=== PATIENT | female | born 2000 | race Caucasian/White ===

== ENCOUNTER 2020-06-01 17:41 | Emergency (ER) | payer OTHER, SELFPAY ==
[2020-06-01 17:56] VITALS: BP 141/78; PULSE 114; RESP 16; O2SAT 99; BMI 35.2
--- NOTE | 2020-06-01 17:58 | XR_ITS ---
PROCEDURE: XR CHEST PORTABLE Referring Doctor: ArnettPepito ruth Patient Age:20Y CLINICAL HISTORY: cough patient is nauseous COMPARISON: No exams were available for comparison FINDINGS: AP portable upright chest performed today with no previous for comparison The lungs are well expanded and clear with nothing definitely acute. Heart is normal size roxy and mediastinal structures unremarkable The cardiomediastinal silhouette and pulmonary vascularity are within normal limits. The lungs are clear without infiltrates, suspicious nodules, or pleural effusions. No acute bony abnormalities. IMPRESSION: No acute findings. Lungs clear Dictated by: Brijesh Laguna MD 06/01/2020 21:49 Brijesh Laguna MD in [place] 06/01/2020 21:49
[2020-06-01 18:07] LABS: Basophils # 0.1 K/mm3 (0-0.2); Basophils % 0.3 % (0.1-2.0); Eosinophils # 0.4 K/mm3 (0.0-0.4); Eosinophils % 2.3 % (0.1-12.0); Hematocrit 40.8 % (37.0-47.0); Hemoglobin 13.6 g/dL (12.2-16.2); Lymphocytes # 1.9 K/mm3 (0.7-4.5); Lymphocytes % 10.4 % (10-50); Mean Corpuscular HGB Conc 33.3 g/dL (31.8-35.4); Mean Corpuscular Hemoglobin 27.4 pg (27.0-31.2); Mean Corpuscular Volume 82.4 fl (81-99); Mean Platelet Volume 6.9 fl (7.4-10.4); Monocytes % 5.3 % (1.7-9.3); Neutrophils # 15.3 K/mm3 (1.8-7.8); Neutrophils % 81.8 % (37.0-80.0); Platelet Count 426 K/mm3 (142-424); Red Blood Count 4.95 M/mm3 (4.20-5.40); Red Cell Distribution Width 13.1 % (11.5-17.5); White Blood Count 18.7 K/mm3 (4.8-10.8)
[2020-06-01 18:08] LABS: Chloride 100 mmol/L (98-107); MANUAL DIFFERENTIAL MANUAL DIFFERENTIAL (MANUAL DIFF); Potassium 3.8 mmoL/L (3.5-5.1); Sodium 136 mmol/L (136-145)
[2020-06-01 18:09] VITALS: BP 141/78; PULSE 115; O2SAT 98
[2020-06-01 18:11] LABS: Anion Gap 13.8 mEq/L (5-15); Blood Urea Nitrogen 7 mg/dl (7-17); Calcium 9.1 mg/dl (8.4-10.2); Carbon Dioxide 26 mmol/L (22.0-30.0); Creatinine Clearance Estimated 191 mL/min (50-200); Estimated Glomerular Filt Rate 126 ml/min (>60); GFR (African American) 153 ML/MIN (>60); Glucose 101 mg/dl (74-100)
[2020-06-01 18:12] LABS: HCG Qualitative, Serum Negative (Negative)
--- NOTE | 2020-06-01 18:17 | ECG_ITS ---
APPROVED REPORT Exam: Resting ECG HR:117 bpm ECG Measurements Heart Rate 117 AXES WA 138 P 49 QRSd 80 QRS 79 QT 304 T 34 QTc 424 Conclusion Sinus tachycardia Otherwise normal ECG Electronically signed by : Bandar Meyer, 06/02/2020 06:52:10
[2020-06-01 18:23] LABS: Eosinophils % 1 % (0-3); Lymphocytes % 5 % (10-50); Neutrophils % 86 % (42-76); Platelet Estimate Normal; RBC Morphology Normal; Total Cells Counted 100; Toxic Granulation 1+
[2020-06-01 18:37] VITALS: BP 148/89; PULSE 118; O2SAT 98
[2020-06-01 18:37] LABS: Coronavirus 19 IgG Antibody Negative (Negative); Coronavirus 19 IgM Antibody Negative (Negative)
[2020-06-01 19:03] LABS: Microscopic, Urine URINE MICROSCOPIC (MICROSCOPIC)
[2020-06-01 19:09] LABS: Appearance,Urine CLEAR (Clear); Bilirubin,Urine Negative (Negative); Blood, Urine 1+ (Negative); Color,Urine YELLOW (Yellow); Glucose,Urine (UA) Negative (Negative); Ketones,Urine Negative (Negative); Leukocyte Esterase,Urine Negative (Negative); Nitrate,Urine Negative (Negative); PH,Urine 6.5 (5.0-8.5); Protein,Urine Negative (Negative); Urobilinogen,Urine 0.2 EU/dl (0.2)
[2020-06-01 19:13] LABS: Mucus,Urine 1+ /lpf
--- NOTE | 2020-06-01 19:18 | HMH.EDGENADL ---
ED Disposition Clinical Impression: Upper respiratory infection, Viral infection Disposition: Home, Self-Care Condition on Discharge: Fair Instructions: DI for Acute Bronchitis Prescriptions: ondansetron HCL [Zofran 4mg Tab*] 4 mg PO TIDP PRN #[id number] tab PRN Reason: Nausea Transmission Status: Pending to [facility] Referrals: Amanda Morgan MD [Primary Care Provider] - - Critical Care Critical Care Time: No Attestation: On 06/01/20, the high probability of a clinically significant, sudden or life threatening deterioration of the following system(s) required my full and direct attention, intervention and personal management. The time I documented below is in addition to time spent performing reported procedures but includes the following listed in this critical care notation. Medical Decision Making - Medical Records Medical records reviewed: Yes: I reviewed the patient's medical records. - Juan Inquiry Pt receiving controlled substance: No Vital Signs: 06/01/20 17:56 06/01/20 18:09 06/01/20 18:37 Pulse Rate [Right Brachial] 114 H 115 H 118 H Respiratory Rate 16 Blood Pressure [Right Arm] 141/78 H 141/78 H 148/89 H Blood Pressure Mean [Right Arm] 99 99 108 Blood Pressure Source [Right Arm] Automatic Cuff Automatic Cuff Automatic Cuff Blood Pressure Position [Right Arm] Sitting Sitting Sitting 02 Sat by Pulse Oximetry 99 98 98 Oxygen Delivery Method Room Air Room Air Room Air - Lab Data Lab Results 06/01/20 17:55: Sodium 136, Potassium 3.8, Chloride 100, Carbon Dioxide 26, Anion Gap 13.8, BUN 7, Creatinine 0.60, Estimated Creat Clear 191, Estimated GFR 126, Est GFR ( Amer) 153, Glucose 101 H, Calcium 9.1 06/01/20 17:55: Serum HCG, Qual Negative 06/01/20 17:55: WBC 18.7 H, RBC 4.95, Hgb 13.6, Hct 40.8, MCV 82.4, MCH 27.4, MCHC 33.3, RDW 13.1, Plt Count 426 H, MPV 6.9 L, Neut % (Auto) 81.8 H, Lymph % (Auto) 10.4, [place]ower % (Auto) 5.3, Eos % (Auto) 2.3, Baso % (Auto) 0.3, Neut # (Auto) 15.3 H, Lymph # (Auto) 1.9, Mower # (Auto) 1.0, Eos # (Auto) 0.4, Baso # (Auto) 0.1, Total Counted 100, Neutrophils % (Manual) 86 H, Band Neutrophils % 8.0, Lymphocytes % (Manual) 5 L, Eosinophils % (Manual) 1, Toxic Granulation 1+, Platelet Estimate Normal, RBC Morphology Normal 06/01/20 17:55: SARS-CoV-2 IgG Ab (Rapid) Negative, SARS-CoV-2 IgM Ab (Rapid) Negative 06/01/20 19:00: Urine Color Yellow, Urine Appearance Clear, Urine pH 6.5, Ur Specific [facility] 1.010, Urine Protein Negative, Urine Glucose (UA) Negative, Urine Ketones Negative, Urine Blood 1+, Urine Nitrate Negative, Urine Bilirubin Negative, Urine Urobilinogen 0.2, Ur Leukocyte Esterase Negative, Urine RBC 3-5, Urine Mucus 1+ Result diagrams: 06/01/20 17:55 06/01/20 17:55 Orders (Tests/Meds): ED MEDICATIONS Generic Name Dose Route Start Last Admin Trade Name Freq PRN Reason Stop Dose Admin Sodium Chloride 1,000 mls @ 999 mls/hr 06/01/20 18:15 06/01/20 18:12 Sod Chlor 0.9% 1000ml Bag IV 06/01/20 19:15 999 mls/hr .Q1H1M ABRIL Administration Lactated Ringer's 1,000 mls @ 999 mls/hr 06/01/20 18:15 Lactated Ringer's 1000 Ml Bag IV 06/01/20 19:15 .Q1H1M ABRIL Discontinued Medications Generic Name Dose Route Start Last Admin Trade Name Freq PRN Reason Stop Dose Admin Acetaminophen 1,000 mg 06/01/20 18:00 06/01/20 18:12 Acetaminophen 500mg Tab PO 06/01/20 18:01 1,000 mg ONCE ONE Administration Lactated Ringer's 2,000 mls @ 999 mls/hr 06/01/20 18:00 06/01/20 18:14 Lactated Ringer's 1000 Ml Bag IV 06/01/20 20:00 Not Given .Q2H1M ABRIL Ibuprofen 400 mg 06/01/20 18:00 06/01/20 18:10 Ibuprofen 400 Mg Tablet PO 06/01/20 18:01 400 mg ONCE ONE Administration Ondansetron HCl 4 mg 06/01/20 18:00 06/01/20 18:14 Ondansetron 4mg Odt SL 06/01/20 18:01 Not Given ONCE ONE Ondansetron HCl 4 mg 06/01/20 18:05 06/01/20 18:12 Ondansetron 4mg/2ml Vial IV 06/01/20 18:06 4 mg ONCE
[2020-06-01 19:57] VITALS: BP 103/52; PULSE 101; RESP 16; TEMP 36.7; O2SAT 100
== END 2020-06-01 20:42 | disposition home or self-care (01) ==
PROVIDERS: Emergency Provider Emergency Medicine; PCP Family Medicine
DX: J06.9 Acute upper respiratory infection, unspecified (principal); Z01.84 Encounter for antibody response examination
CPT/HCPCS: 71045; 80048; 81001; 84703; 85007; 85025; 86328; 93005; 96365; 96366; 96375; 99283; J2405

== ENCOUNTER 2021-10-08 14:08 | Outpatient (CLI) | payer OTHER, SELFPAY ==
[2021-10-08 14:13] VITALS: BP 160/84; PULSE 115; RESP 20; TEMP 36.9; O2SAT 98; BMI 37.8
[2021-10-08 14:55] LABS: Fetal Membrane Rupture (Rapid) Negative (Negative)
== END 2021-10-08 15:15 | disposition home or self-care (01) ==
LOC: OBOUT 14:10 → OB 14:11
PROVIDERS: Visit Provider Nurse Practitioner Obstetrics & Gynecology
DX: O26.892 Other specified pregnancy related conditions, second trimester (principal); Z3A.22 22 weeks gestation of pregnancy
CPT/HCPCS: 59025; 84112; G0463

== ENCOUNTER → 2021-10-29 12:51 | Outpatient (CLI) | payer OTHER, SELFPAY | PROVIDERS: PCP Family Medicine; Visit Provider Family Medicine | DX: I49.9 Cardiac arrhythmia, unspecified (principal) | CPT/HCPCS: 93225; 93226 ==

== ENCOUNTER 2023-09-29 15:37 | Outpatient (CLI) | payer OTHER, SELFPAY ==
[2023-09-29 18:12] LABS: HCG,Quantitative < 2 mIU/ml (0-5.42)
== END 2023-09-29 23:59 ==
PROVIDERS: PCP Family Medicine; Visit Provider Nurse Practitioner Obstetrics & Gynecology
DX: Z32.01 Encounter for pregnancy test, result positive (principal)
CPT/HCPCS: 36415; 84702

== ENCOUNTER 2023-10-01 15:34 | Emergency (ER) | payer OTHER, SELFPAY ==
[2023-10-01 15:45] VITALS: BP 145/84; PULSE 113; RESP 20; TEMP 37.3; O2SAT 100; BMI 37.3
--- NOTE | 2023-10-01 15:58 | EXP.UTC ---
Discharge Plan Disposition Patient Disposition: Home, Self-Care Condition: Good Prescriptions Prescriptions: New penicillin V potassium 250 mg/5 mL recon soln 500 mg PO BID 10 Days Qty: 200 0RF No Action levonorgestrel-ethinyl estrad [Aviane] 0.1-20 mg-mcg tablet See Rx Instructions .ROUTE .COMPLEX Qty: 28 12RF Dose Instruction: TAKE ONE TABLET BY MOUTH EVERY DAY Rx Instructions: TAKE ONE TABLET BY MOUTH EVERY DAY duloxetine 30 mg capsule,delayed release(DR/EC) 30 mg PO DAILY Referrals Follow up/Referrals: Amanda Morgan MD [Primary Care Provider] - See instructions Activity Restrictions/Add. Instructions Additional Instructions/Restrictions: *Monitor Temp, Over the counter Motrin or Tylenol as directed/as needed Tylenol every 4 hours and Motrin every 6 hours (as long as your family doctor has told you that you can take it) for fever or pain. and straight to ER if unable to lower temp less than 101.0 after medication given *Warm salt water gargles may help to soothe the throat *Throat Lozenges? *Warm fluids like tea with honey may help to soothe the throat? *Sleep elevated? *Humidifier/Vaporizer *If you did not take Penicillin shot or was unable to, start taking antibiotic immediately and make sure that you take it for the FULL length of time although you should start to feel better in 24-48 hours *change toothbrush and toothpaste 24-48 hours after starting to take antibiotics so you do not reinfect yourself Monitor Temp. Tylenol and/or Ibuprofen as needed. ER if fever is no less than 101 despite alternating Tylenol and Ibuprofen * Encourage fluids, water, Gatorade, powerade, pedialyte if /toddler/or child *Cold fluids, popsicles and ice cream may feel good on his throat Follow up IMMEDIATELY for new or worsening symptoms or no Noticeable improvement over the next 48-72 hours. 911 for difficulty breathing or swallowing Clinical Impressions Clinical Impression: Strep throat Stand Alone Forms Stand Alone Forms: Work/School Release Instructions Patient Instructions: DI for Strep Throat, Strep Throat Discharge ED Provider: Sheree Early [facility] [place] HPI General Stated complaint: sore throat Mode of Arrival: Ambulatory Source of Information: Patient Limitations: No Limitations Time Seen by Provider: 10/01/23 15:58 Description of Symptoms (Recalled from Triage Doc. by RN): PATIENT C/O SORE THROAT, HEADACHE, AND FEVER THAT STARTED LAST NIGHT HEENT Symptoms (Recalled from RN notes): Yes Resp Symptoms (Recalled from RN notes): No Skin Symptoms (Recalled from RN notes): No MS Symptoms (Recalled from RN notes): No Functional Status (Recalled from RN notes): WNL History of Present Illness Provider Complaint: Patient states that she started last night with sore throat and headache States today it hurts bad when she swallows and her throat feels swollen and irritated Related Data Home Medications Medication Instructions Recorded Confirmed duloxetine 30 mg capsule,delayed 30 mg PO DAILY 10/01/23 10/01/23 release Previous Rx's Medication Instructions Recorded levonorgestrel-ethinyl estradiol See Rx Instructions .Route 06/01/23 0.1 mg-20 mcg tablet (Aviane) .COMPLEX #28 tabs penicillin V potassium 250 mg/5 mL 500 mg (10 mL) PO BID 10 days #200 10/01/23 oral solution mL Allergies Allergy/AdvReac Type Severity Reaction Status Date / Time No Known Allergies Allergy Verified 03/30/22 08:45 Worker's Comp Is this a Worker's Comp case?: No [facility] Disclaimer: The information contained in this section may have been updated after the patient was seen, as this information can be updated by other users. Social History Smoking Status: Never smoker alcohol intake: never current occupational status: employed Travel in the last 8 weeks: None ROS Obtained: Yes All systems reviewed & no additional complaints except as documented and Yes Systems reviewed as appropriate & no additional complaints except as documented Constitutional Constitutional: Reports system reviewed and no additional complaints, except as documented, Reports as per HPI and Reports headache(s) ENT Ears, Nose, Mouth, and Throat: Reports system reviewed and no additional complaints, except as documented, Reports as per HPI, Reports headache(s) and Reports sore throat Cardiovascular Cardiovascular: Reports system reviewed and no additional complaints, except as documented and Reports as per HPI Respiratory Respiratory: Reports system reviewed and no additional complaints, except as documented and Reports as per HPI Gastrointestinal Gastrointestingal: Reports system reviewed and no additional complaints, except as documented and as per HPI Neurologic Neurologic: Reports headache(s) Physical Exam General General appearance: alert and in no apparent distress ENT ENT exam: Present mucous membranes moist Expanded ENT Exam Throat exam: Present tonsillar erythema and tonsillar exudate Respiratory Respiratory exam: Present normal lung sounds bilaterally; Absent respiratory distress or wheezes Cardiovascular Cardiovascular exam: Present regular rate, normal rhythm and tachycardia Neurological Exam Neurological exam: Present alert, oriented X3 and normal gait Medical Decision Making Juan Inquiry Pt receiving controlled substance: No Juan was queried for this patient: No Vital Signs: 10/01/23 15:45 Temperature 99.1 F Temperature Source Oral Pulse Rate [Left Brachial] 113 H Respiratory Rate 20 Blood Pressure [Left Arm] 145/84 H Blood Pressure Mean [Left Arm] 104 Blood Pressure Source [Left Arm] Automatic Cuff Blood Pressure Position [Left Arm] Sitting 02 Sat by Pulse Oximetry 100 Oxygen Delivery Method Room Air Lab Data Lab results reviewed: Yes I reviewed the patient's lab results.
[2023-10-01 15:59] VITALS: BP 145/84; PULSE 113; RESP 20; TEMP 37.3; O2SAT 100
[2023-10-01 15:59] LABS: UTC Strep Screen (Rapid) Positive (Negative)
[2023-10-01 16:07] LABS: UTC Influenza A Antigen Negative (Negative); UTC Influenza B Antigen Negative (Negative)
== END 2023-10-01 16:07 | disposition home or self-care (01) ==
PROVIDERS: Emergency Provider Nurse Practitioner; PCP Family Medicine
DX: J02.0 Streptococcal pharyngitis (principal); R51.9 Headache, unspecified; R50.9 Fever, unspecified
CPT/HCPCS: 87804; 87880; 99204; 99212; G0463

== ENCOUNTER 2023-12-27 12:55 | Outpatient (CLI) | payer OTHER, SELFPAY ==
[2023-12-27 14:25] LABS: HCG,Quantitative < 2 mIU/ml (0-5.42)
== END 2023-12-27 23:59 | disposition home or self-care (01) ==
LOC: LAB 12:56
PROVIDERS: PCP Family Medicine; Visit Provider Obstetrics & Gynecology
DX: Z32.01 Encounter for pregnancy test, result positive (principal)
CPT/HCPCS: 36415; 84702

== ENCOUNTER 2024-01-04 18:31 | Emergency (ER) | payer OTHER, SELFPAY ==
[2024-01-04 18:32] VITALS: BP 145/90; PULSE 83; RESP 18; TEMP 36.8; O2SAT 100; BMI 38.2
[2024-01-04 18:42] VITALS: BP 145/90; PULSE 89; O2SAT 100
--- NOTE | 2024-01-04 18:42 | ED_ITS ---
Discharge Plan Disposition Patient Disposition: Home, Self-Care Prescriptions Prescriptions: No Action levonorgestrel-ethinyl estrad [Aviane] 0.1-20 mg-mcg tablet See Rx Instructions .ROUTE .COMPLEX Qty: 28 12RF Dose Instruction: TAKE ONE TABLET BY MOUTH EVERY DAY Rx Instructions: TAKE ONE TABLET BY MOUTH EVERY DAY duloxetine 30 mg capsule,delayed release(DR/EC) 30 mg PO DAILY penicillin V potassium 250 mg/5 mL recon soln 500 mg PO BID 10 Days Qty: 200 0RF Referrals Follow up/Referrals: Amanda Morgan MD [Primary Care Provider] - See instructions Activity Restrictions/Add. Instructions Additional Instructions/Restrictions: Your quantitative beta-hCG was undetectably low no evidence that you had a , miscarriage, or other emergent medical condition such as an ectopic . Your symptoms are consistent with abnormal uterine bleeding which is most of the time from some hormonal imbalance. Please follow-up with her [employer] doctor if you would like you may return to the emergency department if you are bleeding through more than 1 pad an hour or other concerns. Clinical Impressions Clinical Impression: Abnormal uterine bleeding Discharge ED Provider: Alan Boyle General Adult HPI General Chief complaint: Vaginal Bleeding Stated complaint: vaginal bleeding, poss miscarriage Time Seen by Provider: 01/04/24 18:34 History of Present Illness HPI narrative: Patient is a 23-year-old female presenting today with possible and vaginal bleeding. She is a G1, P1 and states that she had positive test at home however recently followed up with her [employer] doctor and had an undetectable quantitative beta-hCG so she is not sure as to whether or not she was . She was 6 days late with her period and now is having some vaginal bleeding/spotting nothing significant and some lower back cramping. No significant pain. She is trying to get , this was intentional. She has close follow-up with Dr. Gomez. Related Data Home Medications Medication Instructions Recorded Confirmed duloxetine 30 mg capsule,delayed 30 mg PO DAILY 10/01/23 10/01/23 release Previous Rx's Medication Instructions Recorded levonorgestrel-ethinyl estradiol See Rx Instructions .Route 06/01/23 0.1 mg-20 mcg tablet (Aviane) .COMPLEX #28 tabs penicillin V potassium 250 mg/5 mL 500 mg (10 mL) PO BID 10 days #200 10/01/23 oral solution mL Allergies Allergy/AdvReac Type Severity Reaction Status Date / Time No Known Allergies Allergy Verified 03/30/22 08:45 [facility] Disclaimer: The information contained in this section may have been updated after the patient was seen, as this information can be updated by other users. Social History Smoking Status: Never smoker alcohol intake: never current occupational status: employed Travel in the last 8 weeks: None ROS Obtained: Yes All systems reviewed & no additional complaints except as documented Physical Exam General General appearance: alert and in no apparent distress Respiratory Respiratory exam: Present normal lung sounds bilaterally Cardiovascular Cardiovascular exam: Present regular rate Abdominal Exam Abdominal exam: Present soft; Absent distention or tenderness Neurological Exam Neurological exam: Present alert and oriented X3 Medical Decision Making Juan Inquiry Pt receiving controlled substance: No Vital Signs: 01/04/24 18:32 01/04/24 18:42 01/04/24 19:00 Temperature 98.2 F Temperature Source Oral Pulse Rate 89 84 Pulse Rate [Radial] 83 Respiratory Rate 18 Blood Pressure 145/90 H 124/72 Blood Pressure [Right Arm] 145/90 H Blood Pressure Mean [Right Arm] 108 Blood Pressure Source [Right Arm] Automatic Cuff Blood Pressure Position [Right Arm] Sitting 02 Sat by Pulse Oximetry 100 100 100 Oxygen Delivery Method Room Air Room Air Lab Data Lab results reviewed: Yes I reviewed the patient's lab results. Lab Results 01/04/24 18:48: WBC 7.3, RBC 4.50, Hgb 12.1 L, Hct 36.1 L, MCV 80.3 L, MCH 26.9 L, MCHC 33.5, RDW 14.4, Plt Count 404, MPV 6.7 L, Neut % (Auto) 55.1, Lymph % (Auto) 35.8, [place] % (Auto) 5.8, Eos % (Auto) 2.6, Baso % (Auto) 0.7, Neut # (Auto) 4.0, Lymph # (Auto) 2.6, [place] # (Auto) 0.4, Eos # (Auto) 0.2, Baso # (Auto) 0.1, PT 10.7, INR 0.99, APTT 26.7, Sodium 139, Potassium 4.0, Chloride 106, Carbon Dioxide 26, Anion Gap 11.0, BUN 10, Creatinine 0.70, Estimated Creat Clear 174, Estimated GFR 103, Est GFR ( Amer) 124, Glucose 91, Calcium 8.8, Total Bilirubin 0.3, AST 25, ALT 20, Alkaline Phosphatase 74, Total Protein 7.5, Albumin 4.3, Globulin 3.2, Albumin/Globulin Ratio 1.3, HCG, Quant < 2 01/04/24 18:48 01/04/24 18:48 Orders (Tests/Meds): ORDERS Category Date Time Status POCUS Point of Care (ER Only) Stat Exams 01/04/24 18:34 Ordered Beta HCG, Quant [HCG,Quantitative] Stat Lab 01/04/24 18:48 Completed CBC w/Auto Diff [Complete Blood Count Auto Diff] Stat Lab 01/04/24 18:48 Completed CMP [Comprehensive Metabolic Panel] Stat Lab 01/04/24 18:48 Completed PT/PTT Stat Lab 01/04/24 18:48 Completed Medical Decision Narrative: 23-year-old G1, P1 presenting today with vaginal spotting and possible with positive home test but recent undetectably low quantitative hCG. Limited bedside ultrasound did not demonstrate an IUP cannot rule out intrauterine nor ectopic at this point. Will get a another quantitative beta-hCG is unlikely that she is with this recent history. Likely just abnormal uterine bleeding. She is very stable in appearance abdominal exam is benign will reassess after these blood test return. Assessment 7:38 PM patient's quantitative hCG is once again undetectably low this is not consistent with a more consistent with abnormal uterine bleeding most likely secondary to hormone imbalance. She may follow-up with her [employer] doctor return with any significant worsening of her symptoms. Labs otherwise unremarkable she remains hemodynamically stable and serial abdominal exams are benign. Procedures Miscellaneous Procedure Procedure Performed: Limited OB ultrasound Indication: Positive home test Identified structures: [-Uterus -Left adnexa -Right adnexa -Pouch of Suhail] Findings: Uterus: No definitive IUP Uterus appears decompressed and a normal vaginal stripe Right adnexa: No free fluid Left adnexa: No free fluid Cul de sac: No free Impression: No evidence of intrauterine cannot rule out ectopic no free fluid noted Images were saved to permanent archive The study was technically adequate CPT Transabdominal: 59598-31 This study was performed by me, and I personally interpreted all images/videos. Based on my clinical judgement, these images were adequate and did not necessitate further imaging. Critical Care Critical Care Time Critical Care Time: No
[2024-01-04 18:59] LABS: Basophils # 0.1 K/mm3 (0-0.2); Basophils % 0.7 % (0.1-2.0); Eosinophils # 0.2 K/mm3 (0.0-0.4); Eosinophils % 2.6 % (0.1-12.0); Hematocrit 36.1 % (37.0-47.0); Hemoglobin 12.1 g/dL (12.2-16.2); Lymphocytes # 2.6 K/mm3 (0.7-4.5); Lymphocytes % 35.8 % (10-50); Mean Corpuscular HGB Conc 33.5 g/dL (31.8-35.4); Mean Corpuscular Hemoglobin 26.9 pg (27.0-31.2); Mean Corpuscular Volume 80.3 fl (81-99); Mean Platelet Volume 6.7 fl (7.4-10.4); Monocytes # 0.4 K/mm3 (0.1-1.0); Monocytes % 5.8 % (1.7-9.3); Neutrophils % 55.1 % (37.0-80.0); Platelet Count 404 K/mm3 (142-424); Red Cell Distribution Width 14.4 % (11.5-17.5); White Blood Count 7.3 K/mm3 (4.8-10.8)
[2024-01-04 19:00] VITALS: BP 124/72; PULSE 84; O2SAT 100
[2024-01-04 19:10] LABS: Chloride 106 mmol/L (98-107); Sodium 139 mmol/L (136-145)
[2024-01-04 19:12] LABS: Alanine Aminotransferase 20 U/L (12-78); Alkaline Phosphatase 74 U/L (38-126); Aspartate Amino Transferase 25 U/L (14-36); Bilirubin,Total 0.3 mg/dl (0.2-1.3); Blood Urea Nitrogen 10 mg/dl (7-17); Creatinine Clearance Estimated 174 mL/min (50-200); Estimated Glomerular Filt Rate 103 ml/min (>60); GFR (African American) 124 ML/MIN (>60)
[2024-01-04 19:13] LABS: Albumin Level 4.3 g/dl (3.5-5.0); Albumin/Globulin Ratio 1.3 (1.1-1.8); Calcium 8.8 mg/dl (8.4-10.2); Carbon Dioxide 26 mmol/L (22.0-30.0); Globulin 3.2 g/dL (1.3-3.2); Glucose 91 mg/dl (74-100); Total Protein,Serum 7.5 g/dl (6.3-8.2)
[2024-01-04 19:17] LABS: Activated Partial Thrombo Time 26.7 seconds (22.8-30.6); INR 0.99 (0.9-1.1); Prothrombin Time 10.7 seconds (10.1-12.5)
[2024-01-04 19:30] LABS: HCG,Quantitative < 2 mIU/ml (0-5.42)
[2024-01-04 19:38] VITALS: BP 111/65; PULSE 87; RESP 15; TEMP 36.7; O2SAT 100
== END 2024-01-04 19:44 | disposition home or self-care (01) ==
PROVIDERS: Emergency Provider Student in an Organized Health Care Education/Training Program; PCP Family Medicine
DX: N93.9 Abnormal uterine and vaginal bleeding, unspecified (principal)
CPT/HCPCS: 80053; 84702; 85025; 85610; 85730; 99284

== ENCOUNTER 2024-06-19 15:24 | Outpatient (CLI) | payer OTHER, SELFPAY ==
[2024-06-19 17:20] LABS: HCG,Quantitative 6603 mIU/ml (0-5.42)
[2024-06-20 03:36] LABS: Progesterone 9.5 ng/mL (.)
== END 2024-06-19 23:59 | disposition home or self-care (01) ==
LOC: LAB 15:26
PROVIDERS: PCP Family Medicine; Visit Provider Nurse Practitioner Obstetrics & Gynecology
DX: Z34.90 Encounter for supervision of normal pregnancy, unspecified, unspecified trimester (principal)
CPT/HCPCS: 36415; 84144; 84702

== ENCOUNTER 2024-06-28 15:01 | Outpatient (CLI) | payer OTHER, SELFPAY ==
--- NOTE | 2024-06-28 15:03 | US_ITS ---
PROCEDURE: US OB <= 14 WEEKS FETUS CLINICAL INDICATION: Dates /Confirmation COMPARISON: US POINT OF CARE US (ER ONLY) from 01/04/2024 FINDINGS: Transvaginal sonographic images of the pelvis were obtained. Her last menstrual period is unknown. An intrauterine gestational sac is present with a pole with a crown-rump length of 0.53cm This correlates to a gestational age of 6weeks 3days. IVETT will be 02/18/2025 heart rate activity is present with an FHR of 126bpm. Yolk sac is noted. The yolk sac measures 4.7mm. The right ovary is seen and appears normal. There is a corpus luteum in the right ovary. The left ovary is seen and appears normal. There is no fluid in the cul-de-sac. IMPRESSION: 1. Embryo within the uterine cavity currently measuring 6 weeks 3 days. heart rate activity is seen. 2. IVETT will be 02/18/2025 based on this ultrasound. 3. Both ovaries are seen and appear normal. A corpus luteum is present in the right ovary. 4. No fluid in the cul-de-sac. Dictated by: Xavier Black MD 06/29/2024 03:07 Xavier Black MD in [place] 06/29/2024 03:08
== END 2024-06-28 23:59 | disposition home or self-care (01) ==
LOC: RAD 15:01
PROVIDERS: PCP Family Medicine; Visit Provider Nurse Practitioner Obstetrics & Gynecology
DX: O36.80X0 Pregnancy with inconclusive fetal viability, not applicable or unspecified (principal)
CPT/HCPCS: 76801

== ENCOUNTER 2024-08-02 10:21 | Outpatient (CLI) | payer OTHER, SELFPAY | END 2024-08-02 23:59 | disposition home or self-care (01) | LOC: LAB.DROPOF 08-03 10:22 | PROVIDERS: PCP Nurse Practitioner Obstetrics & Gynecology; Visit Provider Nurse Practitioner Obstetrics & Gynecology | DX: Z34.81 Encounter for supervision of other normal pregnancy, first trimester (principal) | CPT/HCPCS: 87086 ==

== ENCOUNTER 2024-08-22 15:49 | Outpatient (CLI) | payer OTHER, SELFPAY ==
[2024-08-22 16:10] LABS: Basophils % 0.3 % (0.1-2.0); Eosinophils # 0.1 K/mm3 (0.0-0.4); Eosinophils % 1.4 % (0.1-12.0); Hematocrit 31.1 % (37.0-47.0); Hemoglobin 10.6 g/dL (12.2-16.2); Lymphocytes # 2.2 K/mm3 (0.7-4.5); Lymphocytes % 25.1 % (10-50); Mean Corpuscular HGB Conc 34.1 g/dL (31.8-35.4); Mean Corpuscular Hemoglobin 27.6 pg (27.0-31.2); Mean Platelet Volume 8.5 fl (7.4-10.4); Monocytes # 0.6 K/mm3 (0.1-1.0); Monocytes % 6.6 % (1.7-9.3); Neutrophils # 5.8 K/mm3 (1.8-7.8); Neutrophils % 66.3 % (37.0-80.0); Platelet Count 322 K/mm3 (142-424); Red Blood Count 3.84 M/mm3 (4.20-5.40); Red Cell Distribution Width 13.2 % (11.5-17.5); White Blood Count 8.8 K/mm3 (4.8-10.8)
[2024-08-22 17:25] LABS: HIV Combo NEGATIVE (Negative)
[2024-08-22 17:33] LABS: Hepatitis C Ab Qual. W/ RFX NEGATIVE (Negative)
[2024-08-23 05:08] LABS: Hepatitis B Surface Antigen Negative (Negative)
[2024-08-23 06:39] LABS: Rubella Antibodies, IgG <0.90 index (Immune >0.99)
[2024-08-23 23:39] LABS: RPR W/RFX Titers Nonreactive (Nonreactive)
== END 2024-08-22 23:59 | disposition home or self-care (01) ==
LOC: LAB 15:50
PROVIDERS: PCP Family Medicine; Visit Provider Nurse Practitioner Obstetrics & Gynecology
DX: Z34.81 Encounter for supervision of other normal pregnancy, first trimester (principal)
CPT/HCPCS: 36415; 85025; 86592; 86762; 86803; 86850; 87340; 87389

== ENCOUNTER 2024-10-05 15:02 | Outpatient (CLI) | payer OTHER, SELFPAY ==
--- NOTE | 2024-10-05 15:02 | US_ITS ---
PROCEDURE: US OB /MATERNAL DETAIL CLINICAL INDICATION: 20 week anatomy scan-US OB Complete COMPARISON: US US OB <= 14 WEEKS FETUS from 06/28/2024 FINDINGS: Transabdominal sonographic images of the pelvis were obtained. From her established due date she is . Single viable intrauterine gestation. Cephalic position. Placenta: Posteriorplacenta grade 1. The anterior wall of the uterus is thickened and could represent a small contraction. There is an average amount of fluid. The cervix appears satisfactory. Closed and measuring 3.92 cm in length. Complete survey performed and was unremarkable on the submitted images as in PACS. No discrete anomalies identified on survey imaging by technologist. Active fetus. Three-vessel cord with satisfactory umbilical cord insertion. 4- chamber heart noted. Situs, aortic arch, LVOT, RVOT, three-vessel view appear normal. There is an echogenic area in the left atrium of the heart. Survey of brain & ventricles Unremarkable. Cerebellum, thalamus, choroid plexus, cisterna magna appear normal. Face and neck survey unremarkable. Profile, nasion, lips and nose appeared normal. Diaphragm and chest views unremarkable. Abdomen: Both kidneys noted and unremarkable. Stomach and bladder noted and satisfactory. Spine: Survey of the spine satisfactory with no anomalies identified nor imaged. Cervical, thoracic, lower spine appear normal. Both arms and legs noted. Amniotic Fluid: Adequate. MVP 6.79 cm Measurements: Average ultrasound age 21weeks 4days. Estimated due date by ultrasound age 0702/11/2025. Estimated weight 421g BPD = 21weeks 5days HC = 21weeks 3days AC = 21weeks 2days FL = 21weeks 5days Growth Percentile= 87 Heart Rate = 161bpm Cerebellum = 20weeks 5days Humerus = 21weeks 6days HC/AC is 1.18 FL/BPD is 0.71 FL/AC is 0.23 IMPRESSION: 1. Viable fetus in the cephalic presentation with a posterior placenta grade 1. 2. The fluid is within normal limits with an MVP 6.79 cm. 3. There appears to be a small echogenic area within the left atrium of the heart. 4. There is a thickening of the anterior uterine wall which most likely represents a small contraction. 5. The rest of the anatomical scan appears normal. 6. Suggest a maternal medicine consult to look at the heart. Dictated by: Xavier Black MD 10/05/2024 18:15 Xavier Black MD in [place] 10/05/2024 18:15
== END 2024-10-05 23:59 | disposition home or self-care (01) ==
LOC: RAD 15:02
PROVIDERS: PCP Family Medicine; Visit Provider Nurse Practitioner Obstetrics & Gynecology
DX: Z36.3 Encounter for antenatal screening for malformations (principal); Z3A.20 20 weeks gestation of pregnancy; Z98.891 History of uterine scar from previous surgery
CPT/HCPCS: 76811

== ENCOUNTER 2024-11-22 07:40 | Outpatient (CLI) | payer OTHER, SELFPAY ==
[2024-11-22 09:13] LABS: Basophils % 0.3 % (0.1-2.0); Eosinophils # 0.1 Kmm3 (0.0-0.4); Eosinophils % 1.4 % (0.1-12.0); Hematocrit 33.7 % (37.0-47.0); Hemoglobin 11.5 g/dL (12.2-16.2); Immature Granulocytes # 0.05 10^3uL; Immature Granulocytes % 0.6 %; Lymphocytes # 1.7 K/mm3 (0.7-4.5); Lymphocytes % 19.5 % (10-50); Mean Corpuscular HGB Conc 34.1 g/dL (31.8-35.4); Mean Corpuscular Hemoglobin 28.5 pg (27.0-31.2); Mean Corpuscular Volume 83.6 fl (81-99); Mean Platelet Volume 8.7 fl (7.4-10.4); Monocytes # 0.5 K/mm3 (0.1-1.0); Monocytes % 6.1 % (1.7-9.3); Neutrophils # 6.3 K/mm3 (1.8-7.8); Neutrophils % 72.1 % (37.0-80.0); Nucleated Red Blood Cells # 0 10^3/uL; Nucleated Red Blood Cells % 0 %; Platelet Count 310 K/mm3 (142-424); Red Blood Count 4.03 M/mm3 (4.20-5.40); Red Cell Distribution Width 13.8 % (11.5-17.5); Red Cell Distribution Width-SD 42.1 fL; White Blood Count 8.7 K/mm3 (4.8-10.8)
[2024-11-22 09:25] LABS: Glucose 1 Hour 167 mg/dL (74-100)
[2024-11-22 09:51] LABS: RPR W/RFX Titers Nonreactive (Nonreactive)
== END 2024-11-22 23:59 | disposition home or self-care (01) ==
PROVIDERS: PCP Family Medicine; Visit Provider Nurse Practitioner Obstetrics & Gynecology
DX: O09.93 Supervision of high risk pregnancy, unspecified, third trimester (principal); O24.419 Gestational diabetes mellitus in pregnancy, unspecified control; Z3A.27 27 weeks gestation of pregnancy
CPT/HCPCS: 36415; 82947; 85025; 86592

== ENCOUNTER 2024-11-24 08:43 | Outpatient (CLI) | payer OTHER, SELFPAY ==
[2024-11-24 09:40] LABS: Glucose,Fasting 87 mg/dl (74-100)
[2024-11-24 10:33] LABS: Glucose 1 Hour 208 mg/dL (74-100)
[2024-11-24 11:57] LABS: Glucose 2 Hour 175 mg/dL (74-100)
[2024-11-24 12:58] LABS: Glucose 3 Hour 154 mg/dL (74-100)
== END 2024-11-24 23:59 | disposition home or self-care (01) ==
LOC: LAB 08:43
PROVIDERS: PCP Family Medicine; Visit Provider Nurse Practitioner Obstetrics & Gynecology
DX: E74.39 Other disorders of intestinal carbohydrate absorption (principal)
CPT/HCPCS: 36415; 82951

== ENCOUNTER 2025-01-15 14:09 | Outpatient (CLI) | payer OTHER, SELFPAY ==
--- NOTE | 2025-01-15 14:12 | US_ITS ---
PROCEDURE: US OB BIOPHYSICAL PROFILE CLINICAL INDICATION: Needs for GDM COMPARISON: US US OB <= 14 WEEKS FETUS from 06/28/2024 US US OB /MATERNAL DETAIL from 10/05/2024 FINDINGS: Transabdominal sonographic images of the uterus were obtained. From her established due date she is 35weeks 1day. The following parameters are obtained: Viable Fetus in the cephalic presentation with an a posterior placenta grade 2. Measurements: heart Rate = 146bpm Amniotic fluid index: 19.64cm, MVP 6.59 cm Qualitative AFV:2 Breathing movements: 2 Gross Body Movements: 2 Tone: 2 Biophysical profile score: 8 No obvious anomalies evident.Kidneys, profile, stomach, bladder, four-chamber heart, three-vessel cord appear normal. IMPRESSION: 1. Viable fetus in the cephalic presentation with a posterior placenta grade 2. 2. The fluid is within normal limits with an amniotic fluid index 19.64 cm, MVP 6.59 cm. 3. Biophysical profile is 8/8 with good breathing movement and movement seen. 4. Limited anatomical scan appears normal. Dictated by: Xavier Black MD 01/15/2025 16:07 Xavier Black MD in OV 01/15/2025 16:07
--- OUTSIDE RECORDS SUMMARY | 2025-01-15 14:12 | XMS_ITS | Clinical Summary ---
Author Organization [facility] Address [address] [facility] [place] [address] Phone Care Team Providers Care Electronic Intelligence Officer Name Role Phone Unavailable Primary Care Provider Unavailabl e Allergies No known active allergies Medications vit no.[id number] ic 27 mg iron- 800 mcg Oral Tablet Take 1 Tablet by mouth daily. Active ferrous sulfate 325 mg (65 mg iron) Oral Tablet, Delayed Release (E.C.) Take 1 Tablet by mouth 2 times daily. 60 Tablet 6 2 Active Additional Information Patient not taking.Reported on 03/19/2022 ibuprofen (ADVIL;MOTRIN) 600 mg Oral Tablet Take 1 Tablet by mouth every 6 hours. 60 Tablet 1 02/10/2022 12:40 PM EDT 2 Active Additional Information Patient not taking.Reported on 03/19/2022 acetaminophen (TYLENOL) 500 mg Oral Tablet Take 2 Tablets by mouth every 6 hours. 60 Tablet 1 02/10/2022 12:40 PM EDT 2 Active Additional Information Patient not taking.Reason: Therapy Completed, Reported on 03/19/2022 Active Problems Problem Noted Date Diagnosed Date Delivery of by section 2021 Overview (02/07/2022): LTCS B Botello Uterine Atony EBL 800 Headache 08/18/2021 Overview (08/18/2021): Outside of as well Resolved Problems Problem Noted Date Diagnosed Date Resolved Date Normal labor and delivery 02/05/2022 Fall due to wet surface 12/08/202112/17 Gestational diabetes mellitu s (GDM) affecting 11/12/2021 03/19/2022 Overview (01/20/2022): Diabetic education 31wk EFW 1,829 68%, AC 68%, cephalic 36wk EFW 3,003 63% Recommend Delivery by IVETT Abnormal O'Haro glucose challenge test, antepartum 11/12/2021 03/19/2022 Supervision of normal first , antepartum 07/01/2021 03/19/2022 Overview (10/15/2021): pt GS:declined IVETT by LMP (c/w 7 wk US) PNL's nml COVID vaccine dose at 13wk. 2nd dose scheduled. Anatomy nml, anterior placenta, 3VC GCT Tdap Obesity affecting , antepartum 07/01/2021 03/19/2022 Overview (12/26/2021): HgbA1c 5.3 ASA 81mg qd (obesity, nulliparity) See GDM Immunizations Immunization Administration Dates Next Due PPD Test 10/30/2020 Surgical History Surgery Date Site/Laterality Comments TYMPANOSTOMY TUBE PLACEMENT WISDOM TOOTH EXTRACTION SECTION 02/06/2022 - 02/07/2022 Abdomen/N/A Primary section low transverse uterine incision at 2356 ; Surgeon: Chasidy Robert MD; Location: [facility]; Service: Obstetrics Medical History Medical History Date Comments Diabetes mellitus (HCC) Family History Medical History Relation Name Comments Heart Disease Brother Heart Disease Father Heart Disease Mother Relation Name Status Comments Brother Father Mother Social History Tobacco Use Types Packs/Day Years Used Date Smoking Tobacco: Never Smokeless Tobacco: Never Alcohol Use Standard Drinks/Week Comments Not Currently 0 (1 standard drink = 0.6 oz pur e alcohol) PHQ-2 Answer Date Recorded PHQ-2 Total Score 0 02/05/2022 Sexually Active Control Partners Comments Not Currently Male Comments No Sex and Gender Information Value Date Recorded Sex Assigned at Not on file Legal Sex Female 5:18 PM EDT Gender Identity Not on file Sexual Orientation Not on file Obstetrics History Para Term AB IAB SAB Ectopic Multiple Livin g Live Births 1 1 1 0 1 1 Date Outcome GA Total Labor Labor/2nd/3rd Weight Sex Type Anes PTL Candy A1 A5 Name Clin 022 Term 39w 3d 43h 44m 14h 44m/4h 57m/24h 03m 7 lb 8.6 oz (3.42 kg) M CSP Epidu ral,S jonah N Living 9 9 HAMIL TON,S DIEGO BABY Guyto n, Chasidy Raza MD Complications:Gestational di abetes Delivery Location:[facility] Last Filed Vital Signs Vital Sign Reading Time Taken Comments Blood Pressure 110/68 03/19/2022 9:09 AM EDT Pulse 70 02/10/2022 8:51 AM EDT Temperature 36.9 C (98.5 F) 02/10/2022 8:51 AM EDT Respiratory Rate 18 02/10/2022 8:51 AM EDT Oxygen Saturation 99% 02/10/2022 8:51 AM EDT Inhaled Oxygen Concentration - - Weight 78.7 kg (173 lb 9.6 oz) 03/19/2022 9:09 A M EDT Height 152.4 cm (5') 03/19/2022 9:09 AM EDT Body Mass Index 33.9 03/19/2022 9:09 AM EDT Plan of Treatment Health Maintenance Due Date Last Done Comments Annual Wellness Exam 2002 HPV (1 - 3-dose series) 2014 DTaP/TDaP/Td (1 - Tdap) 2018 Hepatitis B Vaccine (1 of 3 - 19+ 3-dose series) 2018 COVID-19 Vaccine ( - 2023-2 5 season) 2024 09/24/2021, 08/09/2021 Cervical Cancer Screening 07/23/2024 Pap Smear 07/23/2024 07/23/2021 Influenza Vaccine (Season Ended) 2025 Chlamydia Screening Discontinued 01/14/2022, 07/23/2021 Meningococcal B Vaccine Aged Out No l onger eligible based on patient's age to complete this topic Pneumococcal Vaccine 0-49 Aged Out No longer eligible based on patient's age to complete this topic Procedures Procedure Name Priority Date/Time Associated Diagnosis Comments CHLAMYDIA/GC BY TMA Routine 01/14/2022 1 0:30 AM EDT Supervision of normal first , antepartum DIRECTOR PUBLIC SERVICE CYTOLOGY REQUEST (PAP ONLY) Routine 07/23/2021 3:35 PM EST Encounter for supervision of normal first in first trimester from Last 3 Months or Most Recently Relevant to Health Maintenance Results * CHLAMYDIA/GC BY TMA (01/14/2022 10:30 AM EDT) Chlamydia trachomatis Not Detected Not Detected 01/15/2022 2:23 AM EDT PREFERRED Giving Assistant Neisseria gonorrhoeae Not Detected Not Detected 01/15/2022 2:23 AM EDT [employer] Swab SPECIMEN FROM UTERINE CERVIX / Unknown 01/14/2022 10:30 AM EDT 01/14/2022 10:30 AM EDT Narrative PREFERRED Giving Assistant - 01/15/2022 2:23 AM EDT Testing methodology is spragger mediated amplification (TMA) using the Aptima Combo 2 assay from [employer]. A negative result does not completely rule out a Chlamydia trachomatis or Neisseria gonorrhoeae infection due to potential inhibitors or levels present below the limit of detection by this assay. Results are dependent on proper collection and transport of specimen. This test is indicated for medical purposes only and should not be used for legal or forensic purposes. The performance characteristics of this assay were validated by the testing laboratory. This assay is FDA cleared to test the following specimens: clinician-collected endocervical, vaginal, male urethral swab specimens, rectal swabs, and throat/pharyngeal swabs; patient collected vaginal specimens within a clinic setting; Thin Prep Specimens in PreservCyt Solution; and first-stream, unpreserved male and female urine specimens. Detailed methodology is available upon request. Elizabeth William MD MICROBIOLOGY - GENER AL ORDERABLES Final Result [facility], [address] , [place] [address] * DIRECTOR PUBLIC SERVICE CYTOLOGY REQUEST (PAP ONLY) (07/23/2021 3:35 PM EST) CASE REPORT Gynecologic Cytology Report Case: [id number] Authorizing Provider: Abby Aguilar, Collected: 07/23/2021 1535 HOME DEMONSTRATOR Ordering Location: [facility] Received: 07/23/2021 1535 First Screen: [place] Dunbar CT Specimen: LIQUID-BASED PAP - CERVICAL/ENDOCERV ICAL, Cervix, Endocervical 07/25/2021 9:26 AM EST [facility] PAP FINAL DIAGNOSIS Negative for intraepithelial lesion or malignancy 07/25/2021 9:26 AM EST [facility] at 0926 EST MICROSCOPIC DESCRIPTION Microscopic examination is performed and the findings corroborate the diagnosis. 07/25/2021 9:26 AM EST [facility] PAP SMEAR ADEQUACY Satisfactory for evaluation 07/25/2021 9:26 AM EST [facility] PAP ORGANISMS NOTED Abundant bacteria present. 07/25/2021 9:26 AM EST [facility] ENDOCERVICAL T-ZONE Transformation zone present 07/25/2021 9:26 AM EST [facility] EMBEDDED IMAGES 9:26 AM EST [facility] PAP DISCLAIMER The Pap Smear is a screening test that aids in the detection of cervical cancer and cancer precursors. Both false positive and false negative results can occur. The test should be used at regular intervals, and positive results should be confirmed before definitive therapy. Processed using the ThinPrep Art Instructor Automated cytology screening device (Fuzmo). 07/25/2021 9:26 AM EST [facility] Thin Prep ENDOCERVICAL STRUCTURE / Unknown 07/23/2021 3:35 PM EST 07/23/2021 3:35 PM EST Abby Aguilar HOME DEMONSTRATOR CYTOLOGY ORDERABLES Fi [place]al [place] [address] from Last 3 Months or Most Recently Relevant to Health Maintenance Insurance 303[address] TAM [id number] [address] [address] [facility] [address] [address] [address] [address] Advance Directives For more information, please contact: [phone] * Full Code (Latest Code Status on File) Date Activated Date Inactivated Comments 02/05/2022 10:00 PM 02/10/2022 5:14 PM
== END 2025-01-15 23:59 | disposition home or self-care (01) ==
LOC: RAD 14:09
PROVIDERS: PCP Family Medicine; Visit Provider Obstetrics & Gynecology
DX: O24.419 Gestational diabetes mellitus in pregnancy, unspecified control (principal); Z3A.35 35 weeks gestation of pregnancy
CPT/HCPCS: 76819

== ENCOUNTER 2025-01-25 11:15 | Outpatient (CLI) | payer OTHER, SELFPAY ==
--- OUTSIDE RECORDS SUMMARY | 2025-01-26 13:30 | XMS_ITS | Clinical Summary ---
Author Organization [facility] Address [address] [facility] [place] [address] Phone Care Team Providers Care Livestock Judging Coach Name Role Phone Unavailable Primary Care Provider Unavailabl e Allergies No known active allergies Medications vit no.[id number] ic 27 mg iron- 800 mcg Oral [...] 2356 ; Surgeon: Chasidy Robert MD; Location: [facility]; Service: Obstetrics Medical History Medical [...] Chasidy Raza MD Complications:Gestational di abetes Delivery [facility] Last Filed Vital Signs [...] 07/23/2024 Pap Smear 07/23/2024 07/23/2021 Influenza Vaccine (#1) 2025 Chlamydia Screening Discontinued 01/14/2022, 07/23/2021 Meningococcal B Vaccine Aged Out No l onger eligible based on patient's age to complete this topic Pneumococcal Vaccine 0-49 Aged Out No longer eligible based on patient's age to complete this topic Procedures Procedure Name Priority Date/Time Associated Diagnosis Comments CHLAMYDIA/GC BY TMA Routine 01/14/2022 1 0:30 AM EDT Supervision of normal first , antepartum COMMISSION ASSOCIATE CYTOLOGY REQUEST (PAP ONLY) Routine 07/23/2021 3:35 PM EST Encounter for supervision of normal first in first trimester from Last 3 Months or Most Recently Relevant to Health Maintenance Results * CHLAMYDIA/GC BY TMA (01/14/2022 10:30 AM EDT) Chlamydia trachomatis Not Detected Not Detected 01/15/2022 2:23 AM EDT PREFERRED Des[facility] Neisseria gonorrhoeae Not Detected Not Detected 01/15/2022 2:23 AM EDT [employer] [employer] Swab SPECIMEN FROM UTERINE CERVIX / Unknown 01/14/2022 10:30 AM EDT 01/14/2022 10:30 AM EDT Narrative PREFERRED Desk - 01/15/2022 2:23 AM EDT Testing methodology is consumer lender mediated amplification (TMA) using the Aptima Combo 2 assay from [employer]. A negative result does not completely rule [...] AL ORDERABLES Final Result [facility], [address] , [place] [address] * COMMISSION ASSOCIATE CYTOLOGY REQUEST (PAP ONLY) (07/23/2021 3:35 PM EST) CASE REPORT Gynecologic Cytology Report Case: [id number] Authorizing Provider: Abby Aguilar, Collected: 07/23/2021 1535 PERSONAL CARE WORKER Ordering Location: [facility] Received: 07/23/2021 1535 First Screen: [place] Dunbar CT Specimen: LIQUID-BASED PAP - CERVICAL/ENDOCERV ICAL, Cervix, Endocervical 07/25/2021 9:26 AM EST [facility] PAP FINAL DIAGNOSIS Negative for intraepithelial lesion or malignancy 07/25/2021 9:26 AM EST [facility] at 0926 EST MICROSCOPIC DESCRIPTION Microscopic examination is performed and the findings corroborate the diagnosis. 07/25/2021 9:26 AM EST [facility] PAP SMEAR ADEQUACY Satisfactory for evaluation 07/25/2021 9:26 AM EST [facility] PAP ORGANISMS NOTED Abundant bacteria present. 07/25/2021 9:26 AM EST [facility] ENDOCERVICAL T-ZONE Transformation zone present 07/25/2021 9:26 AM EST [facility] EMBEDDED IMAGES 9:26 AM EST [facility] PAP DISCLAIMER The Pap Smear is a screening test that aids in the detection of cervical cancer and cancer precursors. Both false positive and false negative results can occur. The test should be used at regular intervals, and positive results should be confirmed before definitive therapy. Processed using the ThinPrep Storeroom Keeper Automated cytology screening device ([employer]). 07/25/2021 9:26 AM EST [facility] Thin Prep ENDOCERVICAL STRUCTURE / Unknown 07/23/2021 3:35 PM EST 07/23/2021 3:35 PM EST Abby Aguilar PERSONAL CARE WORKER CYTOLOGY ORDERABLES [place] [address] from Last 3 Months or Most Recently Relevant to Health Maintenance Insurance [address] T[place] [address] [address] [facility] [address] [address] ANTHONY [address] [address] Advance Directives For more information, please contact: [phone] * Full Code (Latest Code Status on File) Date Activated Date Inactivated Comments 02/05/2022 10:00 PM 02/10/2022 5:14 PM
== END 2025-01-25 23:59 | disposition home or self-care (01) ==
LOC: LAB.DROPOF 01-26 13:28
PROVIDERS: PCP Obstetrics & Gynecology; Visit Provider Obstetrics & Gynecology
DX: E66.9 Obesity, unspecified (principal); O24.410 Gestational diabetes mellitus in pregnancy, diet controlled; Z3A.34 34 weeks gestation of pregnancy
CPT/HCPCS: 86403

== ENCOUNTER 2025-02-04 16:34 | Outpatient (CLI) | payer OTHER, SELFPAY ==
--- OUTSIDE RECORDS SUMMARY | 2024-12-07 12:37 | XMS_ITS | Encounter Summary ---
Author Organization [facility] Address [address] [place] [address] Care Team Providers Care Supervisor Frame Sample And Pattern Name Role Phone Donaldo Morgan MD Primary Care Provider [phone] Reason for Referral * Diagnostic Imaging (Routine) - Closed Specialty Diagnoses / Procedures Referred By Contac t Referred To Contact Radiology Diagnoses Diet controlled gestational diabetes mellitus (GDM) in third trimester Procedures [facility] [place] Katie Loo MD [address] [place], [place] [id number] Phone: tel: fax: [facility] US PER DIAG CTR [address] [place] [address] Phone: tel: Referral ID Status Reason Start Date Expiration Date Visits Re quested Visits Authorized [id number] Closed 11/30/2024 03/01/2026 1 1 Reason for Visit * Diagnostic Imaging (Routine) - Closed Specialty Diagnoses / Procedures Referred By Contac t Referred To Contact Radiology Diagnoses Diet controlled gestational diabetes mellitus (GDM) in third trimester Procedures [facility] [place] Katie Loo MD [address] [place] [address] Phone: tel: fax: [facility] US PER DIAG CTR [address] [place] [address] Phone: tel: Referral ID Status Reason Start Date Expiration Date Visits Re quested Visits Authorized [id number] Closed 11/30/2024 03/01/2026 1 1 Encounter Details Date Type Department Care Team (Latest Contact Info) Description 12/07/2024 12:37 PM EDT - 12/07/2024 11:59 PM EDT Hospital Encounter [facility] PER DIAG CTR [address] [place] [address] Katie Loo MD [address] [facility] [address] [place] [address] Diet controlled gestational diabetes mellitus (GDM) in third trimester Discharge Disposition: Home or Self Care Social History Tobacco Use Types Packs/Day Years Used Date Smoking Tobacco: Never Smokeless Tobacco: Never Alcohol Use Standard Drinks/Week Comments Not Currently 0 (1 standard drink = 0.6 oz pur e alcohol) Estimated Date of Delivery Comme nts Yes 02/18/2025 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 10/30/2024 Blood Glucose Monitoring Suppl (OneTouch Verio Flex System) w/Device kit CHECK GLUCOSE FOUR TIMES DAILY FASTING AND 2 HOURS AFTER EACH MEAL 11/24/2024 FeroSul 325 (65 Fe) MG tablet Take 1 tablet by mouth Daily. 10/30/2024 Lancets (VivaSmartTouch Delica Plus [id number]) misc USE TO TEST BLOOD SUGAR FOUR TIMES DAILY FASTING AND 2 HOURS AFTER EACH MEAL 11/24/2024 OneTouch Verio test strip USE TO TEST BLOOD SUGAR FOUR TIMES DAILY FASTING AND 2 HOURS AFTER EACH MEAL 11/24/2024 vitamin (, CLASSIC, vitamin) tablet Take by mouth Daily. documented as of this encounter Plan of Treatment Not on file documented as of this encounter Procedures Procedure Name Priority Date/Time Associated Diagnosis Comments [facility] Routine 12/07/2024 1:24 PM EDT Diet controlled gestational diabetes mellitus (GDM) in third trimester documented in this encounter Results * [facility] (12/07/2024 1:24 PM EDT) Anatomical Region Laterality Modality Ultrasound 12/07/2024 1:01 PM EDT Narrative 12/07/2024 1:48 PM EDT PAT NAME: CARLOS BANG MED REC#: [id number] DA: [id number] PAT GEND: F PAT TYPE: O EXAM ANAYELI: [id number] REF PHYS KATIE LOO Comparison Studies The findings of this study are compared to the prior ultrasound study dated 11/09/24 Patient Status Outpatient Indication ======== Concern for EIF. Hx GDM. Previous c/s x 1. Obesity Maternal Assessment Height 153 cm Height (ft) 5 ft Height (in) 0 in Weight 91 kg Weight (lb) 201 lb BMI 38.87 kg/m Method ======= Transabdominal ultrasound examination. View: Adequate view ========= Ariza . Number of fetuses: 1 Dating ====== GA by prior assessment 29 w + 4 d IVETT by prior assessment: 02/18/2025 Ultrasound examination on: 12/07/2024 GA by U/S based upon: AC, BPD, Femur, HC GA by U/S 31 w + 1 d IVETT by U/S: 02/07/2025 Method of dating: Restore dating from previous exam Previous dating: based on stated IVETT, selected on 11/09/2024 Agreed IVETT of previous datin02/18/2025 Assigned: based on stated IVETT, selected on 11/09/2024 Assigned GA 29 w + 4 d Assigned IVETT: 02/18/2025 length 280 d Biometry Standard BPD 80.3 mm 32w 2d 97% Hadlock OFD 96.5 mm 31w 1d 87% Onur HC 282.3 mm 31w 0d 57% Hadlock Cerebellum tr 36.5 mm 30w 1d 65% Hill AC 270.5 mm 31w 1d 86% Hadlock Femur 58.0 mm 30w 2d 57% Hadlock HC / AC 1.04 EFW 1,672 g 30w 4d 83% Hadlock EFW (lb) 3 lb EFW (oz) 11 oz EFW by: Hadlock (AFM-XI-GB-FL) Extended Cav. septi pel. tr 7.7 mm Telegraph Service Rater 7.1 mm CM 6.9 mm 50% Nicolaides Head / Face / Neck Cephalic index 0.83 87% Nicolaides Extremities / Bony Struc FL / BPD 0.72 FL / HC 0.21 FL / AC 0.21 Other Structures FHR 159 bpm General Evaluation Cardiac activity present. FHR 159 bpm. movements present. Presentation cephalic. Placenta Placental site: posterior. Umbilical cord Cord vessels: 3 vessel cord. Amniotic fluid Amount of AF: normal. MVP 6.7 cm. DAVID 22.6 cm. Q1 4.6 cm, Q2 6.7 cm, Q3 6.1 cm, Q4 5.3 cm. Anatomy Cranium: Normal Cavum septi pellucidi: Normal Cerebellum: Normal Cisterna magna: Normal Head / Neck Rt lateral ventricle: Normal Lt lateral ventricle: Normal Lips: Normal Profile: Normal Nose: Normal 4-chamber view: Appears normal RVOT view: Normal LVOT view: Normal Heart / Thorax 3-vessel view: Normal 1-uufvcy-lsawseh view: normal Cord insertion: Normal Stomach: Appears normal Kidneys: Appears normal Bladder: Appears normal Gender: male Wants to know gender: yes Doppler Arterial Umbilical A PI 1.06 68% Ash Umbilical A RI 0.67 64% Ash Umbilical A PS -41.19 cm/s Umbilical A ED -13.43 cm/s Umbilical A TAmax -26.09 cm/s Umbilical A MD -12.88 cm/s Umbilical A S / D 3.07 60% Ash Umbilical A HR 134 bpm Consultation / Office Visit Office note to follow Impression ========= Size consistent with dates but trending towards macrosomia. No anomalies were identified. Amniotic fluid volume is normal. Umbilical artery S/D ratio is normal. Patient counseled re movement. Recommendation We recommend evaluation in 4 weeks. Follow up appointment scheduled here in 4 weeks. Recommend twice weekly testing starting at 32 weeks gestation. We will review patient's sugars weekly. Coding ====== Description: 82360-97 Follow Up Distribution Field Engineer: Beverly Arce RDMS Physician: Brijesh Champion MD, FACOG Electronically signed by: Brijesh Champion MD, FACOG at: 13:48 Procedure Note Suhail Champion MD - 12/07/2024 PAT NAME: CARLOS BANG MED REC#: [id number] DA: [id number] PAT GEND: F PAT TYPE: O EXAM ANAYELI: [id number] REF PHYS KATIE LOO Comparison Studies The findings of this study are compared to the prior ultrasound studydated 11/09/24 Patient Status Outpatient Indication ======== Concern for EIF. Hx GDM. Previous c/s x 1. Obesity Maternal Assessment [id number] cm Height (ft)5 ft Height (in)0 in Mmgltx51 kg Weight (lb)201 lb BMI38.87 kg/m Method ======= Transabdominal ultrasound examination. View: Adequate view ========= Ariza . Number of fetuses: 1 Dating ====== GA by prior [id number] w + 4 d IVETT by prior assessment:02/18/2025 Ultrasound examination on:12/07/2024 GA by U/S based upon:AC, BPD, Femur, HC GA by U/S31 w + 1 d IVETT by U/S:02/07/2025 Method of dating:Restore dating from previous exam Previous dating:based on stated IVETT, selected on 11/09/2024 Agreed IVETT of previous datin02/18/2025 Assigned:based on stated IVETT, selected on 11/09/2024 Assigned GA29 w + 4 d Assigned IVETT:02/18/2025 [id number] d Biometry Standard BPD80.3 mm 32w 2d 97% Hadlock OFD96.5 mm 31w 1d 87% Onur HC282.3 mm 31w 0d 57% Hadlock Cerebellum tr36.5 mm 30w 1d 65% Hill AC270.5 mm 31w 1d 86% Hadlock Femur58.0 mm 30w 2d 57% Hadlock HC / AC1.04 EFW1,672 g 30w 4d 83% Hadlock EFW (lb)3 lb EFW (oz)11 oz EFW by:Hadlock (TGD-QL-RQ-FL) Extended Cav. septi pel. tr7.7 mm Vp7.1 mm CM6.9 mm 50% Nicolaides Head / Face / Neck Cephalic index0.83 87% Nicolaides Extremities / Bony Struc FL / BPD0.72 FL / HC0.21 FL / AC0.21 Other Structures SKC673 bpm General Evaluation Cardiac activity present. FHR 159 bpm. movements present. Presentation cephalic. Placenta Placental site: posterior. Umbilical cord Cord vessels: 3 vessel cord. Amniotic fluid Amount of AF: normal. MVP 6.7 cm. DAVID 22.6 cm. Q1 4.6 cm,Q2 6.7 cm, Q3 6.1 cm, Q4 5.3 cm. Anatomy Cranium:Normal Cavum septi pellucidi:Normal Cerebellum:Normal Cisterna magna:Normal Head / Neck Rt lateral ventricle:Normal Lt lateral ventricle:Normal Lips:Normal Profile:Normal Nose:Normal 4-chamber view:Appears normal RVOT view:Normal LVOT view:Normal Heart / Thorax 3-vessel view:Normal 5-voqton-qyffcsu view:normal Cord insertion:Normal Stomach:Appears normal Kidneys:Appears normal Bladder:Appears normal Gender:male Wants to know gender:yes Doppler Arterial Umbilical A PI1.06 68% Sah Umbilical A RI0.67 64% Ash Umbilical A PS-41.19 cm/s Umbilical A ED-13.43 cm/s Umbilical A TAmax-26.09 cm/s Umbilical A MD-12.88 cm/s Umbilical A S / D3.07 60% Ash Umbilical A HR134 bpm Consultation / Office Visit Office note to follow Impression ========= Size consistent with dates but trending towards macrosomia. No anomalies were identified. Amniotic fluid volume is normal. Umbilical artery S/D ratio is normal. Patient counseled re movement. Recommendation We recommend evaluation in 4 weeks. Follow up appointment scheduled here in 4 weeks. Recommend twice weekly testing starting at 32 weeks gestation. We will review patient's sugars weekly. Coding ====== Description:50914-53 Follow Up Distribution Field Engineer: Beverly Arce RDFL Physician: Brijesh Champion MD, FACOG Electronically signed by: Brijesh Champion MD, FACOG at: 13:48 us Katie Loo MD IMG US ORDERABLES Final Resul t documented in this encounter Visit Diagnoses Diagnosis Diet controlled gestational diabetes mellitus (GDM) in third trimester documented in this encounter Care Teams Supervisor Frame Sample And Pattern Relationship Specialty Start Date End Date Donaldo Morgan MD [address] [facility] [address] [place] [address] PCP - General Family Medicine 11/09/24 documented as of this encounter
--- OUTSIDE RECORDS SUMMARY | 2024-12-07 13:15 | XMS_ITS | Encounter Summary ---
Author Organization [facility] Address [address] [place] [address] Care Team Providers Care Operations Executive Name Role Phone Donaldo Morgan MD Primary Care Provider +1 [phone] Reason for Referral * Diagnostic Imaging (Routine) - Closed Specialty Diagnoses / Procedures Referred By Contac t Referred To Contact Radiology Diagnoses Gestational diabetes mellitus (GDM) in third trimester controlled on oral hypoglycemic drug Family history of congenital heart defect Echogenic focus of heart of fetus affecting antepartum care of mother, single or unspecified fetus , unspecified gestational age Procedures [facility] Suhail Champion MD [address] [facility] [address] [place] [address] Phone: tel: fax: Referral ID Status Reason Start Date Expiration Date Visits Re quested Visits Authorized [id number] Closed 12/07/2024 03/08/2026 1 1 Reason for Visit * Reason Comments GDM; Prev c/s x1 Encounter Details Date Type Department Care Team (Late st Contact Info) Description 12/07/2024 1:15 PM EDT Office Visit [facility] MATERNAL MEDICINE [address] [facility] [address] [place] [address] Suhail Champion MD [facility] [facility] [address] [place] [address] Gestational diabetes mellitus (GDM) in third trimester [...] ifshe notices any decreased movement. Orders: - [facility]; Future 2. Family history of congenital heart defect - [facility]; Future 3. Echogenic focus of heart of fetus affecting antepartum care of mother, single or unspecified fetus - [facility]; Future 4. , unspecified gestational age - [facility]; Future Follow Up Return in [...] or CVS. Suhail Champion MD Maternal Medicine, [facility] [place] 12/07/2024 documented in this encounter Plan of Treatment Not on file documented as of this encounter Results * [facility] (01/04/2025 2:48 PM EDT) Anatomical Region Laterality Modality Ultrasound 01/04/2025 2:21 PM EDT Narrative 01/07/2025 9:37 PM EDT PAT NAME: CARLOS BANG MED REC#: [id number] DA: 2000 PAT GEND: F PAT TYPE: O EXAM ANAYELI: [id number] REF PHYS KATIE LOO Comparison Studies The [...] EFW (oz) 8 oz EFW by: Hadlock (DIF-ZO-QG-FL) Extended Cav. septi pel. tr 6.2 mm Rn Transplant 7.4 mm CM 9.0 mm 86% Nicolaides [...] view: Appears normal 3-vessel view: Appears normal 6-fvecjq-zmeyeud view: Appears normal Cord insertion: Normal Stomach: [...] Follow up 4 weeks Coding ====== Description: 63579-50 Follow Up Ultrasound Description: BPP without NST Manager Heart Failure: RT Rox Rankin , [facility] Physician: Subha Valenzuela MD, FACOG Electronically signed by: Subha Valenzuela MD, FACOG at: 21:37 Procedure Note Subha Valenzuela MD - 01/07/2025 PAT NAME: CARLOS BANG MED REC#: [id number] DA: [id number] PAT GEND: F PAT TYPE: O EXAM ANAYELI: [id number] REF PHYS KATIE LOO Comparison Studies The findings of this study are compared to the prior ultrasound studydated 12/07/24 Patient Status Outpatient Indication ======== GDM. Previous c/s x 1. Obesity BMI 38. Maternal Assessment Ssemzp456 cm Height (ft)5 ft Height (in)0 in Qqfwil10 kg Weight (lb)196 lb BMI37.98 kg/m Method ======= Transabdominal ultrasound examination. View: Good view ========= Ariza . Number of fetuses: 1 Dating ====== Method of dating:based on stated IVETT GA by prior [id number] w + 4 d IVETT by prior assessment:02/18/2025 Ultrasound examination on:01/04/2025 GA by U/S based upon:AC, BPD, Femur, HC GA by U/S35 w + 1 d IVETT by U/S:02/07/2025 Previous dating:based on stated IVETT, selected on 11/09/2024 Agreed IVETT of previous datin02/18/2025 Assigned:based on stated IVETT, selected on 01/04/2025 Assigned GA33 w + 4 d Assigned IVETT:02/18/2025 [id number] d Biometry Standard BPD87.6 mm 35w 3d 90% Hadlock OHQ845.8 mm 39w 6d >99% Onur HC321.6 mm 36w 2d 82% Hadlock Cerebellum tr47.0 mm 35w 3d 73% Hill AC302.9 mm 34w 2d 72% Hadlock Femur67.4 mm 34w 5d 69% Hadlock Rahxhqn23.5 mm 34w 4d 83% Onur HC / AC1.06 EFW2,491 g 34w 4d 75% Hadlock EFW (lb)5 lb EFW (oz)8 oz EFW by:Hadlock (QKD-NW-SH-FL) Extended Cav. septi pel. tr6.2 mm Vp7.4 mm CM9.0 mm 86% Nicolaides Head / Face / Neck Cephalic index0.76 13% Nicolaides Extremities / Bony Struc FL / BPD0.77 FL / HC0.21 FL / AC0.22 Other Structures RQZ088 bpm General Evaluation Cardiac activity present. FHR [...] Ductal arch view:Appears normal 3-vessel view:Appears normal 5-vtuzes-dzwmuxh view:Appears normal Cord insertion:Normal Stomach:Appears normal Kidneys:Appears [...] Recommendation Follow up 4 weeks Coding ====== Description:41274-17 Follow Up Ultrasound Description: BPP without NST Manager Heart Failure: RT Massiel R , [facility] Physician: Subha Valenzuela MD, FACOG Electronically [...] age documented in this encounter Care Teams Operations Executive Relationship Specialty Start Date End Date Donaldo Morgan MD [address] [place] [address] [address] [place] [address] PCP - General Family Medicine 11/09/24 documented as of this encounter
--- OUTSIDE RECORDS SUMMARY | 2025-01-04 13:39 | XMS_ITS | Encounter Summary ---
Author Organization [facility] Address [address] [place] [address] Care Team Providers Care Combine Driver Name Role Phone Donaldo Morgan MD Primary Care Provider [phone] [phone] Reason for Referral * Diagnostic Imaging (Routine) - Closed Specialty Diagnoses / Procedures Referred By Contac t Referred To Contact Radiology Diagnoses Gestational diabetes mellitus (GDM) in third trimester controlled on oral hypoglycemic drug Family history of congenital heart defect Echogenic focus of heart of fetus affecting antepartum care of mother, single or unspecified fetus , unspecified gestational age Procedures [facility] Diagnostic [place] Suhail Champion MD [address] [address] Phone: tel: fax: Referral ID Status Reason Start Date Expiration Date Visits Re quested Visits Authorized [id number] Closed 12/07/2024 03/08/2026 1 1 Reason for [...] unspecified fetus , unspecified gestational age Procedures [facility] Diagnostic [place] Suhail Champion MD [address] [facility] [place] [address] Phone: tel: fax: Referral ID Status Reason Start Date Expiration Date Visits Re quested Visits Authorized [id number] Closed 12/07/2024 03/08/2026 1 1 Encounter Details Date Type Department Care Team (Late st Contact Info) Description 01/04/2025 1:39 PM EDT - 01/04/2025 11:59 PM EDT Hospital Encounter [facility] [address] [place] [phone] Suhail Champion MD [address] [facility] [address] [place], [place] [id number] Gestational diabetes mellitus (GDM) in third trimester [...] mouth Daily. 10/30/2024 Blood Glucose Monitoring Suppl (Accelauch Verio Flex System) w/Device kit CHECK GLUCOSE FOUR TIMES DAILY FASTING AND 2 HOURS AFTER EACH MEAL 11/24/2024 FeroSul 325 (65 Fe) MG tablet Take 1 tablet by mouth Daily. 10/30/2024 Lancets (ShipsterTouch Delica Plus Hiuvcn04O) misc USE TO TEST BLOOD SUGAR FOUR [...] Procedure Name Priority Date/Time Associated Diagnosis Comments [facility] Routine 01/04/2025 2:48 PM EDT Gestational diabetes mellitus (GDM) in third trimester controlled on oral hypoglycemic drug Family history of congenital heart defect Echogenic focus of heart of fetus affecting antepartum care of mother, single or unspecified fetus , unspecified gestational age documented in this encounter Results * [facility] (01/04/2025 2:48 PM EDT) Anatomical Region Laterality Modality Ultrasound 01/04/2025 2:21 PM EDT Narrative 01/07/2025 9:37 PM EDT PAT NAME: CARLOS BANG [facility] REC#: [id number] DA: [id number] PAT GEND: F PAT TYPE: O EXAM ANAYELI: [id number] REF PHYS KATIE LOO Comparison Studies The [...] EFW (oz) 8 oz EFW by: Hadlock (AOZ-GM-ME-FL) Extended Cav. septi pel. tr 6.2 mm Supervisor Metal Placing 7.4 mm CM 9.0 mm 86% Nicolaides [...] view: Appears normal 3-vessel view: Appears normal 2-gbqnso-hzshubs view: Appears normal Cord insertion: Normal Stomach: [...] Follow up 4 weeks Coding ====== Description: 53256-10 Follow Up Ultrasound Description: BPP without NST Granite Countertop Installer: RT Rox Rankin , [facility] Physician: Subha Valenzuela MD, FACOG Electronically signed by: Subha Valenzuela MD, FACOG at: 21:37 Procedure Note Subha Valenzuela MD - 01/07/2025 PAT NAME: [facility] REC#: [id number] DA: [id number] PAT GEND: F PAT TYPE: O EXAM ANAYELI: [id number] REF PHYS KATIE LOO Comparison Studies The findings of this study are compared to the prior ultrasound studydated 12/07/24 Patient Status Outpatient Indication ======== GDM. Previous c/s x 1. Obesity BMI 38. Maternal Assessment Lwcjti262 cm Height (ft)5 ft Height (in)0 in Qfxyvo66 kg Weight (lb)196 lb BMI37.98 kg/m Method ======= Transabdominal ultrasound examination. View: Good view ========= Ariza . Number of fetuses: 1 Dating ====== Method of dating:based on stated IVETT GA by prior vtixdnzlgn14 w + 4 d IVETT by prior assessment:02/18/2025 Ultrasound examination on:01/04/2025 GA by U/S based upon:AC, BPD, Femur, HC GA by U/S35 w + 1 d IVETT by U/S:02/07/2025 Previous dating:based on stated IVETT, selected on 11/09/2024 Agreed IVETT of previous datin02/18/2025 Assigned:based on stated IVETT, selected on 01/04/2025 Assigned GA33 w + 4 d Assigned IVETT:02/18/2025 obmziz146 d Biometry Standard BPD87.6 mm 35w 3d 90% Hadlock WMX728.8 mm 39w 6d >99% Onur HC321.6 mm 36w 2d 82% Hadlock Cerebellum tr47.0 mm 35w 3d 73% Hill AC302.9 mm 34w 2d 72% Hadlock Femur67.4 mm 34w 5d 69% Hadlock Fshpzcw56.5 mm 34w 4d 83% Onur HC / AC1.06 EFW2,491 g 34w 4d 75% Hadlock EFW (lb)5 lb EFW (oz)8 oz EFW by:Hadlock (RZQ-PP-FT-FL) Extended Cav. septi pel. tr6.2 mm Vp7.4 mm CM9.0 mm 86% Nicolaides Head / Face / Neck Cephalic index0.76 13% Nicolaides Extremities / Bony Struc FL / BPD0.77 FL / HC0.21 FL / AC0.22 Other Structures WID947 bpm General Evaluation Cardiac activity present. FHR [...] Ductal arch view:Appears normal 3-vessel view:Appears normal 6-pnpklt-sbogbea view:Appears normal Cord insertion:Normal Stomach:Appears normal Kidneys:Appears [...] Recommendation Follow up 4 weeks Coding ====== Description:49295-33 Follow Up Ultrasound Description:99779-31 BPP without NST Granite Countertop Installer: RT Rox Rankin , [facility] Physician: Subha Valenzuela MD, FACOG Electronically [...] age documented in this encounter Care Teams Combine Driver Relationship Specialty Start Date End Date Donaldo Morgan MD [address] [facility] [address] [place] [address] PCP - General Family Medicine 11/09/24 documented as of this encounter
--- OUTSIDE RECORDS SUMMARY | 2025-01-04 14:15 | XMS_ITS | Encounter Summary ---
Author Organization [facility] Address [address] [place] [address] Care Team Providers Care Metal Ceiling Builder Name Role Phone Donaldo Morgan MD Primary Care Provider +1 [phone] Reason for Referral * Diagnostic Imaging (Routine) - Closed Specialty Diagnoses / Procedures Referred By Contac t Referred To Contact Radiology Diagnoses Gestational diabetes mellitus (GDM) in third trimester controlled on oral hypoglycemic drug Procedures [facility] Subha Valenzuela MD [address] [facility] [address] [place] [address] Phone: tel: fax: [facility] US PER DIAG CTR [address] [place] [address] Phone: tel: Referral ID Status Reason Start Date Expiration Date Visits Re quested Visits Authorized [id number] Closed 01/07/2025 04/08/2026 1 1 Reason for Visit * Reason Comments GDM; prev. c/s x1; obesity Encounter Details Date Type Department Care Team (Late st Contact Info) Description 01/04/2025 2:15 PM EDT Office Visit [facility] MATERNAL MEDICINE [address] [facility] [address] [place] [address] Subha Valenzuela MD [address] [facility] [address] [place] [address] Gestational diabetes mellitus (GDM) in third [...] under imaging tab of patient chart in [facility] (Viewpoint report). Subha Valenzuela MD documented in this encounter Plan of Treatment Not on file documented as of this encounter Results * [facility] (02/01/2025 2:27 PM EDT) Anatomical Region Laterality Modality Ultrasound 02/01/2025 2:04 PM EDT Narrative 02/01/2025 2:40 PM EDT PAT NAME: CARLOS BANG MED REC#: [id number] DA: 2000 PAT GEND: F PAT TYPE: O EXAM ANAYELI: [id number] REF PHYS KATIE LOO Comparison Studies The [...] EFW (oz) 9 oz EFW by: Hadlock (WGO-BN-QJ-FL) Extended Cav. septi pel. tr 6.6 mm Racing Secretary And Handicapper 8.9 mm Head / Face / Neck [...] Heart / Thorax 3-vessel view: Appears normal 1-cxuuda-rodqjxy view: Appears normal Cord insertion: Normal Stomach: [...] at 37 weeks gestation. Coding ====== Description: 65167-29 Follow Up Ultrasound Description: 67804-67 BPP without NST [place] Carpenter: Yuli Euceda RT R , [facility] Physician: Brijesh Champion MD, FACOG Electronically signed by: Brijesh Champion MD, FACOG at: 14:40 Procedure Note Suhail Champion MD - 02/01/2025 PAT NAME: CARLOS BANG MED REC#: [id number] DA: [id number] PAT GEND: F PAT TYPE: O EXAM ANAYELI: [id number] REF PHYS KATIE LOO Comparison Studies The findings of this study are compared to the prior ultrasound studydated 01/04/25 Patient Status Outpatient Indication ======== GDM. Previous c/s x 1. Obesity BMI 38. Maternal Assessment Dhetxl873 cm Height (ft)5 ft Height (in)0 in Cvpnid53 kg Weight (lb)195 lb BMI37.79 kg/m Method ======= Transabdominal ultrasound examination. View: Good view ========= Ariza . Number of fetuses: 1 Dating ====== Method of dating:based on stated IVETT GA by prior anvjyqjgmt44 w + 4 d IVETT by prior assessment:02/18/2025 Ultrasound examination on:02/01/2025 GA by U/S based upon:AC, BPD, Femur, HC GA by U/S37 w + 6 d IVETT by U/S:02/16/2025 Previous dating:based on stated IVETT, selected on 01/04/2025 Agreed IVETT of previous datin02/18/2025 Assigned:based on stated IVETT, selected on 02/01/2025 Assigned GA37 w + 4 d Assigned IVETT:02/18/2025 vnooul211 d Biometry Standard BPD91.2 mm 37w 0d 54% Hadlock DVE978.8 mm -/- 84% Onur HC331.9 mm 37w 6d 33% Hadlock AC348.0 mm 38w 5d 90% Hadlock Femur73.8 mm 37w 5d 56% Hadlock Jizcxfo69.6 mm 38w 0d 89% Onur HC / AC0.95 EFW3,419 g 38w 6d 74% Hadlock EFW (lb)7 lb EFW (oz)9 oz EFW by:Hadlock (CIL-YA-RP-FL) Extended Cav. septi pel. tr6.6 mm Vp8.9 mm Head / Face / Neck Cephalic index0.79 18% Nicolaides Extremities / Bony Struc FL / BPD0.81 FL / HC0.22 FL / AC0.21 Other Structures ACX193 bpm General Evaluation Cardiac activity present. FHR [...] normal Heart / Thorax 3-vessel view:Appears normal 5-hgzkyj-kzcnvsq view:Appears normal Cord insertion:Normal Stomach:Appears normal Kidneys:Appears [...] delivery at 37 weeks gestation. Coding ====== Description:46711-75 Follow Up Ultrasound Description:30438-78 BPP without NST [place] Carpenter: RT Rox Rankin , [facility] Physician: Brijesh Champion MD, FACOG Electronically signed by: Brijesh Champion MD, FACOG at: 14:40 us Subha aVlenzuela MD IMG US ORDERABLES Final Result documented in this encounter Visit Diagnoses Diagnosis Gestational diabetes mellitus (GDM) in third trimester controlled on oral hypoglycemic drug- Primary Gestational diabetes mellitus (GDM) in third trimester controlled on oral hypoglycemic drug documented in this encounter Care Teams Metal Ceiling Builder Relationship Specialty Start Date End Date Donaldo Morgan MD [facility] [address] [facility] [address] [place] [address] PCP - General Family Medicine 11/09/24 documented as of this encounter
--- OUTSIDE RECORDS SUMMARY | 2025-02-01 13:54 | XMS_ITS | Encounter Summary ---
Author Organization [facility] Address [address] [place] [address] Care Team Providers Care Media Liaison Officer Name Role Phone Donaldo Morgan MD Primary Care Provider [phone] [phone] Reason for Referral * Diagnostic Imaging (Routine) - Closed Specialty Diagnoses / Procedures Referred By Contac t Referred To Contact Radiology Diagnoses Gestational diabetes mellitus (GDM) in third trimester controlled on oral hypoglycemic drug Procedures [facility] Diagnostic [place] Subha Valenzuela MD [address] [place] [address] Phone: tel: fax: [facility] US PER DIAG CTR [address] [place] [address] Phone: tel: Referral ID Status Reason Start Date Expiration Date Visits Re quested Visits Authorized [id number] Closed 01/07/2025 04/08/2026 1 1 Reason for Visit * Diagnostic Imaging (Routine) - Closed Specialty Diagnoses / Procedures Referred By Contac t Referred To Contact Radiology Diagnoses Gestational diabetes mellitus (GDM) in third trimester controlled on oral hypoglycemic drug Procedures [facility] Subha Valenzuela MD [address] [place] [address] [address] Phone: tel: fax: [facility] US PER DIAG CTR [address] [place] [address] Phone: tel: Referral ID Status Reason Start Date Expiration Date Visits Re quested Visits Authorized [id number] Closed 01/07/2025 04/08/2026 1 1 Encounter Details Date Type Department Care Team (Latest Contact Info) Description 02/01/2025 1:54 PM EDT - 02/01/2025 11:59 PM EDT Hospital Encounter [facility] PER DIAG CTR [address] [place] [address] Gestational diabetes mellitus (GDM) in third trimester [...] 1 tablet by mouth Daily. 10/30/2024 Lancets ([employer]ure Islands TechnologiesTouch Delica Plus Xpspct58Q) misc USE TO TEST BLOOD SUGAR FOUR [...] Procedure Name Priority Date/Time Associated Diagnosis Comments [facility] Routine 02/01/2025 2:27 PM EDT Gestational diabetes mellitus (GDM) in third trimester controlled on oral hypoglycemic drug documented in this encounter Results * [facility] (02/01/2025 2:27 PM EDT) Anatomical Region Laterality Modality Ultrasound 02/01/2025 2:04 PM EDT Narrative 02/01/2025 2:40 PM EDT PAT NAME: CARLOS BANG MED REC#: [id number] DA: 2000 PAT GEND: F PAT TYPE: O EXAM ANAYELI: [id number] REF PHYS KATIE LOO Comparison Studies The [...] EFW (oz) 9 oz EFW by: Hadlock (UKU-NC-KM-FL) Extended Cav. septi pel. tr 6.6 mm Back Line Cook 8.9 mm Head / Face / Neck [...] Heart / Thorax 3-vessel view: Appears normal 3-hjtvfe-mqbbuyr view: Appears normal Cord insertion: Normal Stomach: [...] at 37 weeks gestation. Coding ====== Description: 19499-78 Follow Up Ultrasound Description: 59472-62 BPP without NST Traffic Investigator: Yuli Euceda RT R , [facility] Physician: Brijesh Champion MD, FACOG Electronically signed by: Brijesh Champion MD, FACOG at: 14:40 Procedure Note Suhail Champion MD - 02/01/2025 PAT NAME: CARLOS BANG MED REC#: [id number] DA: [id number] PAT GEND: F PAT TYPE: O EXAM ANAYELI: [id number] REF PHYS KATIE LOO Comparison Studies The findings of this study are compared to the prior ultrasound studydated 01/04/25 Patient Status Outpatient Indication ======== GDM. Previous c/s x 1. Obesity BMI 38. Maternal Assessment Zngmhi354 cm Height (ft)5 ft Height (in)0 in Xgwzco95 kg Weight (lb)195 lb BMI37.79 kg/m Method ======= Transabdominal ultrasound examination. View: Good view ========= Ariza . Number of fetuses: 1 Dating ====== Method of dating:based on stated IVETT GA by prior zvsjkrbjaz76 w + 4 d IVETT by prior assessment:02/18/2025 Ultrasound examination on:02/01/2025 GA by U/S based upon:AC, BPD, Femur, HC GA by U/S37 w + 6 d IVETT by U/S:02/16/2025 Previous dating:based on stated IVETT, selected on 01/04/2025 Agreed IVETT of previous datin02/18/2025 Assigned:based on stated IVETT, selected on 02/01/2025 Assigned GA37 w + 4 d Assigned IVETT:02/18/2025 zkkieb864 d Biometry Standard BPD91.2 mm 37w 0d 54% Hadlock TKI584.8 mm -/- 84% Onur HC331.9 mm 37w 6d 33% Hadlock AC348.0 mm 38w 5d 90% Hadlock Femur73.8 mm 37w 5d 56% Hadlock Mlqjipy19.6 mm 38w 0d 89% Onur HC / AC0.95 EFW3,419 g 38w 6d 74% Hadlock EFW (lb)7 lb EFW (oz)9 oz EFW by:Hadlock (CRW-EB-SO-FL) Extended Cav. septi pel. tr6.6 mm Vp8.9 mm Head / Face / Neck Cephalic index0.79 18% Nicolaides Extremities / Bony Struc FL / BPD0.81 FL / HC0.22 FL / AC0.21 Other Structures BFL596 bpm General Evaluation Cardiac activity present. FHR [...] normal Heart / Thorax 3-vessel view:Appears normal 4-lvprpo-ildvrka view:Appears normal Cord insertion:Normal Stomach:Appears normal Kidneys:Appears [...] delivery at 37 weeks gestation. Coding ====== Description:75682-79 Follow Up Ultrasound Description:91860-73 BPP without NST Traffic Investigator: RT Massiel R , [facility] Physician: Brijesh Champion MD, FACOG Electronically signed by: Brijesh Champion MD, FACOG at: 14:40 us Subha Valenzuela MD IMG US ORDERABLES Final Result documented in this encounter Visit Diagnoses Diagnosis Gestational diabetes mellitus (GDM) in third trimester controlled on oral hypoglycemic drug documented in this encounter Care Teams Media Liaison Officer Relationship Specialty Start Date End Date Donaldo Morgan MD [address] [facility] [address] [place] [address] PCP - General Family Medicine 11/09/24 documented as of this encounter
--- OUTSIDE RECORDS SUMMARY | 2025-02-01 14:15 | XMS_ITS | Encounter Summary ---
Author Organization [facility] Address [address] [place] [address] Care Team Providers Care Hydro Station Supervisor Name Role Phone Donaldo Morgan MD Primary Care Provider +1 [phone] Reason for Visit * Reason Comments GDM; prev. c/s Encounter Details Date Type Department Care Team (Late st Contact Info) Description 02/01/2025 2:15 PM EDT Office Visit [facility] MATERNAL MEDICINE [address] [facility] [address] [place], [place] [address] Suhail Champion MD [address] [facility] [address] [place] [address] , unspecified gestational age (Primary Dx); Diet controlled gestational diabetes mellitus (GDM) in third trimester Social History Tobacco Use Types Packs/Day Years [...] Sign Reading Time Taken Comments Blood Pressure 106/53 02/01/2025 1:59 PM EDT Pulse - - Temperature - - Respiratory Rate - - Oxygen Saturation - - Inhaled Oxygen Concentration - - Weight 88.8 kg (195 lb 12.8 oz) 02/01/2025 1:59 PM EDT Height - - Body Mass Index 37.61 11/09/2024 12:54 PM EDT documented in this encounter Progress Notes * Suhail Champion MD - 02/01/2025 2:24 PM EDTAssociated Problem(s): Diet controlled gestational diabetes mellitus (GDM) in third trimester Patient returns today for follow-up of her complicated by gestational diabetes mellitus. Patient has not been sending her glucose logs to us. We have attempted to contact her several times but have been in successful as she has not been responding to messages in her TripOvationt. By patient report her glucoses are going well with her fastings being in the 70s to 80s and postprandials under 120. Patient notes no complications since her last visit. She reports that testing has begun at her doctor's office. She notes good movement. Ultrasound today demonstrates a fetus with overall growth at 75th percentile and abdominal circumference at nearly the 90th percentile. Amniotic fluid volume and umbilical artery Dopplers are normal.BPP is 8 out of 8. Patient by her report is doing well with controlling her diabetes by diet alone. As we have no datato the contrary we would not make any changes. We would continue testing until delivery. If no other complications arise we would recommend delivery at 39 weeks gestation. We have not scheduled the patient back to see us but would be happy to do so if needed. Patient was counseled extensively regarding movement will contact her provider immediately ifshe notices any decreased movement. * Niesha Monteiro RN - 02/01/2025 2:15 PM EDT Patient denies any leaking of fluid or vaginal bleeding. She reports irregular contractions. NIPT declined. Patient reports she does not have a follow-up appointment with Dr. Cedeno's office. She is scheduledfor a c/s on 02/08. * Suhail Champion MD - 02/01/2025 2:15 PM EDT Images from the original note were not included. Documentation of the ultrasound findings, images, and interpretations will be available in the patient's Viewpoint report which is located in the imaging tab in chart review. Maternal/ Medicine Follow Up Note Name: Carlos Bang : 2000 Referring Provider: Xavier Black MD Chief Complaint GDM; prev. c/s Subjective History of Present Illness: Carlos Bang is a 24 y.o. 37w4d who presents today for GDM IVETT: Estimated Date of Delivery: 02/18/25 ROS: As noted in HPI. Objective Vital Signs BP 106/53 Wt 88.8 kg (195 lb 12.8 oz) Estimated body mass index is 37.61 kg/m?? as calculated from the following: Height as of 11/09/24: 153.7 cm (60.5 ). Weight as of this encounter: 88.8 kg (195 lb 12.8 oz). Physical Exam Ultrasound Impression: See Viewpoint Assessment and Plan Carlos Bang is a 24 y.o. 37w4d who presents today for GDM Diagnoses and all orders for this visit: 1. , unspecified gestational age (Primary) 2. Diet controlled gestational diabetes mellitus (GDM) in third trimester Assessment & Plan: Patient returns today for follow-up of her complicated by gestational diabetes mellitus. Patient has not been sending her glucose logs to us. We have attempted to contact her several times but have been in successful as she has not been responding to messages in her TripOvationt. By patient report her glucoses are going well with her fastings being in the 70s to 80s and postprandials under 120. Patient notes no complications since her last visit. She reports that testing has begun at her doctor's office. She notes good movement. Ultrasound today demonstrates a fetus with overall growth at 75th percentile and abdominal circumference at nearly the 90th percentile. Amniotic fluid volume and umbilical artery Dopplers are normal.BPP is 8 out of 8. Patient by her report is doing well with controlling her diabetes by diet alone. As we have no datato the contrary we would not make any changes. We would continue testing until delivery. If no other complications arise we would recommend delivery at 39 weeks gestation. We have not scheduled the patient back to see us but would be happy to do so if needed. Patient was counseled extensively regarding movement will contact her provider immediately ifshe notices any decreased movement. Follow Up No follow-ups on file. I spent 15 minutes caring for the [...] or [facility]. Suhail Champion MD Maternal Medicine, [facility] Diagnostic [place] 02/01/2025 documented in this encounter Plan of Treatment Not on file documented as of this encounter Visit Diagnoses Diagnosis , unspecified gestational age- Primary Diet controlled gestational diabetes mellitus (GDM) in third trimester documented in this encounter Care Teams Hydro Station Supervisor Relationship Specialty Start Date End Date Donaldo Morgan MD [facility] [address] [place] [address] PCP - General Family Medicine 11/09/24 documented as of this encounter
--- OUTSIDE RECORDS SUMMARY | 2025-02-04 16:37 | XMS_ITS | Encounter Summary ---
Author Organization [facility] Address [address] [place] [address] Care Team Providers Care Tear Down Matcher Name Role Phone Donaldo Morgan MD Primary Care Provider +1 [phone] Encounter Details Date Type Department Care Team (Latest Contact Info) Description 01/04/2025 Travel Social History Tobacco Use Types Packs/Day Years [...] on file documented as of this encounter Plan of Treatment Not on file documented as of this encounter Visit Diagnoses Not on filedocumented in this encounter Care Teams Tear Down Matcher Relationship Specialty Start Date End Date Donaldo Morgan MD [address] [facility] [address] [place] [address] PCP - General Family Medicine 11/09/24 documented as of this encounter
--- OUTSIDE RECORDS SUMMARY | 2025-02-04 16:37 | XMS_ITS | Encounter Summary ---
Author Organization [facility] Address [address] [place] [address] Care Team Providers Care Anaesthesiologist Name Role Phone Donaldo Morgan MD Primary Care Provider +1 [phone] Reason for Visit * Reason Onset Date Comments Med Management 01/17/2025 Encounter Details Date Type Department Care Team (Late st Contact Info) Description 01/17/2025 Telephone [facility] MATERNAL MEDICINE [address] [facility] [address] [place] [address] Mamta Gomez, RN Med Management Social History Tobacco Use Types Packs/Day Years [...] on file documented as of this encounter Miscellaneous Notes * Telephone Encounter - Mamta Gomez RN - 01/17/2025 11:11 AM EDT LM for pt to check Fooda message documented in this encounter Plan of Treatment Not on file documented as of this encounter Visit Diagnoses Not on filedocumented in this encounter Care Teams Anaesthesiologist Relationship Specialty Start Date End Date Donaldo Morgan MD [address] [facility] [address] [place] [address] PCP - General Family Medicine 11/09/24 documented as of this encounter
--- OUTSIDE RECORDS SUMMARY | 2025-02-04 16:37 | XMS_ITS | Encounter Summary ---
Author Organization [facility] Address [address] [place] [address] Care Team Providers Care Minister Assistant Name Role Phone Donaldo Morgan MD Primary Care Provider +1 -[phone] Encounter Details Date Type Department Care Team (Latest Contact Info) Description 12/07/2024 Travel Social History Tobacco Use Types Packs/Day [...] on filedocumented in this encounter Care Teams Minister Assistant Relationship Specialty Start Date End Date Donaldo Morgan MD [address] [facility] [address] [place] [address] PCP - General Family Medicine 11/09/24 documented as of this encounter
--- OUTSIDE RECORDS SUMMARY | 2025-02-04 16:37 | XMS_ITS | Clinical Summary ---
Author Organization [facility] Address [address] [place] [address] Care Team Providers Care Volunteer Recruiter Name Role Phone Donaldo Morgan MD Primary Care Provider [phone] [phone] Allergies No known active allergies Medications Aspirin Low Dose 81 MG EC tablet Take 1 tablet by mouth Daily. 10/30/2024 Active FeroSul 325 (65 Fe) MG tablet Take 1 tablet by mouth Daily. 10/30/2024 Active vitamin (, CLASSIC, vitamin) tablet Take by mouth Daily. Active Blood Glucose Monitoring Suppl (OneTouch Verio Flex System) w/Device kit CHECK GLUCOSE FOUR TIMES DAILY FASTING AND 2 HOURS AFTER EACH MEAL 11/24/2024 Active OneTouch Verio test strip USE TO TEST BLOOD SUGAR FOUR TIMES DAILY FASTING AND 2 HOURS AFTER EACH MEAL 11/24/2024 Active Lancets (OneTouch Delica Plus Zczliy95G) misc USE TO TEST BLOOD SUGAR FOUR TIMES DAILY FASTING AND 2 HOURS AFTER EACH MEAL 11/24/2024 Active Active Problems Problem Noted Date Diagnosed Date Diet controlled gestational diabetes mellitus (GDM) in third trimester 12/07/2024 Assessment & Plan (02/01/2025 2:24 PM EDT): Patient returns today for follow-up of her complicated by gestational diabetes mellitus. Patient has not been sending her glucose logs to us. We have attempted to contact her several times but have been in successful as she has not been responding to messages in her [employer]. By patient report her glucoses are going [...] volume and umbilical artery Dopplers are normal. BPP is 8 out of 8. Patient by her report is doing well with controlling her diabetes by diet alone. As we have no data to the contrary we would not make any changes. We would continue testing until delivery. If no other complications arise we would recommend delivery at 39 weeks gestation. We have not scheduled the patient back to see us but would be happy to do so if needed. Patient was counseled extensively regarding movement will contact her provider immediately if she notices any decreased movement. Assessment & Plan (12/07/2024 1:21 PM EDT): Patient referred back to the diagnostic center due to developing gestational diabetes in this . Patient is checking her fingersticks 4 times a day and reports that her fastings are running 80-120 with postprandials consistently less than 120 [...] regarding movement will contact her provider immediately if she notices any decreased movement. Family history of congenital heart defect 2024 Assessment & Plan (11/09/2024 1:29 PM EDT): Patient was referred to diagnostic center due to family history of congenital heart disease. Patient's brother was born with a 3 chambered heart and after surgery. Additionally an echogenic intracardiac foci was seen in the heart. Ultrasound today demonstrates a normally grown fetus with no abnormality seen. In particular echocardiogram appears to be a structurally normal heart. Amniotic fluid volume and umbilical artery Dopplers are normal. Cervical length appears normal. As the patient's brother is only a second-degree relative to the fetus this fetus is only had a mild increased risk for congenital anomalies. Complete cardiac visualization appeared entirely normal. No structural abnormalities were seen and no echogenic focus was seen today. Patient understands that we cannot rule out con congenital heart defects but that the majority of defects would be seen. I believe this patient be at low risk for congenital heart disease in this fetus. We did discuss the slight increased risk of trisomies particularly trisomy 21 with echogenic intracardiac foci. As the patient is only 24 years old and no other markers were seen the patient's risk for trisomy 21 is still low. We have not scheduled the patient back again but would be happy to see her if needed. Echogenic focus of heart of fetus affecting antepartum care of mother 11/09/2024 11/09/2024 Estimated Date of Delivery Comme nts Yes 02/18/2025 Date entered yogi or to episode creation Encounters Date Type Department Care Team Description 02/01/2025 2:15 PM EDT Office Visit [facility] [address] [address] Suhail Champion MD , unspecified gestational age (Primary Dx); Diet controlled gestational diabetes mellitus (GDM) in third trimester 02/01/2025 1:54 PM EDT - 02/01/2025 11:59 PM EDT Hospital Encounter [facility] [address] [place] [address] Gestational diabetes mellitus (GDM) in third trimester controlled on oral hypoglycemic drug Discharge Disposition: Home or Self Care 02/01/2025 Travel 01/17/2025 Telephone [facility] [address] [place] [address] Mamta Gomez, RN Med Management 01/17/2025 Telephone [facility] [address] [facility] [address] [place] [address] Mamta Gomez, MAYCOL Med Management 01/04/2025 2:15 PM EDT Office Visit [facility] [address] [facility] [address] [place] [address] Subha Valenzuela MD Gestational diabetes mellitus (GDM) in third trimester controlled on oral hypoglycemic drug (Primary Dx) 01/04/2025 1:39 PM EDT - 01/04/2025 11:59 PM EDT Hospital Encounter [facility] [address] [place] [id number] Suhail Champion MD Gestational diabetes mellitus (GDM) in third trimester controlled on oral hypoglycemic drug; Family history of congenital heart defect; Echogenic focus of heart of fetus affecting antepartum care of mother, single or unspecified fetus; , unspecified gestational age Discharge Disposition: Home or Self Care 01/04/2025 Travel 12/07/2024 1:15 PM EDT Office Visit [facility] [address] [address] Suhail Champion MD Gestational diabetes mellitus (GDM) in third trimester controlled on oral hypoglycemic drug (Primary Dx); Family history of congenital heart defect; Echogenic focus of heart of fetus affecting antepartum care of mother, single or unspecified fetus; , unspecified gestational age 0512/07/2024 12:37 PM EDT - 12/07/2024 11:59 PM EDT Hospital Encounter [facility] [address] [place] [address] Katie Loo MD Diet controlled gestational diabetes mellitus (GDM) in third trimester Discharge Disposition: Home or Self Care 12/07/2024 Documentation [facility] [address] [facility] [address] [place] [address] Puja Amador RN 12/07/2024 Travel 11/09/2024 12:30 PM EDT - 11/09/2024 11:59 PM EDT Hospital Encounter [facility] [address] [place] [address] Angelia Horvath DO Abnormal ultrasound; Echogenic intracardiac focus of fetus on ultrasound; , unspecified gestational age Discharge Disposition: Home or Self Care 11/09/2024 12:30 PM EDT Office Visit [facility] [address] [facility] [address] [place] [address] Suhail Champion MD Family history of congenital heart defect (Primary Dx); Echogenic focus of heart of fetus affecting antepartum care of mother, single or unspecified fetus; , unspecified gestational age 0411/09/2024 Travel from Last 3 Months Social History Tobacco Use Types Packs/Day Years Used Date Smoking Tobacco: Never Smokeless Tobacco: Never Tobacco Cessation:Counseling Given: Not Answered Alcohol Use Standard Drinks/Week Comments Not Currently 0 (1 standard drink = 0.6 oz pur e alcohol) Estimated Date of Delivery Comme nts Yes 02/18/2025 Date entered yogi or to episode creation Sex and Gender Information Value Date Recorded Sex Assigned at Not on file Legal Sex Female 3:04 PM EDT Gender Identity Not on file Sexual Orientation Not on file Last Filed Vital Signs Vital Sign Reading Time Taken Comments Blood Pressure 106/53 02/01/2025 1:59 PM EDT Pulse - - Temperature - - Respiratory Rate - - Oxygen Saturation - - Inhaled Oxygen Concentration - - Weight 88.8 kg (195 lb 12.8 oz) 02/01/2025 1:59 PM EDT Height 153.7 cm (5' 0.5 ) 11/09/2024 12 :54 PM EDT Body Mass Index 37.61 11/09/2024 12:54 PM EDT Plan of Treatment Health Maintenance Due Date Last Done Comments Annual Gynecologic Pelvic and Breast Exam 1999 COVID-19 Vaccine ( season) 2024 09/24/2021, 08/09/2021 PAP SMEAR 07/23/2024 07/23/2021 ANNUAL PHYSICAL 10/09/2024 INFLUENZA VACCINE 04/18/2025 05/06/2018, , 05/05/2016, Additional history exists TDAP/TD VACCINES (3 - Td or Tdap) 12/05/2034 12/05/2024, 02/04/2011 HPV VACCINES Completed 02/12/2015, 09/16, 08/14/2014 HEPATITIS C SCREENING Completed 02/07/2022 , 02/07/2022, 02/05/2022, Additional history exists Pneumococcal Vaccine 0-49 Aged Out No longer eligible based on patient's age to complete this topic RSV Vaccine - Adults (No Doses Required) Completed Procedures Procedure Name Priority Date/Time Associated Diagnosis Comments [facility] Routine 02/01/2025 2:27 PM EDT Gestational diabetes mellitus (GDM) in third trimester controlled on oral hypoglycemic drug [facility] Routine 01/04/2025 2:48 PM EDT Gestational diabetes mellitus (GDM) in third trimester controlled on oral hypoglycemic drug Family history of congenital heart defect Echogenic focus of heart of fetus affecting antepartum care of mother, single or unspecified fetus , unspecified gestational age [facility] Routine 12/07/2024 1:24 PM EDT Diet controlled gestational diabetes mellitus (GDM) in third trimester [facility] Routine 11/09/2024 1:30 PM EDT Abnormal ultrasound Echogenic intracardiac focus of fetus on ultrasound , unspecified gestational age from Last 3 Months Results * [facility] (02/01/2025 2:27 PM EDT) Only the most recent of4 resultswithin the time period is included. Anatomical Region Laterality Modality Ultrasound 02/01/2025 2:04 PM EDT Narrative 02/01/2025 2:40 PM EDT PAT NAME: CARLOS BANG [facility] REC#: [id number] DA: [id number] PAT GEND: F PAT TYPE: O EXAM ANAYELI: [id number] REF PHYS KATIE LOO Comparison Studies The [...] EFW (oz) 9 oz EFW by: Hadlock (USQ-RH-FX-FL) Extended Cav. septi pel. tr 6.6 mm Company Marker 8.9 mm Head / Face / Neck [...] Heart / Thorax 3-vessel view: Appears normal 5-zdntrs-rdouibs view: Appears normal Cord insertion: Normal Stomach: [...] movements 2: tone 2: Amniotic fluid volume 8/8 Biophysical profile score Consultation / Office Visit Office note to follow Impression ========= Size consistent with dates but with AC at nearly 90% for dates. No anomalies were identified. Amniotic fluid volume is normal. Umbilical artery S/D ratio is normal. BPP 8/8 today. Patient counseled re movement. Recommendation Follow-up as clinically indicated. Continue testing. Recommend delivery at 37 weeks gestation. Coding ====== Description: 26923-16 Follow Up Ultrasound Description: 83999-56 BPP without NST Floor Layer Tile: RT Rox Rankin , [facility] Physician: Brijesh Champion MD, FACOG Electronically signed by: Brijesh Champion MD, FACOG at: 14:40 Procedure Note Suhail Champion MD - 02/01/2025 PAT NAME: CARLOS BANG MED REC#: [id number] DA: [id number] PAT GEND: F PAT TYPE: O EXAM ANAYELI: [id number] REF PHYS KATIE LOO Comparison Studies The findings of this study are compared to the prior ultrasound studydated 01/04/25 Patient Status Outpatient Indication ======== GDM. Previous c/s x 1. Obesity BMI 38. Maternal Assessment Onjkzk279 cm Height (ft)5 ft Height (in)0 in Qzdhpb56 kg Weight (lb)195 lb BMI37.79 kg/m Method ======= Transabdominal ultrasound examination. View: Good view ========= Ariza . Number of fetuses: 1 Dating ====== Method of dating:based on stated IVETT GA by prior [id number] w + 4 d IVETT by prior assessment:02/18/2025 Ultrasound examination on:02/01/2025 GA by U/S based upon:AC, BPD, Femur, HC GA by U/S37 w + 6 d IVETT by U/S:02/16/2025 Previous dating:based on stated IVETT, selected on 01/04/2025 Agreed IVETT of previous datin02/18/2025 Assigned:based on stated IVETT, selected on 02/01/2025 Assigned GA37 w + 4 d Assigned IVETT:02/18/2025 kirort844 d Biometry Standard BPD91.2 mm 37w 0d 54% Hadlock HOU728.8 mm -/- 84% Onur HC331.9 mm 37w 6d 33% Hadlock AC348.0 mm 38w 5d 90% Hadlock Femur73.8 mm 37w 5d 56% Hadlock Nuqdrhc44.6 mm 38w 0d 89% Onur HC / AC0.95 EFW3,419 g 38w 6d 74% Hadlock EFW (lb)7 lb EFW (oz)9 oz EFW by:Hadlock (TDW-OB-EZ-FL) Extended Cav. septi pel. tr6.6 mm Vp8.9 mm Head / Face / Neck Cephalic index0.79 18% Nicolaides Extremities / Bony Struc FL / BPD0.81 FL / HC0.22 FL / AC0.21 Other Structures IZX343 bpm General Evaluation Cardiac activity present. FHR [...] normal Heart / Thorax 3-vessel view:Appears normal 7-wfyjxs-lqkzvzc view:Appears normal Cord insertion:Normal Stomach:Appears normal Kidneys:Appears [...] at 37 weeks gestation. Coding ====== Description: Follow Up Ultrasound Description: BPP without NST Floor Layer Tile: Yuli Euceda RT Rox , [facility] Physician: Brijesh Champion MD, FACOG Electronically signed by: Brijesh Champion MD, FACOG at: 14:40 us Subha Valenzuela MD [facility] US ORDERABLES Final Result from Last 3 Months Insurance [facility] Care Teams Volunteer Recruiter Relationship Specialty Start Date End Date Donaldo Morgan MD [address] [facility] [address] [place] [address] PCP - General Family Medicine 11/09/24
--- OUTSIDE RECORDS SUMMARY | 2025-02-04 16:37 | XMS_ITS | Encounter Summary ---
Author Organization [facility] Address [address] [place] [address] Care Team Providers Care Commercial Sales Director Name Role Phone Donaldo Morgan MD Primary Care Provider [phone] [phone] Encounter Details Date Type Department Care Team (Late st Contact Info) Description 12/07/[address] [facility] [address] [facility] [address] [place] [address] Puja Amador, RN Social History Tobacco Use Types Packs/Day Years [...] on file documented as of this encounter Progress Notes * Puja Amadro RN - 12/07/2024 1:32 PM EDT Spoke with patient in person. Diabetic folder given and reviewed. Discussed office hours and how tocontact, how to keep a blood sugar log and when to send in through [employer]. Reviewed diet, and the importance of proetin with meals and snacks. Patient voices understanding. Puja Amador RN documented in this encounter Plan of Treatment Not on file documented as of this encounter Visit Diagnoses Not on filedocumented in this encounter Care Teams Commercial Sales Director Relationship Specialty Start Date End Date Donaldo Morgan MD [address] [facility] [address] [place] [address] PCP - General Family Medicine 11/09/24 documented as of this encounter
--- OUTSIDE RECORDS SUMMARY | 2025-02-04 16:37 | XMS_ITS | Encounter Summary ---
Author Organization [facility] Address [address] [place] [address] Care Team Providers Care Art Director Name Role Phone Donaldo Morgan MD Primary Care Provider +1 [phone] Encounter Details Date Type Department Care Team (Latest Contact Info) Description 02/01/2025 Travel Social History Tobacco Use Types Packs/Day [...] on filedocumented in this encounter Care Teams Art Director Relationship Specialty Start Date End Date Donaldo Morgan MD [address] [facility] [address] [place] [address] PCP - General Family Medicine 11/09/24 documented as of this encounter
--- OUTSIDE RECORDS SUMMARY | 2025-02-04 16:37 | XMS_ITS | Clinical Summary ---
Author Organization [facility] Address [address] [facility] [place] [address] Phone Care Team Providers Care Cook Fruit Name Role Phone Unavailable Primary Care Provider Unavailabl e Allergies No known active allergies Medications vit no.320-etit-uso ic 27 mg iron- 800 mcg Oral [...] 2356 ; Surgeon: Chasidy Robert MD; Location: [facility]; Service: Obstetrics Medical History [...] Labor Labor/2nd/3rd Weight Sex Type Anes PTL Canyd A1 A5 Name Clin 022 Term 39w 3d 43h 44m 14h 44m/4h 57m/24h 03m 7 lb 8.6 oz (3.42 kg) M CSP Epidu ral,S jonah N Living 9 9 HAMIL TON,S DIEGO BABY Guyto n, Chasidy Raza MD Complications:Gestational di abetes Delivery Location:[facility] Last Filed Vital Signs [...] EDT Supervision of normal first , antepartum EDUCATION ASSISTANT CYTOLOGY REQUEST (PAP ONLY) Routine 07/23/2021 3:35 PM EST Encounter for supervision of normal first in first trimester from Last 3 Months or Most Recently Relevant to Health Maintenance Results * CHLAMYDIA/GC BY TMA (01/14/2022 10:30 AM EDT) Chlamydia trachomatis Not Detected Not Detected 01/15/2022 2:23 AM EDT [facility] Neisseria gonorrhoeae Not Detected Not Detected 01/15/2022 2:23 AM EDT Rufus [employer] Production Swab SPECIMEN FROM UTERINE CERVIX / Unknown 01/14/2022 10:30 AM EDT 01/14/2022 10:30 AM EDT Narrative PREFERRED [facility] - 01/15/2022 2:23 AM EDT Testing methodology is billboard poster helper mediated amplification (TMA) using the Aptima Combo 2 assay from [employer]. A negative result does not completely rule [...] AL ORDERABLES Final Result [facility], [address] , [place] [address] * EDUCATION ASSISTANT CYTOLOGY REQUEST (PAP ONLY) (07/23/2021 3:35 PM EST) CASE REPORT Gynecologic Cytology Report Case: [id number] Authorizing Provider: Abby Aguilar, Collected: 07/23/2021 1535 FACILITIES SPECIALIST Ordering Location: [facility] Edg Received: 07/23/2021 1535 First Screen: [place] Dunbar CT Specimen: LIQUID-BASED PAP - CERVICAL/ENDOCERV ICAL, Cervix, Endocervical 07/25/2021 9:26 AM EST [facility] PAP FINAL DIAGNOSIS Negative for intraepithelial lesion or malignancy 07/25/2021 9:26 AM EST [facility] at 0926 EST MICROSCOPIC DESCRIPTION Microscopic examination is performed and the findings corroborate the diagnosis. 07/25/2021 9:26 AM EST [facility] PAP SMEAR ADEQUACY Satisfactory for evaluation 07/25/2021 9:26 AM EST [facility] PAP ORGANISMS NOTED Abundant bacteria present. 07/25/2021 9:26 AM EST [facility] ENDOCERVICAL T-ZONE Transformation zone present 07/25/2021 9:26 AM EST [facility] EMBEDDED IMAGES 9:26 AM EST [facility] PAP DISCLAIMER The Pap Smear is a screening test that aids in the detection of cervical cancer and cancer precursors. Both false positive and false negative results can occur. The test should be used at regular intervals, and positive results should be confirmed before definitive therapy. Processed using the ThinPrep Fine Grade Bulldozer Operator Automated cytology screening device (Symtext). 07/25/2021 9:26 AM EST [facility] Thin Prep ENDOCERVICAL STRUCTURE / Unknown 07/23/2021 3:35 PM EST 07/23/2021 3:35 PM EST Abby Aguilar FACILITIES SPECIALIST CYTOLOGY ORDERABLES Fi [place]al [place] [address] from Last 3 Months or Most Recently Relevant to Health Maintenance Insurance [address] TAM [address] [address] [place] [address] [facility] [address] [address] [place] [address] [address] Advance Directives For more information, please contact: [phone] * Full Code (Latest Code Status on File) Date Activated Date Inactivated Comments 02/05/2022 10:00 PM 02/10/2022 5:14 PM
--- OUTSIDE RECORDS SUMMARY | 2025-02-04 16:37 | XMS_ITS | Encounter Summary ---
[facility] Address [address] [place] [address] Care Team Providers Care Transplant Coordinator Name Role Phone Donaldo Morgan MD Primary Care Provider [phone] [phone] Reason for Visit * Reason Onset Date Comments Med Management 01/17/2025 Encounter Details Date Type Department Care Team (Late st Contact Info) Description 01/17/2025 Telephone [facility] [address] [facility] [address] [place] [address] Mamta Gomez, RN Med Management [...] Encounter - Mamta Gomez RN - 01/17/2025 4:07 PM EDT Sent [employer] message documented in this encounter Plan of Treatment Not on file documented as of this encounter Visit Diagnoses Not on filedocumented in this encounter Care Teams Transplant Coordinator Relationship Specialty Start Date End Date Donaldo Morgan MD [address] [facility] [address] [place] [address] PCP - General Family Medicine 11/09/24 documented as of this encounter
--- NOTE | 2025-02-04 17:50 | EXP.ACUTE.PN ---
Subjective *Date: 02/04/25 *Time: 17:50 Interval history: She complains of decreased movement. On examination the nonstress test is reactive with no contractions. There is good srcl-wa-duep variability. Patient perceives the movement when she was placed on the monitor. Medical Exam Head: Present atraumatic ENT: Present normal exam Neck: Present normal inspection Respiratory: Present normal respiratory effort; Absent accessory muscle use Assessment and Plan *Assessment and plan (1) Obesity (BMI 35.0-39.9 without comorbidity): Status: Acute Category: Medical Code(s): E66.9 - Obesity, unspecified (2) Gestational diabetes mellitus (GDM): Status: Acute Qualifiers: Gestational diabetes mellitus control: diet-controlled Trimester: third trimester Qualified Code(s): O24.410 - Gestational diabetes mellitus in , diet controlled Category: Medical Code(s): O24.419 - Gestational diabetes mellitus in , unspecified control (3) Decreased movement during : Status: Acute Qualifiers: Fetus number: single or unspecified fetus Trimester: third trimester Qualified Code(s): O36.8130 - Decreased movements, third trimester, not applicable or unspecified Category: Medical Code(s): O36.8190 - Decreased movements, unspecified trimester, not applicable or unspecified Plan She perceived that she had decreased movement and she has been followed for gestational diabetes. Her nonstress test is reactive with good qpew-sd-tpwj variability. After putting her on the monitor she was able to feel the baby's movements. I have reassured her. We will plan to send her home. She has an appointment tomorrow for an ultrasound with growth and biophysical. She will follow-up in 48 hours with 48 hours with nonstress test in the office. She will be delivered in 4 days time.
[2025-02-04 18:03] VITALS: BP 121/72; PULSE 78; RESP 18; TEMP 36.9; O2SAT 98; BMI 37.7
[2025-02-04 21:55] LABS: Microscopic, Urine URINE MICROSCOPIC (MICROSCOPIC)
[2025-02-04 21:57] LABS: Color,Urine Yellow (Yellow); PH,Urine 7.0 (5.0-8.5); Specific Gravity, Urine 1.020 (1.005-1.030)
[2025-02-04 21:58] LABS: Bilirubin,Urine Negative (Negative); Glucose,Urine (UA) Negative (Negative); Ketones,Urine Negative (Negative); Leukocyte Esterase,Urine Negative (Negative); Protein,Urine Negative (Negative); Urobilinogen,Urine 1.0 EU/dl (0.2)
[2025-02-04 22:24] LABS: Bacteria,Urine 4+ /lpf; Mucus,Urine 2+ /lpf; Squamous Epithelial Cell,Urine 20-50 #/hpf (0-5)
== END 2025-02-04 18:08 | disposition home or self-care (01) ==
LOC: OBOUT 16:36 → OB 16:38
PROVIDERS: PCP Family Medicine; Visit Provider Nurse Practitioner Obstetrics & Gynecology
DX: O24.410 Gestational diabetes mellitus in pregnancy, diet controlled (principal); Z3A.37 37 weeks gestation of pregnancy
CPT/HCPCS: 59025; 81001; 87086; 99212; G0463

== ENCOUNTER 2025-02-05 13:36 | Outpatient (CLI) | payer OTHER, SELFPAY ==
--- OUTSIDE RECORDS SUMMARY | 2024-12-07 12:37 | XMS_ITS | Encounter Summary ---
Author Organization [facility] Address [address] [place] [address] Care Team Providers Care Olericulturist Name Role Phone Donaldo Morgan MD Primary Care Provider [phone] Reason for Referral * Diagnostic Imaging (Routine) - Closed Specialty Diagnoses / Procedures Referred By Contac t Referred To Contact Radiology Diagnoses Diet controlled gestational diabetes mellitus (GDM) in third trimester Procedures [facility] [place] Katie Loo MD [address] [place], [place] [address] Phone: tel: fax: [facility] US PER DIAG [facility] [address] [place] [address] Phone: tel: Referral ID Status Reason Start Date Expiration Date Visits Re quested Visits Authorized [id number] Closed 11/30/2024 03/01/2026 1 1 Reason for Visit * Diagnostic Imaging (Routine) - Closed Specialty Diagnoses / Procedures Referred By Contac t Referred To Contact Radiology Diagnoses Diet controlled gestational diabetes mellitus (GDM) in third trimester Procedures [facility] [place] Katie Loo MD [address] [place] [address] Phone: tel: fax: [facility] PER DI[facility] [address] [place] [address] Phone: tel: Referral ID Status Reason Start Date Expiration Date Visits Re quested Visits Authorized [id number] Closed 11/30/2024 03/01/2026 1 1 Encounter Details Date Type Department Care Team (Latest Contact Info) Description 12/07/2024 12:37 PM EDT - 12/07/2024 11:59 PM EDT Hospital Encounter [facility] PER DIAG CTR [address] [place] [id number] Katie Loo MD [address] [place] [facility] [address] [place] [address] Diet controlled gestational diabetes mellitus (GDM) in [...] Take 1 tablet by mouth Daily. 10/30/2024 vitamin (, CLASSIC, vitamin) tablet Take by mouth Daily. Lancets (Family-MingleTouch Delica Plus [id number]) misc USE TO TEST BLOOD SUGAR FOUR TIMES DAILY FASTING AND 2 HOURS AFTER EACH MEAL 11/24/2024 OneTouch Verio test strip USE TO TEST BLOOD SUGAR FOUR TIMES DAILY FASTING AND 2 HOURS AFTER EACH MEAL 11/24/2024 documented as of this encounter Plan of Treatment Not on file documented as of this encounter Procedures Procedure Name Priority Date/Time Associated Diagnosis Comments [facility] Routine 12/07/2024 1:24 PM EDT Diet controlled gestational diabetes mellitus (GDM) in third trimester documented in this encounter Results * [facility] (12/07/2024 1:24 PM EDT) Anatomical Region Laterality Modality Ultrasound 12/07/2024 1:01 PM EDT Narrative 12/07/2024 1:48 PM EDT PAT NAME: CARLOS BANG MED REC#: [id number] DA: [id number] PAT GEND: F PAT TYPE: O EXAM ANAYELI: [id number] REF PHYS KATIE LOO Comparison Studies The [...] EFW (oz) 11 oz EFW by: Hadlock (GWD-MB-UL-FL) Extended Cav. septi pel. tr 7.7 mm Quality Lab Technician 7.1 mm CM 6.9 mm 50% Nicolaides [...] Normal Heart / Thorax 3-vessel view: Normal 5-mbjwgt-ftbnfiy view: normal Cord insertion: Normal Stomach: Appears [...] review patient's sugars weekly. Coding ====== Description: 65673-67 Follow Up Director Of Strategic Sourcing: Beverly Arce RDMS Physician: Brijesh Champion MD, FACOG Electronically signed by: Brijesh Champion MD, FACOG at: 13:48 Procedure Note Suhail Champion MD - 12/07/2024 PAT NAME: CARLOS BANG MED REC#: [id number] DA: [id number] PAT GEND: F PAT TYPE: O EXAM ANAYELI: [id number] REF PHYS KATIE LOO Comparison Studies The findings of this study are compared to the prior ultrasound studydated 11/09/24 Patient Status Outpatient Indication ======== Concern for EIF. Hx GDM. Previous c/s x 1. Obesity Maternal Assessment Xcrmeq160 cm Height (ft)5 ft Height (in)0 in Mudswa20 kg Weight (lb)201 lb BMI38.87 kg/m Method ======= Transabdominal ultrasound examination. View: Adequate view ========= Ariza . Number of fetuses: 1 Dating ====== GA by prior [id number] w + 4 d IVETT by prior [...] GA29 w + 4 d Assigned IVETT:02/18/2025 [id number] d Biometry Standard BPD80.3 mm 32w 2d 97% Hadlock OFD96.5 mm 31w 1d 87% Onur HC282.3 mm 31w 0d 57% Hadlock Cerebellum tr36.5 mm 30w 1d 65% Hill AC270.5 mm 31w 1d 86% Hadlock Femur58.0 mm 30w 2d 57% Hadlock HC / AC1.04 EFW1,672 g 30w 4d 83% Hadlock EFW (lb)3 lb EFW (oz)11 oz EFW by:Hadlock (VMS-FD-LQ-FL) Extended Cav. septi pel. tr7.7 mm Vp7.1 mm CM6.9 mm 50% Nicolaides Head / Face / Neck Cephalic index0.83 87% Nicolaides Extremities / Bony Struc FL / BPD0.72 FL / HC0.21 FL / AC0.21 Other Structures OBA174 bpm General Evaluation Cardiac activity present. FHR [...] LVOT view:Normal Heart / Thorax 3-vessel view:Normal 6-dkveny-vgagctr view:normal Cord insertion:Normal Stomach:Appears normal Kidneys:Appears normal Bladder:Appears normal Gender:male Wants to know gender:yes Doppler Arterial Umbilical A PI1.06 68% Ash Umbilical A RI0.67 64% Ash Umbilical A [...] will review patient's sugars weekly. Coding ====== Description:07580-45 Follow Up Director Of Strategic Sourcing: Beverly Arce RDAZ Physician: Brijesh Champion MD, FACOG Electronically signed by: Brijesh Champion MD, FACOG at: 13:48 us Katie Loo MD IMG US ORDERABLES Final Resul t documented in this encounter Visit Diagnoses Diagnosis Diet controlled gestational diabetes mellitus (GDM) in third trimester documented in this encounter Care Teams Olericulturist Relationship Specialty Start Date End Date Donaldo Morgan MD [address] [place] [facility] [address] [place] [address] PCP - General Family Medicine 11/09/24 documented as of this encounter
--- OUTSIDE RECORDS SUMMARY | 2024-12-07 13:15 | XMS_ITS | Encounter Summary ---
Author Organization [facility] Address [address] [place] [address] Care Team Providers Care Transportation Supervisor Name Role Phone Donaldo Morgan MD Primary Care Provider [phone] [phone] Reason for Referral * Diagnostic Imaging (Routine) - Closed Specialty Diagnoses / Procedures Referred By Contac t Referred To Contact Radiology Diagnoses Gestational diabetes mellitus (GDM) in third trimester controlled on oral hypoglycemic drug Family history of congenital heart defect Echogenic focus of heart of fetus affecting antepartum care of mother, single or unspecified fetus , unspecified gestational age Procedures [facility] Suhail Champion MD [address] [facility] [address] [place] [address] Phone: tel: fax: Referral ID Status Reason Start Date Expiration Date Visits Re quested Visits Authorized [id number] Closed 12/07/2024 03/08/2026 1 1 Reason for Visit * Reason Comments GDM; Prev c/s x1 Encounter Details Date Type Department Care Team (Late st Contact Info) Description 12/07/2024 1:15 PM EDT Office Visit [facility] MATERNAL MEDICINE [address] [facility] [address] [place] [address] Suhail Champion MD [address] [facility] [address] [place] [phone] Gestational diabetes mellitus (GDM) in third trimester controlled on oral hypoglycemic drug (Primary Dx); Family history of congenital heart defect; Echogenic focus of heart of fetus affecting antepartum care of mother, single or unspecified fetus; , unspecified gestational age Social History Tobacco Use Types Packs/Day Years [...] on file documented as of this encounter Last Filed Vital Signs Vital Sign Reading Time Taken Comments Blood Pressure 120/60 12/07/2024 12:56 PM EDT Pulse - - Temperature - - Respiratory Rate - - Oxygen Saturation - - Inhaled Oxygen Concentration - - Weight 90.7 kg (200 lb) 12/07/2024 12:56 PM EDT Height - - Body Mass Index 38.42 11/09/2024 12:54 PM EDT documented in this encounter Progress Notes * Suhail Champion MD - 12/07/2024 1:21 PM EDTAssociated Problem(s): Diet controlled gestational diabetes mellitus (GDM) in third trimester Patient referred back to the diagnostic center due to developing gestational diabetes in this . Patient is checking her fingersticks 4 times a day and reports that her fastings arerunning 80-120 with postprandials consistently less than 120 mg percent 2 hours after meals. Patient notes no other complications and notes good movement. Ultrasound today demonstrates a fetus with overall growth at the 83rd percentile. Amniotic fluid volume and umbilical artery Dopplers are normal. breathing is noted. No abnormalities are seen. Patient with newly diagnosed gestational diabetes. With her fastings elevated she most likely will need some bedtime Lantus but we will have the patient report her sugars to us weekly and determine the need for insulin after we have see a weeks worth of sugars. Patient reports that she understands a diabetic diet and is having no problems following it now. As the patient most likely will need at least bedtime insulin we would recommend testing beginning at 32 weeks gestation. We will rescan the patient again in 4 weeks time to assess growth and wellbeing. Delivery timing will be determined based on the patient's control in the latter part of but is unlikely to be later than 38 weeks gestation. Patient was counseled extensively regarding movement will contact her provider immediately ifshe notices any decreased movement. * Luther Lux RN - 12/07/2024 1:15 PM EDT Patient denies any leaking of fluid, vaginal bleeding, or contractions. NIPT declined. Patient reports next follow-up appointment with Dr. Loo office is 12/19. * Suhail Champion MD - 12/07/2024 1:15 PM EDT Images from the original note were not included. Documentation of the ultrasound findings, images, and interpretations will be available in the patient's Viewpoint report which is located in the imaging tab in chart review. Maternal/ Medicine Follow Up Note Name: Carlos Bang : 2000 Referring Provider: Katie Loo MD Chief Complaint GDM; Prev c/s x1 Subjective History of Present Illness: Carlos Bang is a 24 y.o. 29w4d who presents today for GDM IVETT: Estimated Date of Delivery: 02/18/25 ROS: As noted in HPI. Objective Vital Signs BP 120/60 Wt 90.7 kg (200 lb) Estimated body mass index is 38.42 kg/m?? as calculated from the following: Height as of 11/09/24: 153.7 cm (60.5 ). Weight as of this encounter: 90.7 kg (200 lb). Physical Exam Ultrasound Impression: See Viewpoint Assessment and Plan Carlos Bang is a 24 y.o. 29w4d who presents today for GDM Diagnoses and all orders for this visit: 1. Gestational diabetes mellitus (GDM) in third trimester controlled on oral hypoglycemic drug (Primary) Assessment & Plan: Patient referred back to the diagnostic center due to developing gestational diabetes in this . Patient is checking her fingersticks 4 times a day and reports that her fastings arerunning 80-120 with postprandials consistently less than 120 mg percent 2 hours after meals. Patient notes no other complications and notes good movement. Ultrasound today demonstrates a fetus with overall growth at the 83rd percentile. Amniotic fluid volume and umbilical artery Dopplers are normal. breathing is noted. No abnormalities areseen. Patient with newly diagnosed gestational diabetes. With her fastings elevated she most likely will need some bedtime Lantus but we will have the patient report her sugars to us weekly and determine the need for insulin after we have see a weeks worth of sugars. Patient reports that she understandsa diabetic diet and is having no problems following it now. As the patient most likely will need atleast bedtime insulin we would recommend testing beginning at 32 weeks gestation. We willrescan the patient again in 4 weeks time to assess growth and wellbeing. Delivery timing willbe determined based on the patient's control in the latter part of but is unlikely to be later than 38 weeks gestation. Patient was counseled extensively regarding movement will contact her provider immediately ifshe notices any decreased movement. Orders: - [facility]; Future 2. Family history of congenital heart defect - [facility]; Future 3. Echogenic focus of heart of fetus affecting antepartum care of mother, single or unspecified fetus - [facility]; Future 4. , unspecified gestational age - [facility]; Future Follow Up Return in about 4 weeks (around 01/04/2025). I spent 15 minutes caring for the patient on the day of service. This included: obtaining or reviewing a separately obtained medical history, reviewing patient records, performing a medically appropriate exam and/or evaluation, counseling or educating the patient/family/caregiver, ordering medications, labs, and/or procedures and documenting such in the medical record. This does not include time spent on review and interpretation of other tests such as ultrasound or the performance of other procedures such as amniocentesis or CVS. Suhail Champion MD Maternal Medicine, [facility] [place] 12/07/2024 documented in this encounter Plan of Treatment Not on file documented as of this encounter Results * [facility] (01/04/2025 2:48 PM EDT) Anatomical Region Laterality Modality Ultrasound 01/04/2025 2:21 PM EDT Narrative 01/07/2025 9:37 PM EDT PAT NAME: CARLOS BANG MED REC#: [id number] DA: 2000 PAT GEND: F PAT TYPE: O EXAM ANAYELI: [id number] REF PHYS KATIE LOO Comparison Studies The findings of this study are compared to the prior ultrasound study dated 12/07/24 Patient Status Outpatient Indication ======== GDM. Previous c/s x 1. Obesity BMI 38. Maternal Assessment Height 153 cm Height (ft) 5 ft Height (in) 0 in Weight 89 kg Weight (lb) 196 lb BMI 37.98 kg/m Method ======= Transabdominal ultrasound examination. View: Good view ========= Ariza . Number of fetuses: 1 Dating ====== Method of dating: based on stated IVETT GA by prior assessment 33 w + 4 d IVETT by prior assessment: 02/18/2025 Ultrasound examination on: 01/04/2025 GA by U/S based upon: AC, BPD, Femur, HC GA by U/S 35 w + 1 d IVETT by U/S: 02/07/2025 Previous dating: based on stated IVETT, selected on 11/09/2024 Agreed IVETT of previous datin02/18/2025 Assigned: based on stated IVETT, selected on 01/04/2025 Assigned GA 33 w + 4 d Assigned IVETT: 02/18/2025 length 280 d Biometry Standard BPD 87.6 mm 35w 3d 90% Hadlock OFD 114.8 mm 39w 6d >99% Onur HC 321.6 mm 36w 2d 82% Hadlock Cerebellum tr 47.0 mm 35w 3d 73% Hill AC 302.9 mm 34w 2d 72% Hadlock Femur 67.4 mm 34w 5d 69% Hadlock Humerus 59.5 mm 34w 4d 83% Onur HC / AC 1.06 EFW 2,491 g 34w 4d 75% Hadlock EFW (lb) 5 lb EFW (oz) 8 oz EFW by: Hadlock (OLT-[id number]-OI-FL) Extended Cav. septi pel. tr 6.2 mm Systems Qa Analyst 7.4 mm CM 9.0 mm 86% Nicolaides Head / Face / Neck Cephalic index 0.76 13% Nicolaides Extremities / Bony Struc FL / BPD 0.77 FL / HC 0.21 FL / AC 0.22 Other Structures FHR 153 bpm General Evaluation Cardiac activity present. FHR 153 bpm. movements present. Presentation cephalic. Placenta Placental site: posterior. Umbilical cord Cord vessels: 3 vessel cord. Amniotic fluid Amount of AF: normal. MVP 6.2 cm. DAVID 20.4 cm. Q1 4.4 cm, Q2 3.9 cm, Q3 6.2 cm, Q4 6.0 cm. Anatomy Cranium: Normal Cavum septi pellucidi: Normal Cerebellum: Normal Cisterna magna: Normal Head / Neck Rt lateral ventricle: Normal Lt lateral ventricle: Normal Lips: Normal Profile: Normal Nose: Normal 4-chamber view: Appears normal RVOT view: Appears normal LVOT view: Appears normal Heart / Thorax Ductal arch view: Appears normal 3-vessel view: Appears normal 5-tucdpk-tgtgtes view: Appears normal Cord insertion: Normal Stomach: Appears normal Kidneys: Appears normal Bladder: Appears normal Gender: male Wants to know gender: yes Doppler Arterial Umbilical A PI 0.64 6% Ash Umbilical A RI 0.48 6% Ash Umbilical A PS -42.86 cm/s Umbilical A ED -22.48 cm/s Umbilical A TAmax -31.87 cm/s Umbilical A MD -20.37 cm/s Umbilical A S / D 1.91 9% Ash Umbilical A HR 178 bpm Biophysical Profile 2: breathing movements 2: Gross body movements 2: tone 2: Amniotic fluid volume 02/23 Biophysical profile score Impression ========= Today's exam reveals a SIUP in cephalic presentation with biometry consistent with dates. Limited anatomic survey appears normal. The DAVID and BPP are normal. Recommendation Follow up 4 weeks Coding ====== Description: 83860-79 Follow Up Ultrasound Description: BPP without NST Collaborating Supervising Physician: RT Rox Rankin , [facility] Physician: Subha Valenzuela MD, FACOG Electronically signed by: Subha Valenzuela MD, FACOG at: 21:37 Procedure Note Subha Valenzuela MD - 01/07/2025 PAT NAME: CARLOS BANG MED REC#: [id number] DA: [id number] PAT GEND: F PAT TYPE: O EXAM ANAYELI: [id number] REF PHYS KATIE LOO Comparison Studies The findings of this study are compared to the prior ultrasound studydated 12/07/24 Patient Status Outpatient Indication ======== GDM. Previous c/s x 1. Obesity BMI 38. Maternal Assessment Nswatj394 cm Height (ft)5 ft Height (in)0 in Glrulh11 kg Weight (lb)196 lb BMI37.98 kg/m Method ======= Transabdominal ultrasound examination. View: Good view ========= Ariza . Number of fetuses: 1 Dating ====== Method of dating:based on stated IVETT GA by prior [id number] w + 4 d IVETT by prior assessment:02/18/2025 Ultrasound examination on:01/04/2025 GA by U/S based upon:AC, BPD, Femur, HC GA by U/S35 w + 1 d IVETT by U/S:02/07/2025 Previous dating:based on stated IVETT, selected on 11/09/2024 Agreed IVETT of previous datin02/18/2025 Assigned:based on stated IVETT, selected on 01/04/2025 Assigned GA33 w + 4 d Assigned IVETT:02/18/2025 [id number] d Biometry Standard BPD87.6 mm 35w 3d 90% Hadlock VWG546.8 mm 39w 6d >99% Onur HC321.6 mm 36w 2d 82% Hadlock Cerebellum tr47.0 mm 35w 3d 73% Hill AC302.9 mm 34w 2d 72% Hadlock Femur67.4 mm 34w 5d 69% Hadlock Ehwbcdw52.5 mm 34w 4d 83% Onur HC / AC1.06 EFW2,491 g 34w 4d 75% Hadlock EFW (lb)5 lb EFW (oz)8 oz EFW by:Hadlock (NDP-PW-ZT-FL) Extended Cav. septi pel. tr6.2 mm Vp7.4 mm CM9.0 mm 86% Nicolaides Head / Face / Neck Cephalic index0.76 13% Nicolaides Extremities / Bony Struc FL / BPD0.77 FL / HC0.21 FL / AC0.22 Other Structures LNU087 bpm General Evaluation Cardiac activity present. FHR 153 bpm. movements present. Presentation cephalic. Placenta Placental site: posterior. Umbilical cord Cord vessels: 3 vessel cord. Amniotic fluid Amount of AF: normal. MVP 6.2 cm. DAVID 20.4 cm. Q1 4.4 cm,Q2 3.9 cm, Q3 6.2 cm, Q4 6.0 cm. Anatomy Cranium:Normal Cavum septi pellucidi:Normal Cerebellum:Normal Cisterna magna:Normal Head / Neck Rt lateral ventricle:Normal Lt lateral ventricle:Normal Lips:Normal Profile:Normal Nose:Normal 4-chamber view:Appears normal RVOT view:Appears normal LVOT view:Appears normal Heart / Thorax Ductal arch view:Appears normal 3-vessel view:Appears normal 9-aixdha-mbglcua view:Appears normal Cord insertion:Normal Stomach:Appears normal Kidneys:Appears normal Bladder:Appears normal Gender:male Wants to know gender:yes Doppler Arterial Umbilical A PI0.64 6% Ash Umbilical A RI0.48 6% Ash Umbilical A PS-42.86 cm/s Umbilical A ED-22.48 cm/s Umbilical A TAmax-31.87 cm/s Umbilical A MD-20.37 cm/s Umbilical A S / D1.91 9% Ash Umbilical A HR178 bpm Biophysical Profile 2: breathing movements 2: Gross body movements 2: tone 2: Amniotic fluid volume 02/23 Biophysical profile score Impression ========= Today's exam reveals a SIUP in cephalic presentation with biometryconsistent with dates. Limited anatomic survey appears normal. TheAFI and BPP are normal. Recommendation Follow up 4 weeks Coding ====== Description:37082-57 Follow Up Ultrasound Description: BPP without NST Collaborating Supervising Physician: RT Massiel R , [facility] Physician: Subha Valenzuela MD, FACOG Electronically signed by: Subha Valenzuela MD, FACOG at: 1:37 us Suhail Champion MD IMG US ORDERABLES Final Re sult documented in this encounter Visit Diagnoses Diagnosis Gestational diabetes mellitus (GDM) in third trimester controlled on oral hypoglycemic drug- Primary Family history of congenital heart defect Echogenic focus of heart of fetus affecting antepartum care of mother, single or unspecified fetus , unspecified gestational age Gestational diabetes mellitus (GDM) in third trimester controlled on oral hypoglycemic drug Family history of congenital heart defect Echogenic focus of heart of fetus affecting antepartum care of mother, single or unspecified fetus , unspecified gestational age documented in this encounter Care Teams Transportation Supervisor Relationship Specialty Start Date End Date Donaldo Morgan MD [address] [place] [address] [address] [place] [address] PCP - General Family Medicine 11/09/24 documented as of this encounter
--- OUTSIDE RECORDS SUMMARY | 2025-01-04 13:39 | XMS_ITS | Encounter Summary ---
Author Organization [facility] Address [address] [place] [address] Care Team Providers Care Laborer [employer]er [employer] Name Role Phone Donaldo Morgan MD Primary Care Provider [phone] [phone] Reason for Referral * Diagnostic Imaging (Routine) - Closed Specialty Diagnoses / Procedures Referred By Contac t Referred To Contact Radiology Diagnoses Gestational diabetes mellitus (GDM) in third trimester controlled on oral hypoglycemic drug Family history of congenital heart defect Echogenic focus of heart of fetus affecting antepartum care of mother, single or unspecified fetus , unspecified gestational age Procedures [facility] Diagnostic [place] Suhail Champion MD [address] [place] [address] Phone: tel: fax: Referral ID Status Reason Start Date Expiration Date Visits Re quested Visits Authorized [id number] Closed 12/07/2024 03/08/2026 1 1 Reason for Visit * Diagnostic Imaging (Routine) - Closed Specialty Diagnoses / Procedures Referred By Contac t Referred To Contact Radiology Diagnoses Gestational diabetes mellitus (GDM) in third trimester controlled on oral hypoglycemic drug Family history of congenital heart defect Echogenic focus of heart of fetus affecting antepartum care of mother, single or unspecified fetus , unspecified gestational age Procedures [facility] Diagnostic [place] Suhail Champion MD [address] [facility] [place] [address] Phone: tel: fax: Referral ID Status Reason Start Date Expiration Date Visits Re quested Visits Authorized [id number] Closed 12/07/2024 03/08/2026 1 1 Encounter Details Date Type Department Care Team (Late st Contact Info) Description 01/04/2025 1:39 PM EDT - 01/04/2025 11:59 PM EDT Hospital Encounter [facility] [address] [place] [id number] Suhail Champion MD [address] [facility] [address] [place], [place] [id number] Gestational diabetes mellitus (GDM) in third trimester controlled on oral hypoglycemic drug; Family history of congenital heart defect; Echogenic focus of heart of fetus affecting antepartum care of mother, single or unspecified fetus; , unspecified gestational age Discharge Disposition: Home or Self Care Social [...] mouth Daily. 10/30/2024 Blood Glucose Monitoring Suppl (Haowj.comTouch Verio Flex System) w/Device kit CHECK GLUCOSE FOUR TIMES DAILY FASTING AND 2 HOURS AFTER EACH MEAL 11/24/2024 FeroSul 325 (65 Fe) MG tablet Take 1 tablet by mouth Daily. 10/30/2024 vitamin (, CLASSIC, vitamin) tablet Take by mouth Daily. Lancets (Haowj.comTouch Delica Plus Yhjedr23M) misc USE TO TEST BLOOD SUGAR FOUR TIMES DAILY FASTING AND 2 HOURS AFTER EACH MEAL 11/24/2024 OneTouch Verio test strip USE TO TEST BLOOD SUGAR FOUR TIMES DAILY FASTING AND 2 HOURS AFTER EACH MEAL 11/24/2024 documented as of this encounter Plan of Treatment Not on file documented as of this encounter Procedures Procedure Name Priority Date/Time Associated Diagnosis Comments [facility] Routine 01/04/2025 2:48 PM EDT Gestational diabetes mellitus (GDM) in third trimester controlled on oral hypoglycemic drug Family history of congenital heart defect Echogenic focus of heart of fetus affecting antepartum care of mother, single or unspecified fetus , unspecified gestational age documented in this encounter Results * [facility] (01/04/2025 2:48 PM EDT) Anatomical Region Laterality Modality Ultrasound 01/04/2025 2:21 PM EDT Narrative 01/07/2025 9:37 PM EDT PAT NAME: [facility] REC#: [id number] DA: [id number] PAT GEND: F PAT TYPE: O EXAM ANAYELI: [id number] REF PHYS KATIE LOO Comparison Studies The [...] EFW (oz) 8 oz EFW by: Hadlock (RQV-JO-RJ-FL) Extended Cav. septi pel. tr 6.2 mm Retort Forker 7.4 mm CM 9.0 mm 86% Nicolaides [...] view: Appears normal 3-vessel view: Appears normal 7-lsvbqt-kxftuve view: Appears normal Cord insertion: Normal Stomach: [...] Follow up 4 weeks Coding ====== Description: 13296-73 Follow Up Ultrasound Description: BPP without NST Multiple Slide Operator: RT Rox Rankin , [facility] Physician: Subha Valenzuela MD, FACOG Electronically signed by: Subha Valenzuela MD, FACOG at: 21:37 Procedure Note Subha Valenzuela MD - 01/07/2025 PAT NAME: CARLOS BANG [facility] REC#: [id number] DA: [id number] PAT GEND: F PAT TYPE: O EXAM ANAYELI: [id number] REF PHYS KATIE LOO Comparison Studies The findings of this study are compared to the prior ultrasound studydated 12/07/24 Patient Status Outpatient Indication ======== GDM. Previous c/s x 1. Obesity BMI 38. Maternal Assessment Aehczi495 cm Height (ft)5 ft Height (in)0 in Hmbhiw11 kg Weight (lb)196 lb BMI37.98 kg/m Method ======= Transabdominal ultrasound examination. View: Good view ========= Ariza . Number of fetuses: 1 Dating ====== Method of dating:based on stated IVETT GA by prior honmcdplze80 w + 4 d IVETT by prior assessment:02/18/2025 Ultrasound examination on:01/04/2025 GA by U/S based upon:AC, BPD, Femur, HC GA by U/S35 w + 1 d IVETT by U/S:02/07/2025 Previous dating:based on stated IVETT, selected on 11/09/2024 Agreed IVETT of previous datin02/18/2025 Assigned:based on stated IVETT, selected on 01/04/2025 Assigned GA33 w + 4 d Assigned IVETT:02/18/2025 [id number] d Biometry Standard BPD87.6 mm 35w 3d 90% Hadlock WXB051.8 mm 39w 6d >99% Onur HC321.6 mm 36w 2d 82% Hadlock Cerebellum tr47.0 mm 35w 3d 73% Hill AC302.9 mm 34w 2d 72% Hadlock Femur67.4 mm 34w 5d 69% Hadlock Xaikyrm31.5 mm 34w 4d 83% Onur HC / AC1.06 EFW2,491 g 34w 4d 75% Hadlock EFW (lb)5 lb EFW (oz)8 oz EFW by:Hadlock (IPD-GA-SB-FL) Extended Cav. septi pel. tr6.2 mm Vp7.4 mm CM9.0 mm 86% Nicolaides Head / Face / Neck Cephalic index0.76 13% Nicolaides Extremities / Bony Struc FL / BPD0.77 FL / HC0.21 FL / AC0.22 Other Structures BBK169 bpm General Evaluation Cardiac activity present. FHR [...] Ductal arch view:Appears normal 3-vessel view:Appears normal 1-xmwlyl-hqqggdv view:Appears normal Cord insertion:Normal Stomach:Appears normal Kidneys:Appears [...] movements 2: tone 2: Amniotic fluid volume 8 Biophysical profile score Impression ========= Today's exam reveals a SIUP in cephalic presentation with biometryconsistent with dates. Limited anatomic survey appears normal. TheAFI and BPP are normal. Recommendation Follow up 4 weeks Coding ====== Description:95099-29 Follow Up Ultrasound Description:36097-63 BPP without NST Multiple Slide Operator: RT Rox Rankin , [facility] Physician: Subha Valenzuela MD, FACOG Electronically signed by: Subha Valenzuela MD, FACOG at: 1:37 Suhail Champion MD IMG US ORDERABLES Final Re sult documented in this encounter Visit Diagnoses Diagnosis Gestational diabetes mellitus (GDM) in third trimester controlled on oral hypoglycemic drug Family history of congenital heart defect Echogenic focus of heart of fetus affecting antepartum care of mother, single or unspecified fetus , unspecified gestational age documented in this encounter Care Teams Laborer [employer]er [employer] Relationship Specialty Start Date End Date Donaldo Morgan MD [address] [facility] [address] [place] [address] PCP - General Family Medicine 11/09/24 documented as of this encounter
--- OUTSIDE RECORDS SUMMARY | 2025-01-04 14:15 | XMS_ITS | Encounter Summary ---
Author Organization [facility] Address [address] [place] [address] Care Team Providers Care Field Recruiter Name Role Phone Donaldo Morgan MD Primary Care Provider [phone] [phone] Reason for Referral * Diagnostic Imaging (Routine) - Closed Specialty Diagnoses / Procedures Referred By Contac t Referred To Contact Radiology Diagnoses Gestational diabetes mellitus (GDM) in third trimester controlled on oral hypoglycemic drug Procedures [facility] Subha Valenzuela MD [address] [facility] [address] [place] [address] Phone: tel: fax: [facility] US PER DIAG CTR [address] [place] [address] Phone: tel: Referral ID Status Reason Start Date Expiration Date Visits Re quested Visits Authorized [id number] Closed 01/07/2025 04/08/2026 1 1 Reason for Visit * Reason Comments GDM; prev. c/s x1; obesity Encounter Details Date Type Department Care Team (Late st Contact Info) Description 01/04/2025 2:15 PM EDT Office Visit [facility] MATERNAL MEDICINE [address] [facility] [address] [place] [address] Subha Valenzuela MD [address] [facility] [address] [place] [address] Gestational diabetes mellitus (GDM) in third trimester controlled on oral hypoglycemic drug (Primary Dx) Social History Tobacco Use Types Packs/Day Years [...] Sign Reading Time Taken Comments Blood Pressure 119/61 01/04/2025 2:15 PM EDT Pulse - - Temperature - - Respiratory Rate - - Oxygen Saturation - - Inhaled Oxygen Concentration - - Weight 89.1 kg (196 lb 6.4 oz) 01/04/2025 2:15 P M EDT Height - - Body Mass Index 37.73 11/09/2024 12:54 PM EDT documented in this encounter Progress Notes * Niesha Monteiro RN - 01/04/2025 2:15 PM EDT Patient denies any leaking of fluid or vaginal bleeding. She reports melanie weston contractions. NIPT declined. Patient reports next follow-up appointment with Dr. Loo's office is 01/23. * Subha Valenzuela MD - 01/04/2025 2:15 PM EDT Patient seen in Diagnostic Center today for ultrasound. Please see ultrasound report under imaging tab of patient chart in [facility] (Viewpoint report). Subha Valenzuela MD documented in this encounter Plan of Treatment Not on file documented as of this encounter Results * [facility] (02/01/2025 2:27 PM EDT) Anatomical Region Laterality Modality Ultrasound 02/01/2025 2:04 PM EDT Narrative 02/01/2025 2:40 PM EDT PAT NAME: CARLOS BANG MED REC#: [id number] DA: 2000 PAT GEND: F PAT TYPE: O EXAM ANAYELI: [id number] REF PHYS KATIE LOO Comparison Studies The findings of this study are compared to the prior ultrasound study dated 01/04/25 Patient Status Outpatient Indication ======== GDM. Previous c/s x 1. Obesity BMI 38. Maternal Assessment Height 153 cm Height (ft) 5 ft Height (in) 0 in Weight 88 kg Weight (lb) 195 lb BMI 37.79 kg/m Method ======= Transabdominal ultrasound examination. View: Good view ========= Ariza . Number of fetuses: 1 Dating ====== Method of dating: based on stated IVETT GA by prior assessment 37 w + 4 d IVETT by prior assessment: 02/18/2025 Ultrasound examination on: 02/01/2025 GA by U/S based upon: AC, BPD, Femur, HC GA by U/S 37 w + 6 d IVETT by U/S: 02/16/2025 Previous dating: based on stated IVETT, selected on 01/04/2025 Agreed IVETT of previous datin02/18/2025 Assigned: based on stated IVETT, selected on 02/01/2025 Assigned GA 37 w + 4 d Assigned IVETT: 02/18/2025 length 280 d Biometry Standard BPD 91.2 mm 37w 0d 54% Hadlock OFD 115.8 mm -/- 84% Onur HC 331.9 mm 37w 6d 33% Hadlock AC 348.0 mm 38w 5d 90% Hadlock Femur 73.8 mm 37w 5d 56% Hadlock Humerus 65.6 mm 38w 0d 89% Onur HC / AC 0.95 EFW 3,419 g 38w 6d 74% Hadlock EFW (lb) 7 lb EFW (oz) 9 oz EFW by: Hadlock (TUK-WU-OG-FL) Extended Cav. septi pel. tr 6.6 mm Church Musician 8.9 mm Head / Face / Neck Cephalic index 0.79 18% Nicolaides Extremities / Bony Struc FL / BPD 0.81 FL / HC 0.22 FL / AC 0.21 Other Structures FHR 149 bpm General Evaluation Cardiac activity present. FHR 149 bpm. movements present. Presentation cephalic. Placenta Placental site: posterior. Umbilical cord Cord vessels: 3 vessel cord. Amniotic fluid Amount of AF: normal. MVP 5.7 cm. DAVID 16.8 cm. Q1 4.1 cm, Q2 4.5 cm, Q3 5.7 cm, Q4 2.5 cm. Anatomy Cranium: Normal Cavum septi pellucidi: Normal Head / Neck Rt lateral ventricle: Normal Lt lateral ventricle: Normal 4-chamber view: Appears normal RVOT view: Appears normal Heart / Thorax 3-vessel view: Appears normal 5-ldapxq-nxuvgov view: Appears normal Cord insertion: Normal Stomach: Appears normal Kidneys: Appears normal Bladder: Appears normal Gender: male Wants to know gender: yes Doppler Arterial Umbilical A PI 0.89 69% Ash Umbilical A RI 0.58 61% Ash Umbilical A PS -46.92 cm/s Umbilical A ED -19.85 cm/s Umbilical A TAmax -30.54 cm/s Umbilical A MD -19.66 cm/s Umbilical A S / D 2.36 53% Ash Umbilical A HR 135 bpm Biophysical Profile 2: breathing movements 2: Gross body movements 2: tone 2: Amniotic fluid volume 02/23 Biophysical profile score Consultation / Office Visit Office note to follow Impression ========= Size consistent with dates but with AC at nearly 90% for dates. No anomalies were identified. Amniotic fluid volume is normal. Umbilical artery S/D ratio is normal. BPP 02/23 today. Patient counseled re movement. Recommendation Follow-up as clinically indicated. Continue testing. Recommend delivery at 37 weeks gestation. Coding ====== Description: 06754-43 Follow Up Ultrasound Description: 19643-24 BPP without NST Quality Improvement Coordinator (Rn): Yuli Euceda RT R , [facility] Physician: Brijesh Champion MD, FACOG Electronically signed by: Brijesh Champion MD, FACOG at: 14:40 Procedure Note Suhail Champion MD - 02/01/2025 PAT NAME: CARLOS BANG MED REC#: [id number] DA: [id number] PAT GEND: F PAT TYPE: O EXAM ANAYELI: [id number] REF PHYS KATIE LOO Comparison Studies The findings of this study are compared to the prior ultrasound studydated 01/04/25 Patient Status Outpatient Indication ======== GDM. Previous c/s x 1. Obesity BMI 38. Maternal Assessment Lpvhcn601 cm Height (ft)5 ft Height (in)0 in Rxpxih08 kg Weight (lb)195 lb BMI37.79 kg/m Method ======= Transabdominal ultrasound examination. View: Good view ========= Ariza . Number of fetuses: 1 Dating ====== Method of dating:based on stated IVETT GA by prior znbthkhqbi26 w + 4 d IVETT by prior assessment:02/18/2025 Ultrasound examination on:02/01/2025 GA by U/S based upon:AC, BPD, Femur, HC GA by U/S37 w + 6 d IVETT by U/S:02/16/2025 Previous dating:based on stated IVETT, selected on 01/04/2025 Agreed IVETT of previous datin02/18/2025 Assigned:based on stated IVETT, selected on 02/01/2025 Assigned GA37 w + 4 d Assigned IVETT:02/18/2025 d Biometry Standard BPD91.2 mm 37w 0d 54% Hadlock CJP847.8 mm -/- 84% Onur HC331.9 mm 37w 6d 33% Hadlock AC348.0 mm 38w 5d 90% Hadlock Femur73.8 mm 37w 5d 56% Hadlock Cbtgfln01.6 mm 38w 0d 89% Onur HC / AC0.95 EFW3,419 g 38w 6d 74% Hadlock EFW (lb)7 lb EFW (oz)9 oz EFW by:Hadlock (XPP-TY-XY-FL) Extended Cav. septi pel. tr6.6 mm Vp8.9 mm Head / Face / Neck Cephalic index0.79 18% Nicolaides Extremities / Bony Struc FL / BPD0.81 FL / HC0.22 FL / AC0.21 Other Structures GZG246 bpm General Evaluation Cardiac activity present. FHR 149 bpm. movements present. Presentation cephalic. Placenta Placental site: posterior. Umbilical cord Cord vessels: 3 vessel cord. Amniotic fluid Amount of AF: normal. MVP 5.7 cm. DAVID 16.8 cm. Q1 4.1 cm,Q2 4.5 cm, Q3 5.7 cm, Q4 2.5 cm. Anatomy Cranium:Normal Cavum septi pellucidi:Normal Head / Neck Rt lateral ventricle:Normal Lt lateral ventricle:Normal 4-chamber view:Appears normal RVOT view:Appears normal Heart / Thorax 3-vessel view:Appears normal 4-pfymgg-xrfuftk view:Appears normal Cord insertion:Normal Stomach:Appears normal Kidneys:Appears normal Bladder:Appears normal Gender:male Wants to know gender:yes Doppler Arterial Umbilical A PI0.89 69% Ash Umbilical A RI0.58 61% Ash Umbilical A PS-46.92 cm/s Umbilical A ED-19.85 cm/s Umbilical A TAmax-30.54 cm/s Umbilical A MD-19.66 cm/s Umbilical A S / D2.36 53% Ash Umbilical A HR135 bpm Biophysical Profile 2: breathing movements 2: Gross body movements 2: tone 2: Amniotic fluid volume 02/23 Biophysical profile score Consultation / Office Visit Office note to follow Impression ========= Size consistent with dates but with AC at nearly 90% for dates. No anomalies were identified. Amniotic fluid volume is normal. Umbilical artery S/D ratio is normal. BPP 02/23 today. Patient counseled re movement. Recommendation Follow-up as clinically indicated. Continue testing. Recommend delivery at 37 weeks gestation. Coding ====== Description:96517-16 Follow Up Ultrasound Description:07305-38 BPP without NST Quality Improvement Coordinator (Rn): RT Rox Rankin , [facility] Physician: Brijesh Champion MD, FACOG Electronically signed by: Brijesh Champion MD, FACOG at: 14:40 us Subha Valenzuela MD IMG US ORDERABLES Final Result documented in this encounter Visit Diagnoses Diagnosis Gestational diabetes mellitus (GDM) in third trimester controlled on oral hypoglycemic drug- Primary Gestational diabetes mellitus (GDM) in third trimester controlled on oral hypoglycemic drug documented in this encounter Care Teams Field Recruiter Relationship Specialty Start Date End Date Donaldo Morgan MD [facility] [address] [facility] [address] [place] [id number] PCP - General Family Medicine 11/09/24 documented as of this encounter
--- OUTSIDE RECORDS SUMMARY | 2025-02-01 13:54 | XMS_ITS | Encounter Summary ---
Author Organization [facility] Address [address] [place] [address] Care Team Providers Care Principal Hardware Architect Name Role Phone Donaldo Morgan MD Primary Care Provider +1 [phone] Reason for Referral * Diagnostic Imaging (Routine) - Closed Specialty Diagnoses / Procedures Referred By Contac t Referred To Contact Radiology Diagnoses Gestational diabetes mellitus (GDM) in third trimester controlled on oral hypoglycemic drug Procedures [facility] Diagnostic [place] Subha Valenzuela MD [address] [place] [address] Phone: tel: fax: [facility] US PER DIAG CTR [address] [place] [address] Phone: tel: Referral ID Status Reason Start Date Expiration Date Visits Re quested Visits Authorized [id number] Closed 01/07/2025 04/08/2026 1 1 Reason for Visit * Diagnostic Imaging (Routine) - Closed Specialty Diagnoses / Procedures Referred By Contac t Referred To Contact Radiology Diagnoses Gestational diabetes mellitus (GDM) in third trimester controlled on oral hypoglycemic drug Procedures [facility] Subha Valenzuela MD [address] [place] [address] [address] Phone: tel: fax: [facility] US PER DIAG CTR [address] [place] [address] Phone: tel: Referral ID Status Reason Start Date Expiration Date Visits Re quested Visits Authorized [id number] Closed 01/07/2025 04/08/2026 1 1 Encounter Details Date Type Department Care Team (Hernan tse Contact Info) Description 02/01/2025 1:54 PM EDT - 02/01/2025 11:59 PM EDT Hospital Encounter [facility] PER DIAG CTR [address] [place] [address] Subha Valenzuela MD [address] [place] [address] Gestational diabetes mellitus (GDM) in [...] mouth Daily. 10/30/2024 Blood Glucose Monitoring Suppl (MiewTouch Verio Flex System) w/Device kit CHECK GLUCOSE FOUR TIMES DAILY FASTING AND 2 HOURS AFTER EACH MEAL 11/24/2024 FeroSul 325 (65 Fe) MG tablet Take 1 tablet by mouth Daily. 10/30/2024 vitamin (, CLASSIC, vitamin) tablet Take by mouth Daily. Lancets (MiewTouch Delica Plus Cycktv68P) misc USE TO TEST BLOOD SUGAR FOUR TIMES DAILY FASTING AND 2 HOURS AFTER EACH MEAL 11/24/2024 OneTouch Verio test strip USE TO TEST BLOOD SUGAR FOUR TIMES DAILY FASTING AND 2 HOURS AFTER EACH MEAL 11/24/2024 documented as of this encounter Plan of Treatment Not on file documented as of this encounter Procedures Procedure Name Priority Date/Time Associated Diagnosis Comments [facility] Routine 02/01/2025 2:27 PM EDT Gestational diabetes mellitus (GDM) in third trimester controlled on oral hypoglycemic drug documented in this encounter Results * [facility] (02/01/2025 2:27 PM EDT) Anatomical Region Laterality Modality Ultrasound 02/01/2025 2:04 PM EDT Narrative 02/01/2025 2:40 PM EDT PAT NAME: CARLOS BANG [facility] REC#: [id number] DA: 2000 PAT GEND: F PAT TYPE: O EXAM ANAYELI: [id number] REF PHYS KATIE LOO Comparison Studies The [...] EFW (oz) 9 oz EFW by: Hadlock (SNH-YZ-CD-FL) Extended Cav. septi pel. tr 6.6 mm Ux Architect 8.9 mm Head / Face / Neck [...] Heart / Thorax 3-vessel view: Appears normal 9-qvljke-wrvnfzc view: Appears normal Cord insertion: Normal Stomach: [...] at 37 weeks gestation. Coding ====== Description: 16233-06 Follow Up Ultrasound Description: 70024-98 BPP without NST Flat Hammerer: RT Rox Rankin , [facility] Physician: Brijesh Champion MD, FACOG Electronically signed by: Brijesh Champion MD, FACOG at: 14:40 Procedure Note Suhail Champion MD - 02/01/2025 PAT NAME: CARLOS BNAG MED REC#: [id number] DA: [id number] PAT GEND: F PAT TYPE: O EXAM ANAYELI: [id number] REF PHYS KATIE LOO Comparison Studies The findings of this study are compared to the prior ultrasound studydated 01/04/25 Patient Status Outpatient Indication ======== GDM. Previous c/s x 1. Obesity BMI 38. Maternal Assessment Pyptnh631 cm Height (ft)5 ft Height (in)0 in Byufmd68 kg Weight (lb)195 lb BMI37.79 kg/m Method ======= Transabdominal ultrasound examination. View: Good view ========= Ariza . Number of fetuses: 1 Dating ====== Method of dating:based on stated IVETT GA by prior jbxiglsgxw27 w + 4 d IVETT by prior [...] Standard BPD91.2 mm 37w 0d 54% Hadlock WSJ564.8 mm -/- 84% Onur HC331.9 mm 37w 6d 33% Hadlock AC348.0 mm 38w 5d 90% Hadlock Femur73.8 mm 37w 5d 56% Hadlock Rpduatq84.6 mm 38w 0d 89% Onur HC / AC0.95 EFW3,419 g 38w 6d 74% Hadlock EFW (lb)7 lb EFW (oz)9 oz EFW by:Hadlock (NLZ-VJ-EW-FL) Extended Cav. septi pel. tr6.6 mm Vp8.9 mm Head / Face / Neck Cephalic index0.79 18% Nicolaides Extremities / Bony Struc FL / BPD0.81 FL / HC0.22 FL / AC0.21 Other Structures OKG618 bpm General Evaluation Cardiac activity present. FHR [...] normal Heart / Thorax 3-vessel view:Appears normal 2-qlejhs-lhcnjju view:Appears normal Cord insertion:Normal Stomach:Appears normal Kidneys:Appears [...] delivery at 37 weeks gestation. Coding ====== Description:78958-60 Follow Up Ultrasound Description:73086-66 BPP without NST Flat Hammerer: RT Rox Rankin , [facility] Physician: Brijesh Champion MD, FACOG Electronically signed by: Brijesh Champion MD, FACOG at: 14:40 us Subha Valenzuela MD IMG US ORDERABLES Final Result documented in this encounter Visit Diagnoses Diagnosis Gestational diabetes mellitus (GDM) in third trimester controlled on oral hypoglycemic drug documented in this encounter Care Teams Principal Hardware Architect Relationship Specialty Start Date End Date Donaldo Morgan MD [address] [facility] [address] [place] [address] PCP - General Family Medicine 11/09/24 documented as of this encounter
--- OUTSIDE RECORDS SUMMARY | 2025-02-01 14:15 | XMS_ITS | Encounter Summary ---
Author Organization [facility] Address [address] [place] [address] Care Team Providers Care Alemite Operator Name Role Phone Donaldo Morgan MD Primary Care Provider [phone] [phone] Reason for Visit * Reason Comments GDM; prev. c/s Encounter Details Date Type Department Care Team (Late st Contact Info) Description 02/01/2025 2:15 PM EDT Office Visit [facility] MATERNAL MEDICINE [address] [facility] [address] [place], [place] [phone] Suhail Champion MD [address] [facility] [address] [place] [address] , unspecified gestational age (Primary Dx); Diet [...] not been responding to messages in her Stix Gamest. By patient report her glucoses are going [...] not been responding to messages in her Stix Gamest. By patient report her glucoses are going [...] or [facility]. Suhail Champion MD Maternal Medicine, [facility] Diagnostic [place] 02/01/2025 documented in this encounter Plan of Treatment Not on file documented as of this encounter Visit Diagnoses Diagnosis , unspecified gestational age- Primary Diet controlled gestational diabetes mellitus (GDM) in third trimester documented in this encounter Care Teams Alemite Operator Relationship Specialty Start Date End Date Donaldo Morgan MD [facility] [address] [place] [address] PCP - General Family Medicine 11/09/24 documented as of this encounter
--- OUTSIDE RECORDS SUMMARY | 2025-02-05 13:39 | XMS_ITS | Encounter Summary ---
[facility] Address [address] [place] [address] Care Team Providers Care X Ray Technician Name Role Phone Donaldo Morgan MD Primary Care Provider [phone] [phone] Reason for Visit * Reason Onset Date Comments Med Management 01/17/2025 Encounter Details Date Type Department Care Team (Late st Contact Info) Description 01/17/2025 Telephone [facility] [address] [facility] [address] [place] [address] Mamta Gomez, RN Med Management [...] RN - 01/17/2025 4:07 PM EDT Sent [employer] message documented in this encounter Plan of Treatment Not on file documented as of this encounter Visit Diagnoses Not on filedocumented in this encounter Care Teams X Ray Technician Relationship Specialty Start Date End Date Donaldo Morgan MD [address] [facility] [address] [place] [address] PCP - General Family Medicine 11/09/24 documented as of this encounter
--- OUTSIDE RECORDS SUMMARY | 2025-02-05 13:39 | XMS_ITS | Encounter Summary ---
Author Organization [facility] Address [address] [place] [address] Care Team Providers Care Special Forces Communications Sergeant Name Role Phone Donaldo Morgan MD Primary Care Provider +1 -[phone] Encounter Details Date Type Department Care Team [...] on filedocumented in this encounter Care Teams Special Forces Communications Sergeant Relationship Specialty Start Date End Date Donaldo Morgan MD [address] [place] [facility] [address] [place] [address] PCP - General Family Medicine 11/09/24 documented as of this encounter
--- OUTSIDE RECORDS SUMMARY | 2025-02-05 13:39 | XMS_ITS | Encounter Summary ---
Author Organization [facility] Address [address] [place] [address] Care Team Providers Care Charter Boat Operator Name Role Phone Donaldo Morgan MD Primary Care Provider +1 [phone] Encounter Details Date Type Department Care Team [...] on filedocumented in this encounter Care Teams Charter Boat Operator Relationship Specialty Start Date End Date Donaldo Morgan MD [address] [place] [facility] [address] [place] [address] PCP - General Family Medicine 11/09/24 documented as of this encounter
--- OUTSIDE RECORDS SUMMARY | 2025-02-05 13:39 | XMS_ITS | Clinical Summary ---
Author Organization [facility] Address [address] [facility] [place] [address] Phone Care Team Providers Care Billing Clinician Name Role Phone Unavailable Primary Care Provider Unavailabl e Allergies No known active allergies Medications vit no.747-[id number]-fwp ic 27 mg iron- 800 mcg Oral [...] 2356 ; Surgeon: Chasidy Robert MD; Location: [facility]; Service: Obstetrics Medical History Medical [...] EDT Supervision of normal first , antepartum LEASING DIRECTOR CYTOLOGY REQUEST (PAP ONLY) Routine 07/23/2021 3:35 PM EST Encounter for supervision of normal first in first trimester from Last 3 Months or Most Recently Relevant to Health Maintenance Results * CHLAMYDIA/GC BY TMA (01/14/2022 10:30 AM EDT) Chlamydia trachomatis Not Detected Not Detected 01/15/2022 2:23 AM EDT [facility] Neisseria gonorrhoeae Not Detected Not Detected 01/15/2022 2:23 AM EDT [facility] Swab SPECIMEN FROM UTERINE CERVIX / Unknown 01/14/2022 10:30 AM EDT 01/14/2022 10:30 AM EDT Narrative [facility] - 01/15/2022 2:23 AM EDT Testing methodology is caser shoe parts mediated amplification (TMA) using the Aptima Combo 2 assay from [employer]. A negative result does not completely rule [...] AL ORDERABLES Final Result [facility], [address] , [place] [address] * LEASING DIRECTOR CYTOLOGY REQUEST (PAP ONLY) (07/23/2021 3:35 PM EST) CASE REPORT Gynecologic Cytology Report Case: [id number] Authorizing Provider: Abby Aguilar, Collected: 07/23/2021 1535 FURNACE ERECTOR Ordering Location: [facility] Edg Received: 07/23/2021 1535 First Screen: [place] CT Specimen: LIQUID-BASED PAP - CERVICAL/ENDOCERV ICAL, Cervix, Endocervical 07/25/2021 9:26 AM EST [facility] PAP FINAL DIAGNOSIS Negative for intraepithelial lesion or malignancy 07/25/2021 9:26 AM EST [facility] at 0926 EST MICROSCOPIC DESCRIPTION Microscopic examination is performed and the findings corroborate the diagnosis. 07/25/2021 9:26 AM EST [facility] PAP SMEAR ADEQUACY Satisfactory for evaluation 07/25/2021 9:26 AM EST [facility] PAP ORGANISMS NOTED Abundant bacteria present. 07/25/2021 9:26 AM EST [facility] ENDOCERVICAL T-ZONE Transformation zone present 07/25/2021 9:26 AM EST [facility] EMBEDDED IMAGES 9:26 AM EST [facility] PAP DISCLAIMER The Pap Smear is a screening test that aids in the detection of cervical cancer and cancer precursors. Both false positive and false negative results can occur. The test should be used at regular intervals, and positive results should be confirmed before definitive therapy. Processed using the ThinPrep [employer] Automated cytology screening device (Coupang). 07/25/2021 9:26 AM EST [facility] Thin Prep ENDOCERVICAL STRUCTURE / Unknown 07/23/2021 3:35 PM EST 07/23/2021 3:35 PM EST Abby Aguilar FURNACE ERECTOR CYTOLOGY ORDERABLES [place] [id number] from Last 3 Months or Most Recently Relevant to Health Maintenance Insurance [id number] TAM [id number] [id number] [facility] [address] [address]THONY [address] [address] Advance Directives For more information, please contact: [phone] * Full Code (Latest Code Status on File) Date Activated Date Inactivated Comments 02/05/2022 10:00 PM 02/10/2022 5:14 PM
--- OUTSIDE RECORDS SUMMARY | 2025-02-05 13:39 | XMS_ITS | Encounter Summary ---
Author Organization [facility] Address [address] [place] [address] Care Team Providers Care Graphic Design Intern Name Role Phone Donaldo Morgan MD Primary Care Provider +1 [phone] Encounter Details Date Type Department Care Team (Late st Contact Info) Description 12/07/2024 Documentation [facility] MATERNAL MEDICINE [address] [facility] [address] [place] [address] Puja Amador, RN Social History [...] of this encounter Progress Notes * Puja Amador RN - 12/07/2024 1:32 PM EDT Spoke with patient in person. Diabetic folder given and reviewed. Discussed office hours and how tocontact, how to keep a blood sugar log and when to send in through [employer]. Reviewed diet, and the importance of proetin with meals and snacks. Patient voices understanding. Puja Amador RN documented in this encounter Plan of Treatment Not on file documented as of this encounter Visit Diagnoses Not on filedocumented in this encounter Care Teams Graphic Design Intern Relationship Specialty Start Date End Date Donaldo Morgan MD [address] [place] [facility] [address] [place] [address] PCP - General Family Medicine 11/09/24 documented as of this encounter
--- OUTSIDE RECORDS SUMMARY | 2025-02-05 13:39 | XMS_ITS | Encounter Summary ---
Author Organization [facility] Address [address] [place] [address] Care Team Providers Care Engine Testing Supervisor Name Role Phone Donaldo Morgan MD Primary Care Provider [phone] [phone] Reason for Visit * Reason Onset Date Comments Med Management 01/17/2025 Encounter Details Date Type Department Care Team (Late st Contact Info) Description 01/17/2025 Telephone [facility] MATERNAL MEDICINE [address] [facility] [address] [place] [address] Mamta Gomez, RN Med Management [...] AM EDT LM for pt to check [employer] message documented in this encounter Plan of Treatment Not on file documented as of this encounter Visit Diagnoses Not on filedocumented in this encounter Care Teams Engine Testing Supervisor Relationship Specialty Start Date End Date Donaldo Morgan MD [address] [facility] [address] [place] [address] PCP - General Family Medicine 11/09/24 documented as of this encounter
--- OUTSIDE RECORDS SUMMARY | 2025-02-05 13:39 | XMS_ITS | Encounter Summary ---
Author Organization [facility] Address [address] [place] [address] Care Team Providers Care Supervisor Mold Construction Name Role Phone Donaldo Morgan MD Primary Care Provider +1 [phone] Encounter Details Date Type Department Care Team [...] on filedocumented in this encounter Care Teams Supervisor Mold Construction Relationship Specialty Start Date End Date Donaldo Morgan MD [address] [place] [facility] [address] [place] [address] PCP - General Family Medicine 11/09/24 documented as of this encounter
--- OUTSIDE RECORDS SUMMARY | 2025-02-05 13:39 | XMS_ITS | Clinical Summary ---
Author Organization [facility] Address [address] [address] Care Team Providers Care Middle School Music Teacher Name Role Phone Donaldo Morgan MD Primary Care Provider +1 -[phone] Allergies No known active allergies Medications Aspirin [...] MEAL 11/24/2024 Active Lancets (OneTouch Delica Plus Cbsqsq20N) misc USE TO TEST BLOOD SUGAR FOUR [...] not been responding to messages in her [employer]. By patient report her glucoses are going [...] Description 02/01/2025 2:15 PM EDT Office Visit [facility] MATERNAL MEDICINE [address] [address] Suhail Champion MD , unspecified gestational age (Primary Dx); Diet controlled gestational diabetes mellitus (GDM) in third trimester 02/01/2025 1:54 PM EDT - 02/01/2025 11:59 PM EDT Hospital Encounter [facility] US PER DIAG CTR [address] [place] [address] Subha Valenzuela MD Gestational diabetes mellitus (GDM) in third trimester controlled on oral hypoglycemic drug Discharge Disposition: Home or Self Care 02/01/2025 Travel 01/17/2025 Telephone [facility] MATERNAL MEDICINE [address] [facility] [address] [place] [address] Mamta Gomez, RN Med Management 01/17/2025 Telephone [facility] MATERNAL MEDICINE [address] [facility] [address] [place] [address] Mamta Gomez, RN Med Management 01/04/2025 2:15 PM EDT Office Visit [facility] MATERNAL MEDICINE [address] [facility] [address] [place] [address] Subha Valenzuela MD Gestational diabetes mellitus (GDM) in third trimester controlled on oral hypoglycemic drug (Primary Dx) 01/04/2025 1:39 PM EDT - 01/04/2025 11:59 PM EDT Hospital Encounter [facility] US PER DIAG CTR [address] [place] [address] Suhail Champion MD Gestational diabetes mellitus (GDM) in third trimester controlled on oral hypoglycemic drug; Family history of congenital heart defect; Echogenic focus of heart of fetus affecting antepartum care of mother, single or unspecified fetus; , unspecified gestational age Discharge Disposition: Home or Self Care 01/04/2025 Travel 12/07/2024 1:15 PM EDT Office Visit [facility] MATERNAL MEDICINE [address] [address] Suhail Champion MD Gestational diabetes mellitus (GDM) in third trimester controlled on oral hypoglycemic drug (Primary Dx); Family history of congenital heart defect; Echogenic focus of heart of fetus affecting antepartum care of mother, single or unspecified fetus; , unspecified gestational age 0512/07/2024 12:37 PM EDT - 12/07/2024 11:59 PM EDT Hospital Encounter [facility] US PER DIAG [facility] [address] [place] [address] Katie Loo MD Diet controlled gestational diabetes mellitus (GDM) in third trimester Discharge Disposition: Home or Self Care 12/07/2024 Documentation [facility] MATERNAL MEDICINE [address] [facility] [address] [place] [address] Puja Amador RN 12/07/2024 Travel 11/09/2024 12:30 PM EDT - 11/09/2024 11:59 PM EDT Hospital Encounter [facility] US PER DIAG CTR [address] [place] [address] Angelia Horvath DO Abnormal ultrasound; Echogenic intracardiac focus of fetus on ultrasound; , unspecified gestational age Discharge Disposition: Home or Self Care 11/09/2024 12:30 PM EDT Office Visit [facility] MATERNAL MEDICINE [address] [facility] [address] [place] [address] Suhail Champion MD Family history [...] Priority Date/Time Associated Diagnosis Comments [facility] Routine 02/01/2025 2:27 PM EDT Gestational diabetes mellitus (GDM) in third trimester controlled on oral hypoglycemic drug [facility] Routine 01/04/2025 2:48 PM EDT Gestational diabetes mellitus (GDM) in third trimester controlled on oral hypoglycemic drug Family history of congenital heart defect Echogenic focus of heart of fetus affecting antepartum care of mother, single or unspecified fetus , unspecified gestational age [facility] Routine 12/07/2024 1:24 PM EDT Diet controlled gestational diabetes mellitus (GDM) in third trimester [facility] Routine 11/09/2024 1:30 PM EDT Abnormal ultrasound Echogenic intracardiac focus of fetus on ultrasound , unspecified gestational age from Last 3 Months Results * [facility] (02/01/2025 2:27 PM EDT) Only the most recent of4 resultswithin the time period is included. Anatomical Region Laterality Modality Ultrasound 02/01/2025 2:04 PM EDT Narrative 02/01/2025 2:40 PM EDT PAT NAME: MANJINDERREGGIEBladimir [facility] REC#: [id number] DA: [id number] PAT GEND: F PAT TYPE: O EXAM ANAYELI: [id number] REF PHYS KATIE LOO Comparison Studies The [...] EFW (oz) 9 oz EFW by: Hadlock ([id number]) Extended Cav. septi pel. tr 6.6 mm Maintenance Shop Clerk 8.9 mm Head / Face / Neck [...] Heart / Thorax 3-vessel view: Appears normal 2-mfhgjm-nhugcco view: Appears normal Cord insertion: Normal Stomach: [...] at 37 weeks gestation. Coding ====== Description: 44534-75 Follow Up Ultrasound Description: 79542-54 BPP without NST Mounter Flutes And Piccolos: RT Rox Rankin , [facility] Physician: Brijesh Champion MD, FACOG Electronically signed by: Brijesh Champion MD, FACOG at: 14:40 Procedure Note Suhail Champion MD - 02/01/2025 PAT NAME: CARLOS BANG MED REC#: [id number] DA: 2000 PAT GEND: F PAT TYPE: O EXAM ANAYELI: [id number] REF PHYS KATIE LOO Comparison Studies The findings of this study are compared to the prior ultrasound studydated 01/04/25 Patient Status Outpatient Indication ======== GDM. Previous c/s x 1. Obesity BMI 38. Maternal Assessment Iqscra724 cm Height (ft)5 ft Height (in)0 in Wntkhn60 kg Weight (lb)195 lb BMI37.79 kg/m Method ======= Transabdominal ultrasound examination. View: Good view ========= Ariza . Number of fetuses: 1 Dating ====== Method of dating:based on stated IVETT GA by prior itxayeoado70 w + 4 d IVETT by prior assessment:02/18/2025 Ultrasound examination on:02/01/2025 GA by U/S based upon:AC, BPD, Femur, HC GA by U/S37 w + 6 d IVETT by U/S:02/16/2025 Previous dating:based on stated IVETT, selected on 01/04/2025 Agreed IVETT of previous datin02/18/2025 Assigned:based on stated IVETT, selected on 02/01/2025 Assigned GA37 w + 4 d Assigned IVETT:02/18/2025 ikrqxd320 d Biometry Standard BPD91.2 mm 37w 0d 54% Hadlock FBI710.8 mm -/- 84% Onur HC331.9 mm 37w 6d 33% Hadlock AC348.0 mm 38w 5d 90% Hadlock Femur73.8 mm 37w 5d 56% Hadlock Thysxkh87.6 mm 38w 0d 89% Onur HC / AC0.95 EFW3,419 g 38w 6d 74% Hadlock EFW (lb)7 lb EFW (oz)9 oz EFW by:Hadlock ([id number]) Extended Cav. septi pel. tr6.6 mm Vp8.9 mm Head / Face / Neck Cephalic index0.79 18% Nicolaides Extremities / Bony Struc FL / BPD0.81 FL / HC0.22 FL / AC0.21 Other Structures WOM932 bpm General Evaluation Cardiac activity present. FHR [...] normal Heart / Thorax 3-vessel view:Appears normal 4-mzdfif-ksuczhx view:Appears normal Cord insertion:Normal Stomach:Appears normal Kidneys:Appears [...] Follow Up Ultrasound Description: BPP without NST Mounter Flutes And Piccolos: Yuli Euceda RT R , [facility] Physician: Brijesh Champion MD, FACOG Electronically signed by: Brijesh Champion MD, FACOG at: 14:40 us Subha Valenzuela MD G US ORDERABLES Final Result from Last 3 Months Insurance [facility] Care Teams Middle School Music Teacher Relationship Specialty Start Date End Date Donaldo Morgan MD [address] [place] [facility] [address] [place] [address] PCP - General Family Medicine 11/09/24
--- NOTE | 2025-02-05 13:45 | US_ITS ---
PROCEDURE: US OB BIOPHYSICAL PROFILE CLINICAL INDICATION: GDM COMPARISON: US US OB /MATERNAL DETAIL from 10/05/2024 US US OB BIOPHYSICAL PROFILE from 01/15/2025 FINDINGS: Transabdominal sonographic images of the uterus were obtained. From her established due date she is 38weeks 1day. The following parameters are obtained: Viable Fetus in the cephalic presentation with a right lateral placenta grade 2-3. The cervix measures 3.76 cm Measurements: heart Rate = 135bpm Amniotic fluid index: 9.48cm, MVP 3.71 cm Qualitative AFV:2 Breathing movements: 2 Gross Body Movements: 2 Tone: 2 Biophysical profile score: 8 No obvious anomalies evident.Kidneys, stomach, bladder, four-chamber heart, three-vessel cord appear normal. IMPRESSION: 1. Viable fetus in the cephalic presentation with a right lateral placenta grade 2-3. 2. The fluid is within normal limits with an amniotic fluid index 9.48 cm, MVP 3.71 cm. 3. Biophysical profile is 8/8 with good breathing movement and movement seen. 4. Limited anatomical scan appears normal. Dictated by: Xavier Black MD 02/05/2025 17:56 Xavier Black MD in OV 02/05/2025 17:56
== END 2025-02-05 23:59 | disposition home or self-care (01) ==
LOC: RAD 13:37
PROVIDERS: PCP Family Medicine; Visit Provider Obstetrics & Gynecology
DX: O24.410 Gestational diabetes mellitus in pregnancy, diet controlled (principal); Z3A.38 38 weeks gestation of pregnancy
CPT/HCPCS: 76819

== ENCOUNTER 2025-02-13 05:02 | Inpatient (IN) | payer OTHER, SELFPAY ==
--- OUTSIDE RECORDS SUMMARY | 2025-01-04 13:39 | XMS_ITS | Encounter Summary ---
Author Organization [facility] Address [address] [place] [address] Care Team Providers Care Cigar Making Supervisor Name Role Phone Donaldo Morgan MD Primary Care Provider [phone] [phone] Reason for Referral * Diagnostic Imaging (Routine) - Closed Specialty Diagnoses / Procedures Referred By Contac t Referred To Contact Radiology Diagnoses Gestational diabetes mellitus (GDM) in third trimester controlled on oral hypoglycemic drug Family history of congenital heart defect Echogenic focus of heart of fetus affecting antepartum care of mother, single or unspecified fetus , unspecified gestational age Procedures [facility] Diagnostic [place] Suhail Champion MD [address] [place] [address] Phone: tel: fax: Referral ID Status Reason Start Date Expiration Date Visits Re quested Visits Authorized [id number] Closed 12/07/2024 03/08/2026 1 1 Reason for [...] unspecified fetus , unspecified gestational age Procedures [facility] Diagnostic [place] Suhail Champion MD [address] [facility] [address] Phone: tel: fax: Referral ID Status Reason Start Date Expiration Date Visits Re quested Visits Authorized [id number] Closed 12/07/2024 03/08/2026 1 1 Encounter Details Date Type Department Care Team (Late st Contact Info) Description 01/04/2025 1:39 PM EDT - 01/04/2025 11:59 PM EDT Hospital Encounter [facility] [address] [place] [phone] Suhail Champion MD [address] [facility] [address] [place], [place] [id number] Gestational diabetes mellitus (GDM) in third trimester [...] mouth Daily. 10/30/2024 Blood Glucose Monitoring Suppl (DiObexuch Verio Flex System) w/Device kit CHECK GLUCOSE FOUR TIMES DAILY FASTING AND 2 HOURS AFTER EACH MEAL 11/24/2024 FeroSul 325 (65 Fe) MG tablet Take 1 tablet by mouth Daily. 10/30/2024 Lancets (Kingnaru EntertainmentTouch Delica Plus Yydmgd45K) misc USE TO TEST BLOOD SUGAR FOUR [...] Procedure Name Priority Date/Time Associated Diagnosis Comments [facility] Routine 01/04/2025 2:48 PM EDT Gestational diabetes mellitus (GDM) in third trimester controlled on oral hypoglycemic drug Family history of congenital heart defect Echogenic focus of heart of fetus affecting antepartum care of mother, single or unspecified fetus , unspecified gestational age documented in this encounter Results * [facility] (01/04/2025 2:48 PM EDT) Anatomical Region Laterality Modality Ultrasound 01/04/2025 2:21 PM EDT Narrative 01/07/2025 9:37 PM EDT PAT NAME: CARLOS BANG [facility] REC#: [id number] DA: [id number] PAT GEND: F PAT TYPE: O EXAM ANAYELI: [id number] REF PHYS KATIE LOO Comparison Studies The [...] EFW (oz) 8 oz EFW by: Hadlock (CYU-OZ-CW-FL) Extended Cav. septi pel. tr 6.2 mm Livestock Broker 7.4 mm CM 9.0 mm 86% Nicolaides [...] view: Appears normal 3-vessel view: Appears normal 4-ypnkvt-rkvlkpv view: Appears normal Cord insertion: Normal Stomach: [...] Follow up 4 weeks Coding ====== Description: 29966-68 Follow Up Ultrasound Description: BPP without NST Workday Senior Associate: RT Rox Rankin , [facility] Physician: Subha Valenzuela MD, FACOG Electronically signed by: Subha Valenzuela MD, FACOG at: 21:37 Procedure Note Subha Valenzuela MD - 01/07/2025 PAT NAME: [facility] REC#: [id number] DA: [id number] PAT GEND: F PAT TYPE: O EXAM ANAYELI: [id number] REF PHYS KATIE LOO Comparison Studies The findings of this study are compared to the prior ultrasound studydated 12/07/24 Patient Status Outpatient Indication ======== GDM. Previous c/s x 1. Obesity BMI 38. Maternal Assessment Egglqc610 cm Height (ft)5 ft Height (in)0 in Uhdtaq46 kg Weight (lb)196 lb BMI37.98 kg/m Method ======= Transabdominal ultrasound examination. View: Good view ========= Ariza . Number of fetuses: 1 Dating ====== Method of dating:based on stated IVETT GA by prior uzhazktwbs06 w + 4 d IVETT by prior assessment:02/18/2025 Ultrasound examination on:01/04/2025 GA by U/S based upon:AC, BPD, Femur, HC GA by U/S35 w + 1 d IVETT by U/S:02/07/2025 Previous dating:based on stated IVETT, selected on 11/09/2024 Agreed IVETT of previous datin02/18/2025 Assigned:based on stated IVETT, selected on 01/04/2025 Assigned GA33 w + 4 d Assigned IVETT:02/18/2025 nyspii873 d Biometry Standard BPD87.6 mm 35w 3d 90% Hadlock YBN598.8 mm 39w 6d >99% Onur HC321.6 mm 36w 2d 82% Hadlock Cerebellum tr47.0 mm 35w 3d 73% Hill AC302.9 mm 34w 2d 72% Hadlock Femur67.4 mm 34w 5d 69% Hadlock Pjofakh52.5 mm 34w 4d 83% Onur HC / AC1.06 EFW2,491 g 34w 4d 75% Hadlock EFW (lb)5 lb EFW (oz)8 oz EFW by:Hadlock (FLK-ZQ-DI-FL) Extended Cav. septi pel. tr6.2 mm Vp7.4 mm CM9.0 mm 86% Nicolaides Head / Face / Neck Cephalic index0.76 13% Nicolaides Extremities / Bony Struc FL / BPD0.77 FL / HC0.21 FL / AC0.22 Other Structures WVF079 bpm General Evaluation Cardiac activity present. FHR [...] Ductal arch view:Appears normal 3-vessel view:Appears normal 1-tnitgx-kjbszjt view:Appears normal Cord insertion:Normal Stomach:Appears normal Kidneys:Appears [...] Recommendation Follow up 4 weeks Coding ====== Description:92636-00 Follow Up Ultrasound Description:84263-61 BPP without NST Workday Senior Associate: RT Rox Rankin , [facility] Physician: Subha Valenzuela MD, FACOG Electronically [...] age documented in this encounter Care Teams Cigar Making Supervisor Relationship Specialty Start Date End Date Donaldo Morgan MD [address] [facility] [address] [place] [address] PCP - General Family Medicine 11/09/24 documented as of this encounter
--- OUTSIDE RECORDS SUMMARY | 2025-01-04 14:15 | XMS_ITS | Encounter Summary ---
Author Organization [facility] Address [address] [place] [address] Care Team Providers Care Account Services Manager Name Role Phone Donaldo Morgan MD Primary Care Provider +1 [phone] Reason for Referral * Diagnostic Imaging (Routine) - Closed Specialty Diagnoses / Procedures Referred By Contac t Referred To Contact Radiology Diagnoses Gestational diabetes mellitus (GDM) in third trimester controlled on oral hypoglycemic drug Procedures [facility] Subha Valenzuela MD [address] [facility] [address] [place] [address] Phone: tel: fax: [facility] US PER DIAG CTR [address] [place] [address] Phone: tel: Referral ID Status Reason Start Date Expiration Date Visits Re quested Visits Authorized [id number] Closed 01/07/2025 04/08/2026 1 1 Reason for Visit * Reason Comments GDM; prev. c/s x1; obesity Encounter Details Date Type Department Care Team (Late st Contact Info) Description 01/04/2025 2:15 PM EDT Office Visit [facility] MATERNAL MEDICINE [address] [facility] [address] [place] [address] Subha Valenzuela MD [address] [facility] [address] [place] [address] Gestational diabetes mellitus (GDM) in third [...] under imaging tab of patient chart in [facility] (Viewpoint report). Subha Valenzuela MD documented in this encounter Plan of Treatment Not on file documented as of this encounter Results * [facility] (02/01/2025 2:27 PM EDT) Anatomical Region Laterality Modality Ultrasound 02/01/2025 2:04 PM EDT Narrative 02/01/2025 2:40 PM EDT PAT NAME: CARLOS BANG MED REC#: [id number] DA: 2000 PAT GEND: F PAT TYPE: O EXAM ANAYELI: [id number] REF PHYS KATIE LOO Comparison Studies The [...] EFW (oz) 9 oz EFW by: Hadlock (JEV-ZC-AS-FL) Extended Cav. septi pel. tr 6.6 mm Heater Furnace 8.9 mm Head / Face / Neck [...] Heart / Thorax 3-vessel view: Appears normal 7-cmxjyq-ectqizm view: Appears normal Cord insertion: Normal Stomach: [...] at 37 weeks gestation. Coding ====== Description: 35750-85 Follow Up Ultrasound Description: 40031-44 BPP without NST Public Affairs Specialist: Yuli Euceda RT R , [facility] Physician: Brijesh Champion MD, FACOG Electronically signed by: Brijesh Champion MD, FACOG at: 14:40 Procedure Note Suhail Champion MD - 02/01/2025 PAT NAME: CARLOS BANG MED REC#: [id number] DA: [id number] PAT GEND: F PAT TYPE: O EXAM ANAYELI: [id number] REF PHYS KATIE LOO Comparison Studies The findings of this study are compared to the prior ultrasound studydated 01/04/25 Patient Status Outpatient Indication ======== GDM. Previous c/s x 1. Obesity BMI 38. Maternal Assessment Ftwkgz859 cm Height (ft)5 ft Height (in)0 in Mzrghi60 kg Weight (lb)195 lb BMI37.79 kg/m Method ======= Transabdominal ultrasound examination. View: Good view ========= Ariza . Number of fetuses: 1 Dating ====== Method of dating:based on stated IVETT GA by prior iyeyndonvz43 w + 4 d IVETT by prior [...] Standard BPD91.2 mm 37w 0d 54% Hadlock HRZ735.8 mm -/- 84% Onur HC331.9 mm 37w 6d 33% Hadlock AC348.0 mm 38w 5d 90% Hadlock Femur73.8 mm 37w 5d 56% Hadlock Jhfagts54.6 mm 38w 0d 89% Onur HC / AC0.95 EFW3,419 g 38w 6d 74% Hadlock EFW (lb)7 lb EFW (oz)9 oz EFW by:Hadlock (PEF-GO-SN-FL) Extended Cav. septi pel. tr6.6 mm Vp8.9 mm Head / Face / Neck Cephalic index0.79 18% Nicolaides Extremities / Bony Struc FL / BPD0.81 FL / HC0.22 FL / AC0.21 Other Structures RQH022 bpm General Evaluation Cardiac activity present. FHR [...] normal Heart / Thorax 3-vessel view:Appears normal 0-ayvnun-ontfdan view:Appears normal Cord insertion:Normal Stomach:Appears normal Kidneys:Appears [...] delivery at 37 weeks gestation. Coding ====== Description:94047-96 Follow Up Ultrasound Description:73233-77 BPP without NST Public Affairs Specialist: RT Rox Rankin , [facility] Physician: Brijesh Champion MD, FACOG Electronically signed by: Brijesh Champion MD, FACOG at: 14:40 us Subha Valenzuela MD IMG US ORDERABLES Final Result documented in this encounter Visit Diagnoses Diagnosis Gestational diabetes mellitus (GDM) in third trimester controlled on oral hypoglycemic drug- Primary Gestational diabetes mellitus (GDM) in third trimester controlled on oral hypoglycemic drug documented in this encounter Care Teams Account Services Manager Relationship Specialty Start Date End Date Donaldo Morgan MD [facility] [address] [facility] [address] [place] [address] PCP - General Family Medicine 11/09/24 documented as of this encounter
--- OUTSIDE RECORDS SUMMARY | 2025-02-01 13:54 | XMS_ITS | Encounter Summary ---
Author Organization [facility] Address [address] [place] [address] Care Team Providers Care Magneto Electrician Name Role Phone Donaldo Morgan MD Primary Care Provider [phone] Reason for Referral * Diagnostic Imaging (Routine) - Closed Specialty Diagnoses / Procedures Referred By Contac t Referred To Contact Radiology Diagnoses Gestational diabetes mellitus (GDM) in third trimester controlled on oral hypoglycemic drug Procedures [facility] [place] Subha Valenzuela MD [address] [place] [address] Phone: tel: fax: [facility] [address] [place] [address] Phone: tel: Referral ID Status Reason Start Date Expiration Date Visits Re quested Visits Authorized [id number] Closed 01/07/2025 04/08/2026 1 1 Reason for Visit * Diagnostic Imaging (Routine) - Closed Specialty Diagnoses / Procedures Referred By Contac t Referred To Contact Radiology Diagnoses Gestational diabetes mellitus (GDM) in third trimester controlled on oral hypoglycemic drug Procedures [facility] Subha Valenzuela MD [address] [place] [address] [address] Phone: tel: fax: [facility] [address] [place] [address] Phone: tel: Referral ID Status Reason Start Date Expiration Date Visits Re quested Visits Authorized [id number] Closed 01/07/2025 04/08/2026 1 1 Encounter Details Date Type Department Care Team (Hernan tse Contact Info) Description 02/01/2025 1:54 PM EDT - 02/01/2025 11:59 PM EDT Hospital Encounter [facility] [address] [facility] [place] [place] [id number] Subha Valenzuela MD [address] [place] [address] Gestational diabetes mellitus (GDM) in third trimester controlled on oral hypoglycemic drug Discharge Disposition: Home or Self Care Social [...] 1 tablet by mouth Daily. 10/30/2024 Lancets (OneTouch Delica Plus Rkhcej23A) misc USE TO TEST BLOOD SUGAR FOUR [...] Procedure Name Priority Date/Time Associated Diagnosis Comments [facility] Routine 02/01/2025 2:27 PM EDT Gestational diabetes mellitus (GDM) in third trimester controlled on oral hypoglycemic drug documented in this encounter Results * [facility] (02/01/2025 2:27 PM EDT) Anatomical Region Laterality Modality Ultrasound 02/01/2025 2:04 PM EDT Narrative 02/01/2025 2:40 PM EDT PAT NAME: CARLOS BANG [facility] REC#: [id number] DA: 2000 PAT GEND: F PAT TYPE: O EXAM ANAYELI: [id number] REF PHYS KATIE LOO Comparison Studies The [...] EFW (oz) 9 oz EFW by: Hadlock ([id number]) Extended Cav. septi pel. tr 6.6 mm Communications Instructor 8.9 mm Head / Face / Neck [...] Heart / Thorax 3-vessel view: Appears normal 9-cyyhjv-haivhia view: Appears normal Cord insertion: Normal Stomach: [...] at 37 weeks gestation. Coding ====== Description: 75506-63 Follow Up Ultrasound Description: 79170-18 BPP without NST Wetland Scientist: RT Rox Rankin , [facility] Physician: Brijesh Champion MD, FACOG Electronically signed by: Brijesh Champion MD, FACOG at: 14:40 Procedure Note Suhail Champion MD - 02/01/2025 PAT NAME: CARLOS BANG MED REC#: [id number] DA: [id number] PAT GEND: F PAT TYPE: O EXAM ANAYELI: [id number] REF PHYS KATIE LOO Comparison Studies The findings of this study are compared to the prior ultrasound studydated 01/04/25 Patient Status Outpatient Indication ======== GDM. Previous c/s x 1. Obesity BMI 38. Maternal Assessment Ydzqfz601 cm Height (ft)5 ft Height (in)0 in Zayjdp00 kg Weight (lb)195 lb BMI37.79 kg/m Method ======= Transabdominal ultrasound examination. View: Good view ========= Ariza . Number of fetuses: 1 Dating ====== Method of dating:based on stated IVETT GA by prior ploivtajct72 w + 4 d IVETT by prior assessment:02/18/2025 Ultrasound examination on:02/01/2025 GA by U/S based upon:AC, BPD, Femur, HC GA by U/S37 w + 6 d IVETT by U/S:02/16/2025 Previous dating:based on stated IVETT, selected on 01/04/2025 Agreed IVETT of previous datin02/18/2025 Assigned:based on stated IVETT, selected on 02/01/2025 Assigned GA37 w + 4 d Assigned IVETT:02/18/2025 uizfjc754 d Biometry Standard BPD91.2 mm 37w 0d 54% Hadlock KFC892.8 mm -/- 84% Onur HC331.9 mm 37w 6d 33% Hadlock AC348.0 mm 38w 5d 90% Hadlock Femur73.8 mm 37w 5d 56% Hadlock Biobnne46.6 mm 38w 0d 89% Onur HC / AC0.95 EFW3,419 g 38w 6d 74% Hadlock EFW (lb)7 lb EFW (oz)9 oz EFW by:Hadlock ([id number]) Extended Cav. septi pel. tr6.6 mm Vp8.9 mm Head / Face / Neck Cephalic index0.79 18% Nicolaides Extremities / Bony Struc FL / BPD0.81 FL / HC0.22 FL / AC0.21 Other Structures NTY979 bpm General Evaluation Cardiac activity present. FHR [...] normal Heart / Thorax 3-vessel view:Appears normal 3-ujanjz-lvhblpn view:Appears normal Cord insertion:Normal Stomach:Appears normal Kidneys:Appears [...] Amniotic fluid volume 8 Biophysical profile score Consultation / Office Visit Office note to follow Impression ========= Size consistent with dates but with AC at nearly 90% for dates. No anomalies were identified. Amniotic fluid volume is normal. Umbilical artery S/D ratio is normal. BPP 02/23 today. Patient counseled re movement. Recommendation Follow-up as clinically indicated. Continue testing. Recommend delivery at 37 weeks gestation. Coding ====== Description:28705-70 Follow Up Ultrasound Description:66964-86 BPP without NST Wetland Scientist: RT Rox Rankin , [facility] Physician: Brijesh Champion MD, FACOG Electronically signed by: Brijesh Champion MD, FACOG at: 14:40 us Subha Valenzuela MD IMG US ORDERABLES Final Result documented in this encounter Visit Diagnoses Diagnosis Gestational diabetes mellitus (GDM) in third trimester controlled on oral hypoglycemic drug documented in this encounter Care Teams Magneto Electrician Relationship Specialty Start Date End Date Donaldo Morgan MD [address] [facility] [address] [place] [address] PCP - General Family Medicine 11/09/24 documented as of this encounter
--- OUTSIDE RECORDS SUMMARY | 2025-02-01 14:15 | XMS_ITS | Encounter Summary ---
Author Organization [facility] Address [address] [place] [address] Care Team Providers Care Agribusiness Professor Name Role Phone Donaldo Morgan MD Primary Care Provider [phone] [phone] Reason for Visit * Reason Comments GDM; prev. c/s Encounter Details Date Type Department Care Team (Late st Contact Info) Description 02/01/2025 2:15 PM EDT Office Visit [facility] MATERNAL MEDICINE [address] [facility] [address] [place], [place] [phone] Shuail Champion MD [address] [facility] [address] [place] [address] , unspecified gestational age (Primary Dx); Diet [...] not been responding to messages in her Flowityt. By patient report her glucoses are going [...] not been responding to messages in her Flowityt. By patient report her glucoses are going [...] or [facility]. Suhail Champion MD Maternal Medicine, [facility] Diagnostic [place] 02/01/2025 documented in this encounter Plan of Treatment Not on file documented as of this encounter Visit Diagnoses Diagnosis , unspecified gestational age- Primary Diet controlled gestational diabetes mellitus (GDM) in third trimester documented in this encounter Care Teams Agribusiness Professor Relationship Specialty Start Date End Date Donaldo Morgan MD [facility] [address] [place] [address] PCP - General Family Medicine 11/09/24 documented as of this encounter
[2025-02-13] VITALS (7 sets, daily range): BP systolic 93–124; BP diastolic 53–80; PULSE 72–92; RESP 14–18; TEMP 36.7; O2SAT 97–99; BMI 37.8; BMI 409.9
--- OUTSIDE RECORDS SUMMARY | 2025-02-13 05:05 | XMS_ITS | Encounter Summary ---
Author Organization [facility] Address [address] [place] [address] Care Team Providers Care Ship Scraper Name Role Phone Donaldo Morgan MD Primary Care Provider +1 -[phone] Encounter Details Date Type Department Care Team [...] on filedocumented in this encounter Care Teams Ship Scraper Relationship Specialty Start Date End Date Donaldo Morgan MD [address] [place] [facility] [address] [place] [address] PCP - General Family Medicine 11/09/24 documented as of this encounter
--- OUTSIDE RECORDS SUMMARY | 2025-02-13 05:05 | XMS_ITS | Clinical Summary ---
Author Organization [facility] Address [address] [place] [address] Care Team Providers Care Knife Operator Name Role Phone Donaldo Morgan MD Primary Care Provider [phone] [phone] Allergies No known active allergies Medications Aspirin [...] MEAL 11/24/2024 Active Lancets (OneTouch Delica Plus [id number]) misc USE TO TEST BLOOD SUGAR FOUR [...] not been responding to messages in her [place]. By patient report her glucoses are going [...] Description 02/01/2025 2:15 PM EDT Office Visit [facility] [address] [address] Suhail Champion MD , unspecified gestational age (Primary Dx); Diet controlled gestational diabetes mellitus (GDM) in third trimester 02/01/2025 1:54 PM EDT - 02/01/2025 11:59 PM EDT Hospital Encounter [facility] [address] [place] [address] Subha Valenzuela MD Gestational diabetes mellitus (GDM) in third trimester controlled on oral hypoglycemic drug Discharge Disposition: Home or Self Care 02/01/2025 Travel 01/17/2025 Telephone [facility] [address] [place] [address] Mamta Gomez, RN Med Management 01/17/2025 Telephone [facility] [address] [facility] [address] [place] [address] Mamta Gomez, RN Med Management 01/04/2025 2:15 PM EDT Office Visit [facility] [address] [facility] [address] [place] [address] Subha Valenzuela MD Gestational diabetes mellitus (GDM) in third trimester controlled on oral hypoglycemic drug (Primary Dx) 01/04/2025 1:39 PM EDT - 01/04/2025 11:59 PM EDT Hospital Encounter [facility] [address] [place] [id number] Suhail Champion MD Gestational diabetes mellitus (GDM) in third trimester controlled on oral hypoglycemic drug; Family history of congenital heart defect; Echogenic focus of heart of fetus affecting antepartum care of mother, single or unspecified fetus; , unspecified gestational age Discharge Disposition: Home or Self Care 01/04/2025 Travel 12/07/2024 1:15 PM EDT Office Visit [facility] [address] [address] Suhail Champion MD Gestational diabetes mellitus (GDM) in third trimester controlled on oral hypoglycemic drug (Primary Dx); Family history of congenital heart defect; Echogenic focus of heart of fetus affecting antepartum care of mother, single or unspecified fetus; , unspecified gestational age 0512/07/2024 12:37 PM EDT - 12/07/2024 11:59 PM EDT Hospital Encounter [facility] [address] [place] [address] Katie Loo MD Diet controlled gestational diabetes mellitus (GDM) in third trimester Discharge Disposition: Home or Self Care 12/07/2024 Documentation [facility] [address] [facility] [address] [place] [address] Puja Amador RN 12/07/2024 Travel from Last 3 Months Social History [...] Procedure Name Priority Date/Time Associated Diagnosis Comments [facility] Routine 02/01/2025 2:27 PM EDT Gestational diabetes mellitus (GDM) in third trimester controlled on oral hypoglycemic drug [facility] Routine 01/04/2025 2:48 PM EDT Gestational diabetes mellitus (GDM) in third trimester controlled on oral hypoglycemic drug Family history of congenital heart defect Echogenic focus of heart of fetus affecting antepartum care of mother, single or unspecified fetus , unspecified gestational age [facility] Routine 12/07/2024 1:24 PM EDT Diet controlled gestational diabetes mellitus (GDM) in third trimester from Last 3 Months Results * [facility] (02/01/2025 2:27 PM EDT) Only the most recent of3 resultswithin the time period is included. Anatomical Region Laterality Modality Ultrasound 02/01/2025 2:04 PM EDT Narrative 02/01/2025 2:40 PM EDT PAT NAME: CARLOS BANG [facility] REC#: [id number] DA: [id number] PAT GEND: F PAT TYPE: O EXAM ANAYELI: [id number] REF PHYS KATIE LOO Comparison Studies The [...] EFW (oz) 9 oz EFW by: Hadlock ([id number]) Extended Cav. septi pel. tr 6.6 mm Wardrobe Technician 8.9 mm Head / Face / Neck [...] Heart / Thorax 3-vessel view: Appears normal 7-gnuatk-pnytdzb view: Appears normal Cord insertion: Normal Stomach: [...] at 37 weeks gestation. Coding ====== Description: 68353-30 Follow Up Ultrasound Description: 67399-56 BPP without NST Operations Engineer: RT Rox Rankin , [facility] Physician: Brijesh Champion MD, FACOG Electronically signed by: Brijesh Champion MD, FACOG at: 14:40 Procedure Note Suhail Champion MD - 02/01/2025 PAT NAME: CARLOS BANG MED REC#: [id number] DA: [id number] PAT GEND: F PAT TYPE: O EXAM ANAYELI: [id number] REF PHYS LOOKATIE Comparison Studies The findings of this study are compared to the prior ultrasound studydated 01/04/25 Patient Status Outpatient Indication ======== GDM. Previous c/s x 1. Obesity BMI 38. Maternal Assessment Tqgxoe390 cm Height (ft)5 ft Height (in)0 in Rwwycs13 kg Weight (lb)195 lb BMI37.79 kg/m Method ======= Transabdominal ultrasound examination. View: Good view ========= Ariza . Number of fetuses: 1 Dating ====== Method of dating:based on stated IVETT GA by prior cyksluzaam34 w + 4 d IVETT by prior assessment:02/18/2025 Ultrasound examination on:02/01/2025 GA by U/S based upon:AC, BPD, Femur, HC GA by U/S37 w + 6 d IVETT by U/S:02/16/2025 Previous dating:based on stated IVETT, selected on 01/04/2025 Agreed IVETT of previous datin02/18/2025 Assigned:based on stated IVETT, selected on 02/01/2025 Assigned GA37 w + 4 d Assigned IVETT:02/18/2025 cvsysh565 d Biometry Standard BPD91.2 mm 37w 0d 54% Hadlock QDO191.8 mm -/- 84% Onur HC331.9 mm 37w 6d 33% Hadlock AC348.0 mm 38w 5d 90% Hadlock Femur73.8 mm 37w 5d 56% Hadlock Gveulyp49.6 mm 38w 0d 89% Onur HC / AC0.95 EFW3,419 g 38w 6d 74% Hadlock EFW (lb)7 lb EFW (oz)9 oz EFW by:Hadlock ([id number]) Extended Cav. septi pel. tr6.6 mm Vp8.9 mm Head / Face / Neck Cephalic index0.79 18% Nicolaides Extremities / Bony Struc FL / BPD0.81 FL / HC0.22 FL / AC0.21 Other Structures UHO990 bpm General Evaluation Cardiac activity present. FHR [...] normal Heart / Thorax 3-vessel view:Appears normal 2-coantw-owgldwv view:Appears normal Cord insertion:Normal Stomach:Appears normal Kidneys:Appears [...] delivery at 37 weeks gestation. Coding ====== Description:30802-02 Follow Up Ultrasound Description:92268-16 BPP without NST Operations Engineer: RT Rox Rankin , [facility] Physician: Brijesh Champion MD, FACOG Electronically signed by: Brijesh Champion MD, FACOG at: 14:40 us Subha Valenzuela MD IMG US ORDERABLES Final Result from Last 3 Months Insurance [facility] Care Teams Knife Operator Relationship Specialty Start Date End Date Donaldo Morgan MD [address] [facility] [address] [place] [address] PCP - General Family Medicine 11/09/24
--- OUTSIDE RECORDS SUMMARY | 2025-02-13 05:05 | XMS_ITS | Encounter Summary ---
[facility] Address [address] [place] [address] Care Team Providers Care Financial Legal Assistant Name Role Phone Donaldo Morgan MD Primary Care Provider [phone] [phone] Reason for Visit * Reason Onset Date Comments Med Management 01/17/2025 Encounter Details Date Type Department Care Team (Late st Contact Info) Description 01/17/2025 Telephone [facility] [address] [facility] [address] [place] [address] Mamta Gomez, RN Med Management [...] AM EDT LM for pt to check 7 Cups [employer] Tea message documented in this encounter Plan of Treatment Not on file documented as of this encounter Visit Diagnoses Not on filedocumented in this encounter Care Teams Financial Legal Assistant Relationship Specialty Start Date End Date Donaldo Morgan MD [address] [facility] [address] [place] [address] PCP - General Family Medicine 11/09/24 documented as of this encounter
--- OUTSIDE RECORDS SUMMARY | 2025-02-13 05:05 | XMS_ITS | Clinical Summary ---
Author Organization [facility] Address [address] [facility] [place] [address] Phone Care Team Providers Care Disaster Recovery Coordinator Name Role Phone Unavailable Primary Care Provider Unavailabl e Allergies No known active allergies Medications vit no.331-ftqo-rox ic 27 mg iron- 800 mcg Oral [...] 2356 ; Surgeon: Chasidy Robert MD; Location: [facility]; Service: Obstetrics Medical History Medical [...] EDT Supervision of normal first , antepartum LABOR[employer] AD[employer] STE[employer] JOIST CYTOLOGY REQUEST (PAP ONLY) Routine 07/23/2021 3:35 PM EST Encounter for supervision of normal first in first trimester from Last 3 Months or Most Recently Relevant to Health Maintenance Results * CHLAMYDIA/GC BY TMA (01/14/2022 10:30 AM EDT) Chlamydia trachomatis Not Detected Not Detected 01/15/2022 2:23 AM EDT [facility] Neisseria gonorrhoeae Not Detected Not Detected 01/15/2022 2:23 AM EDT [employer] Swab SPECIMEN FROM UTERINE CERVIX / Unknown 01/14/2022 10:30 AM EDT 01/14/2022 10:30 AM EDT Narrative [facility] - 01/15/2022 2:23 AM EDT Testing methodology is flat screen worker mediated amplification (TMA) using the Aptima Combo 2 assay from [employer]. A negative result does not completely rule [...] AL ORDERABLES Final Result [facility], [address] , [place] [address] * LABORER ADJUSTABLE STEEL JOIST CYTOLOGY REQUEST (PAP ONLY) (07/23/2021 3:35 PM EST) CASE REPORT Gynecologic Cytology Report Case: [id number] Authorizing Provider: Abby Aguilar, Collected: 07/23/2021 1535 FORGING OPERATOR Ordering Location: [facility] Edg Received: 07/23/2021 1535 First Screen: [place] Dunbar CT Specimen: LIQUID-BASED PAP - CERVICAL/ENDOCERV ICAL, Cervix, Endocervical 07/25/2021 9:26 AM EST [facility] PAP FINAL DIAGNOSIS Negative for intraepithelial lesion or malignancy 07/25/2021 9:26 AM EST [facility] at 0926 EST MICROSCOPIC DESCRIPTION Microscopic examination is performed and the findings corroborate the diagnosis. 07/25/2021 9:26 AM EST [facility] PAP SMEAR ADEQUACY Satisfactory for evaluation 07/25/2021 9:26 AM EST [facility] PAP ORGANISMS NOTED Abundant bacteria present. 07/25/2021 9:26 AM EST [facility] ENDOCERVICAL T-ZONE Transformation zone present 07/25/2021 9:26 AM EST [facility] EMBEDDED IMAGES 9:26 AM EST [facility] PAP DISCLAIMER The Pap Smear is a screening test that aids in the detection of cervical cancer and cancer precursors. Both false positive and false negative results can occur. The test should be used at regular intervals, and positive results should be confirmed before definitive therapy. Processed using the ThinPrep Electrolysist Automated cytology screening device ([employer]). 07/25/2021 9:26 AM EST [facility] Thin Prep ENDOCERVICAL STRUCTURE / Unknown 07/23/2021 3:35 PM EST 07/23/2021 3:35 PM EST Abby Aguilar FORGING OPERATOR CYTOLOGY ORDERABLES Fi [place]al [place] [address] from Last 3 Months or Most Recently Relevant to Health Maintenance Insurance [id number] TAM [id number] [id number] [facility] [address] [address]Y [address] [address] Advance Directives For more information, please contact: [phone] * Full Code (Latest Code Status on File) Date Activated Date Inactivated Comments 02/05/2022 10:00 PM 02/10/2022 5:14 PM
--- OUTSIDE RECORDS SUMMARY | 2025-02-13 05:05 | XMS_ITS | Encounter Summary ---
[facility] Address [address] [place] [address] Care Team Providers Care Hand Woven Carpet And Rug Mender Name Role Phone Donaldo Morgan MD Primary Care Provider [phone] Reason for Visit * Reason Onset Date Comments Med Management 01/17/2025 Encounter Details Date Type Department Care Team (Late st Contact Info) Description 01/17/2025 Telephone [facility] [address] [facility] [address] [place] [address] Mamta Gomez, RN Med Management [...] RN - 01/17/2025 4:07 PM EDT Sent [employer] message documented in this encounter Plan of Treatment Not on file documented as of this encounter Visit Diagnoses Not on filedocumented in this encounter Care Teams Hand Woven Carpet And Rug Mender Relationship Specialty Start Date End Date Donaldo Morgan MD [address] [facility] [address] [place] [address] PCP - General Family Medicine 11/09/24 documented as of this encounter
--- OUTSIDE RECORDS SUMMARY | 2025-02-13 05:05 | XMS_ITS | Encounter Summary ---
Author Organization [facility] Address [address] [place] [address] Care Team Providers Care Engineering Job Titles Name Role Phone Donaldo Morgan MD Primary Care Provider [phone] Encounter Details Date Type Department Care Team [...] on filedocumented in this encounter Care Teams Engineering Job Titles Relationship Specialty Start Date End Date Donaldo Morgan MD [address] [facility] [address] [place] [address] PCP - General Family Medicine 11/09/24 documented as of this encounter
[2025-02-13] MEDS: LACTATED RINGERS 1000ML 2,000 ML 999 ML IV (05:35)
[2025-02-13 06:09] LABS: Microscopic, Urine URINE MICROSCOPIC (MICROSCOPIC)
[2025-02-13 06:18] LABS: Bilirubin,Urine Negative (Negative); Glucose,Urine (UA) Negative (Negative); Ketones,Urine 1+ (Negative); Leukocyte Esterase,Urine 1+ (Negative); PH,Urine 6.0 (5.0-8.5); Protein,Urine Negative (Negative); Specific Gravity, Urine 1.025 (1.005-1.030); Urobilinogen,Urine 1.0 EU/dl (0.2)
[2025-02-13 06:19] LABS: Hematocrit 37.0 % (37.0-47.0); Hemoglobin 12.4 g/dL (12.2-16.2); Immature Granulocytes % 0.4 %; Mean Corpuscular HGB Conc 33.5 g/dL (31.8-35.4); Mean Corpuscular Hemoglobin 27.7 pg (27.0-31.2); Mean Corpuscular Volume 82.6 fl (81-99); Nucleated Red Blood Cells % 0 %; Platelet Count 278 K/mm3 (142-424); Red Blood Count 4.48 M/mm3 (4.20-5.40); Red Cell Distribution Width-SD 39.6 fL; White Blood Count 9.1 K/mm3 (4.8-10.8)
[2025-02-13 06:26] LABS: Color,Urine Dark Yellow (Yellow)
[2025-02-13 06:27] LABS: Bacteria,Urine 2+ /lpf; Mucus,Urine 1+ /lpf
[2025-02-13 07:03] LABS: POC Glucose,Bedside 81 (70-110)
[2025-02-13 07:14] LABS: Alanine Aminotransferase 16 U/L (12-78); Albumin Level 3.7 g/dl (3.5-5.0); Albumin/Globulin Ratio 1.4 (1.1-1.8); Alkaline Phosphatase 160 U/L (38-126); Anion Gap 10.1 mEq/L (5-15); Aspartate Amino Transferase 25 U/L (14-36); Bilirubin,Total 0.3 mg/dl (0.2-1.3); Blood Urea Nitrogen 7 mg/dl (7-17); Calcium 8.9 mg/dl (8.4-10.2); Carbon Dioxide 21 mmol/L (22.0-30.0); Chloride 107 mmol/L (98-107); Creatinine Clearance Estimated -139 mL/min (50-200); Creatinine,Serum 0.50 mg/dl (0.52-1.04); Estimated Glomerular Filt Rate 150 ml/min (>60); GFR (African American) 182 ML/MIN (>60); Globulin 2.6 g/dL (1.3-3.2); Glucose 78 mg/dl (74-100); Potassium 4.1 mmoL/L (3.5-5.1); Sodium 134 mmol/L (136-145); Total Protein,Serum 6.3 g/dl (6.3-8.2)
[2025-02-13] MEDS: CEFAZOLIN 2GM VIAL 2 GM (07:30)
--- NOTE | 2025-02-13 07:31 | EXP.HP ---
History of Present Illness *Admission Date: 02/13/25 *Reason for visit:: section *History of present illness: Carlos Bang is a pleasant 4-year-old G2, P1 at 39 weeks and 2 days gestation. IVETT is based on her ultrasound. was complicated by previous delivery, GDM A1, rubella nonimmune, and a EIF in the left atrium. She was followed with MFM. On presentation she endorsed good movement, denies leakage of fluid or vaginal bleeding. O+, antibody negative, rubella nonimmune, hepatitis B negative, hepatitis C negative, RPR negative, HIV negative 1 hour GTT: 167 3-hour GTT: 87/208/175/154 GBS negative PFSH PFS Disclaimer: The information contained in this section may have been updated after the patient was seen, as this information can be updated by other users. Medical History Encounter for other preprocedural examination History of anxiety Hx gestational diabetes Surgical History History of placement of ear tubes Hx of wisdom tooth extraction Hx of section Family History (Updated 02/13/25 @ 06:30 by Jessie Kahn RN) Other No significant family history Social History (Updated 02/13/25 @ 06:30 by Jessie Kahn RN) Smoking Status: Never smoker alcohol intake: never current occupational status: employed Travel in the last 8 weeks?: None Have you lived/traveled outside US in past 30 days?: No Contact w/someone who lives/traveled outside US past 30 days?: No Exposure to someone with infectious disease in past 14 days?: No Do you have a fever (greater than 100.4 F or 38 C)?: No Have you tested positive for COVID-19?: No Exposed to someone with COVID-19 in past 14 days?: No Do you have a sore throat?: No Do you have a cough?: No Do you have any weakness?: No Are you experiencing any nausea/vomitting?: No Do you have any diarrhea?: No Are you experiencing any unusual bleeding?: No Do you have any muscle aches/pain?: No Do you have any abdominal pain?: No Are you experiencing loss of taste or smell?: No Other Medical History Have you received the Flu Vaccine for this season: No Have you received the Pneumonia Vaccine: No Review of Systems Review of Systems Review of systems (narrative): Review of Systems Constitutional: Denies fever, chills, and sweats Eyes: Denies vision change/ pain Respiratory: Denies cough and shortness of breath Cardiovascular: Denies chest pain and lightheadedness Gastrointestinal: Denies abdominal pain. Denies nausea, vomiting. Genitourinary: Denies dysuria and incontinence Musculoskeletal: Denies shoulder pain and back pain Neurological: Denies change in speech or headaches Meds Home Medications and Allergies Home Medications ?Medication ?Instructions ?Recorded ?Confirmed ?Type vits no.126-ferrous fum 1 tab PO DAILY 08/02/24 02/13/25 History 28 mg iron-folic acid 800 mcg tablet (Classic ) blood-glucose meter #1 ea 11/24/24 02/08/25 Rx ferrous sulfate 325 mg (65 mg See Rx Instructions .Route 11/24/24 02/13/25 Rx iron) tablet (FeroSul) .COMPLEX #30 tabs blood sugar diagnostic (OneTouch #10 ea 12/05/24 02/08/25 History Verio test strips) blood-glucose meter (OneTouch #1 ea 12/05/24 02/08/25 History Verio Flex Meter) lancets 30 gauge (OneTouch Delica #100 ea 12/05/24 02/08/25 History Plus Lancet) New Prescriptions to Start Prescriptions: Allergies Allergy/AdvReac Type Severity Reaction Status Date / Time No Known Allergies Allergy Verified 02/13/25 06:30 Exam Data for Last 24 hours Vital signs and Labs for Last 24 Hours: Temp Pulse Resp BP Pulse Ox O2 Del Method 98.1 F 92 H 17 124/80 97 Room Air 02/13/25 06:32 02/13/25 06:32 02/13/25 06:32 02/13/25 06:32 02/13/25 06:32 02/13/25 06:32 Laboratory Results - last 24 hr 02/13/25 05:10: Urine Color Dark yellow, Urine Appearance Slightly cloudy, Urine pH 6.0, Ur Specific [place] 1.025, Urine Protein Negative, Urine Glucose (UA) Negative, Urine Ketones 1+, Urine Blood Negative, Urine Nitrate Negative, Urine Bilirubin Negative, Urine Urobilinogen 1.0, Ur Leukocyte Esterase 1+ A, Urine RBC 5-10, Urine WBC 10-20, Ur Squamous Epith Cells 3-5, Urine Bacteria 2+, Urine Mucus 1+ 02/13/25 05:35: WBC 9.1, RBC 4.48, Hgb 12.4, Hct 37.0, MCV 82.6, MCH 27.7, MCHC 33.5, RDW 13.2, Plt Count 278, MPV 9.3, Neut % (Auto) 62.4, Lymph % (Auto) 27.1, Carroll % (Auto) 9.0, Eos % (Auto) 0.8, Baso % (Auto) 0.3, Neut # (Auto) 5.7, Lymph # (Auto) 2.5, Carroll # (Auto) 0.8, Eos # (Auto) 0.1, Baso # (Auto) 0.0, Sodium 134 L, Potassium 4.1, Chloride 107, Carbon Dioxide 21 L, Anion Gap 10.1, BUN 7, Creatinine 0.50 L, Estimated Creat Clear -139 L, Estimated GFR 150, Est GFR ( Amer) 182, Glucose 78, Calcium 8.9, Total Bilirubin 0.3, AST 25, ALT 16, Alkaline Phosphatase 160 H, Total Protein 6.3, Albumin 3.7, Globulin 2.6, Albumin/Globulin Ratio 1.4, Crossmatch (AHG) See Detail 02/13/25 06:56: POC Glucose 81 I & O for Last 24 hours: Intake & Output 02/10/25 02/11/25 02/12/25 02/13/25 23:59 23:59 23:59 23:59 Weight 194 lb 0.003 oz Narrative: General: patient is alert oriented in no acute distress and responds appropriately to questions. HEENT: NCAT, EOMI, moist mucous membranes, neck supple with full ROM Cardiovascular: RRR +S1/S2, no murmurs or rubs Pulmonary: Clear to auscultation bilaterally, nonlabored breathing, symmetric chest rise Abdominal: Gravid abdomen appropriate for gestation. No guarding, rebound, or tenderness noted. Extremities: trace edema, no tenderness or cyanosis noted Skin: Normal turgor, intact, warm. Negative for erythema, pallor, petechia, or lesions Neurologic: Negative for sensory or motor deficit Psychiatric: Normal affect, normal thought process, good judgment and insight, no depression or anxious mood appreciated. *Routine HEENT Exam Head: Present normocephalic and atraumatic Eye: Present EOMI, PERRL and normal accommodation; Absent conjunctival icterus, scleral injection, nystagmus or exophthalmos ENT: Present mucous membranes moist *Routine Respiratory Exam Respiratory: Present CTA bilaterally, normal respiratory effort, able to speak in complete sentences and symmetric chest movement; Absent accessory muscle use, decreased breath sounds, rales, respiratory distress, wheezes, distant breath sounds or diminished air movement *Routine Cardiovascular Exam Cardiovascular: Present RRR, Normal S1 and Normal S2; Absent murmur or gallop *Routine Abdominal Exam Abdominal: Present soft and normoactive bowel sounds; Absent tenderness, distended, rebound or guarding *Routine Rectal Exam Rectal:: deferred *Routine Genitalia Exam Genitalia:: normal female Assessment and Plan *Assessment and plan (1) Obesity (BMI 35.0-39.9 without comorbidity): Status: Acute Category: Medical Code(s): E66.9 - Obesity, unspecified (2) Gestational diabetes mellitus (GDM): Status: Acute Qualifiers: Gestational diabetes mellitus control: diet-controlled Trimester: third trimester Qualified Code(s): O24.410 - Gestational diabetes mellitus in , diet controlled Category: Medical Code(s): O24.419 - Gestational diabetes mellitus in , unspecified control (3) History of primary section: Status: Acute Category: Surgical Code(s): Z98.891 - History of uterine scar from previous surgery (4) delivery, delivered, current hospitalization: Status: Acute Category: Medical Code(s): O82 - Encounter for delivery without indication Plan - Monitor vitals - Admit to L&D for scheduled delivery - External FHR and TOCO monitor - GBS neg/ Blood type: O+ - Hemoglobin: 12.4, Plt: 278 - Plan for spinal anesthesia - Anticipate delivery #GDM A1 - Glucose on admission: 81 - Recommend a 6-week 2-hour gtt. - Discontinue Accu-Cheks Reviewed the risks benefits and alternatives to Repeat delivery. Patient continued to request delivery and not a trial of labor would not be an option after 2 previous deliveries. Discussed the risk of bleeding, infection injury to the surrounding structures. Patient consented to blood transfusion to medically necessary. Reviewed the rare risk of hysterectomy if bleeding is unable to be controlled. Discussed risk of infection, the patient has no allergies and will receive 2 g of Ancef and Azithromycin preoperatively. Reviewed the risk of injury to surrounding structures including the bowel, bladder, reproductive organs, and neurovascular bundles. Patient voiced understanding. Discussed the increased risk with prior surgery and scarring. Patient and significant other voiced understanding desire to proceed
--- NOTE | 2025-02-13 08:11 | EXP.ANES.CKL ---
[facility] Disclaimer: The information contained in this section may have been updated after the patient was seen, as this information can be updated by other users. Medical History Encounter for other preprocedural examination History of anxiety Hx gestational diabetes Surgical History History of placement of ear tubes Hx of wisdom tooth extraction Hx of section Family History (Updated 02/13/25 @ 06:30 by Jessie Kahn RN) Other No significant family history Social History (Updated 02/13/25 @ 06:30 by Jessie Kahn RN) Smoking Status: Never smoker alcohol intake: never substance use type: denies use current occupational status: employed Travel in the last 8 weeks?: None [facility] Anesthesia Checklist Patient Identification Patient Identification: Verbal (Name & ) Structural Data Admitted From: Inpatient Planned Operative Procedure/s: c/section Airway Assessment Mallampati Score:: Class II C-Spine Mobility Assessed: Yes TMJ Mobility Assessed: Yes Dentition: Good Dentition Neurological Assessment Level of Consciousness: Awake, Alert and Appropriate Anesthesia Plan Anesthesia Risk discussed: Yes Anesthesia Plan: Verified ASA Class: II Anesthesia Type: Spinal
[2025-02-13] MEDS: AZITHROMYCIN 500 MG in 0.9 % SODIUM CHLORIDE 250 ML 250 MG IV (08:32)
--- NOTE | 2025-02-13 08:36 | P.CONPHA_ITS ---
Pharmacy Intervention Comments: MEDICATION RECONCILIATION COMPLETED ON PATIENT USING EXTERNAL FILL HISTORY FROM PHARMACY AND LIST FROM HEALTH PRACTICE MANAGER OFFICE. -DENEEN DIAZD
--- NOTE | 2025-02-13 08:36 | HMH.PHAINT1 ---
Pharmacy Intervention Comments: MEDICATION RECONCILIATION COMPLETED ON PATIENT USING EXTERNAL FILL HISTORY FROM PHARMACY AND LIST FROM AGRICULTURE INTERN OFFICE. -DENEEN DIAZD
--- NOTE | 2025-02-13 08:48 | P.OP_ITS ---
Date of procedure: 02/13/25 Pre-op Diagnosis:: 1. 39 weeks 2days gestation, [place] 2. Gestational Diabetes 3. Hx of Delivery 4. GBS negative 5. Rh Positive Post-op Diagnosis:: 1. 39 weeks 2days gestation, [place] 2. Gestational Diabetes 3. Hx of Delivery 4. GBS negative 5. Rh Positive Procedure performed:: Repeat Delivery Surgeon:: Shereen Cedeno DO Financial Secretary(s):: Xavier Black MD GEOGRAPHIC INFORMATION SCIENTIST:: Vinny De Anda Anesthesia: spinal Estimated blood loss (mL): 200 Operative findings:: 1. Live viable male infant: [place]. Weight: 8pounds 2ounces. Apgars 9 and 9 at 1 and 5 minutes respectively 2. Normal-appearing fallopian tubes and ovaries bilaterally Operative note:: Medications: 2 g of Ancef, 500mg IV Azithromycin Summary: Procedure explained in its entirety. The patient was counseled on the risks and benefits of section including bleeding, vascular injury, infection, and injury to the surrounding structures. Hemorrhage requiring life saving blood transfusion resulting in blood born viral infection or allergic reaction was explained and the patient consented to blood transfusion. Possible need for further operative measures prolonging recovery time and hospitalization reviewed to include hysterectomy. Procedure explained in its entirety and patient had no further questions. Consented to procedure. The patient was taken back to the operating room where adequate spinal anesthesia was obtained. Pneumatic compression stockings applied to lower extremities. Above antibiotics were administered for infection prophylaxis. She was placed in the dorsal supine position Urinary catheter was placed and found to be draining clear urine. The patient was prepped and draped in sterile fashion. Anesthesia was tested and and found to be adequate. A Pfannenstiel skin incision was made with the scalpel. Subcutaneous bleeding vessels were cauterized with the bovie. The incision was taken down to the fascia with the bovie. The fascia was knicked in the midline and sharply extended laterally. The superior aspect of the fascia was grasped with Bryan clamps and the rectus muscle was taken down with the Bovie. The rectus muscle was sharply dissected from the midline with Mayos. This process was repeated inferiorly. The rectus muscles were in the midline, peritoneum was identified and entered bluntly. Pepe O retractor was placed and the bladder was noted to be out of the operative field. A bladder flap was created with Metzenbaum scissors and Citizen [place] pickups. The lower uterine segment was easily identified, sharply incised, and entered bluntly with the surgeon's index finger. Incision was then extended in a superior and inferior fashion by blunt separation. Membranes were ruptured revealing clear fluid. The fetus was in cephalic presentation. The head was carefully elevated out of the pelvis. Fundal pressure was applied when head was brought into incision. The infants head was delivered without difficulty. The shoulder and body followed without complication. Delivery occurred at 0759. The mouth and nose were suctioned with a bulb. The umbilical cord was clamped and cut. was taken to warmer for evaluation by the popcorn vendor. Cord blood was collected. The placenta was delivered via fundal massage. IV Pitocin was initiated. Inside of the uterus was gently cleared of blood and clots with lap sponge. The hysterotomy was closed with 0 Vicryl in a running locked fashion. There was a small amount of bleeding and a second imbricating stitch with 0 Vicryl was placed. The lower uterine segment was visualized and noted to be hemostatic. The ovaries and tubes were found to be normal. The posterior aspect of the uterus was cleared of blood clot with a damp lap sponge. The gutters were inspected bilaterally and cleared of blood and clots with lap sponges. The uterine incision was reinspected and hemostasis noted. Pepe O retractor was removed. The peritoneum was reapproximated using a 2-0 Monocryl in a nonlocked running fashion. The fascia was closed in a running nonlocked fashion using 0 PDS x2 meeting right of midline. Fascia was noted as not having gaps or defects. The subcutaneous fat was closed with 2-0 Monocryl interrupted sutures x3. Skin was closed with the 4-0 Monocryl in a subcuticular fashion. Patient tolerated the procedure well and all counts were correct x3, per nursing. Patient will receive tap blocks and then be transported to the OB PACU for recovery and infant bonding. Condition: stable Disposition: floor Specimens:: 1 live viable male 2 placenta 3 Cord blood Complications:: None
--- NOTE | 2025-02-13 08:58 | P.PNANES_ITS ---
[facility] Anesthesia Record Part I Anesthesia Record I Intake, IV Amount: 1,500 Hydration: Adequate Estimated blood loss (mL): 200 Urine output (mL): 0 Blood Products used (#): none Blood Pressure: 103/53 SaO2: 97 Pulse Rate: 83 Airway Patency: Patent Respiratory Rate: 14 Temperature: 98.0 F Patient is:: Awake and Stable Stable to PACU at:: 08:50
[2025-02-13] MEDS: OXYTOCIN/RINGERS LACTATE 30 UNITS/500 ML BAG 40 UNITS IV (10:30)
[2025-02-13 11:37] LABS: RPR W/RFX Titers Nonreactive (Nonreactive)
[2025-02-13] MEDS: ACETAMINOPHEN 500MG TAB 1000 MG PO ×3 (11:57→23:30)
[2025-02-13] MEDS: KETOROLAC 30MG/ML VIAL 30 MG IV ×3 (11:58→23:30)
[2025-02-13 12:27] LABS: Microscopic,Cath URINE MICROSCOPIC (MICROSCOPIC)
[2025-02-13 13:12] LABS: Appearance,Urine/Cath CLEAR (Clear); Blood, Urine/Cath Negative (Negative); Color,Urine/Cath YELLOW (Yellow); Glucose,Urine/Cath (UA) Negative (Negative); Ketones,Urine/Cath TRACE (Negative); Leukocyte Esterase,Cath Negative (Negative); Nitrate,Cath Negative (Negative); PH,Urine/Cath 6.5 (5.0-8.5); Protein,Urine/Cath Negative (Negative); Specific Gravity, Urine/Cath 1.020 (1.005-1.030); Urobilinogen,Cath 1.0 EU/dl (0.2)
[2025-02-13 13:21] LABS: Bilirubin,Cath Negative (Negative)
[2025-02-13 13:23] LABS: Bacteria,Urine/Cath TRACE /lpf; Squamous Epithelial Ur./Cath Occasional #/hpf (0-5)
[2025-02-13] MEDS: OXYCODONE 5MG IMMEDIATE RELEASE TABLET 5 MG PO ×2 (13:44→20:46)
[2025-02-13] MEDS: PRENATAL MULTIVITAMIN W/IRON 1 EACH PO (17:29)
[2025-02-13] MEDS: SENNA 8.6MG TABLET 8.6 MG PO (17:29)
[2025-02-13] MEDS: SIMETHICONE 80MG CHEWABLE TABLET 160 MG PO (17:29)
[2025-02-14] MEDS: OXYCODONE 5MG IMMEDIATE RELEASE TABLET 5 MG PO ×4 (03:13→18:12)
[2025-02-14 05:45] LABS: Hematocrit 30.8 % (37.0-47.0); Immature Granulocytes % 0.3 %; Mean Corpuscular HGB Conc 34.1 g/dL (31.8-35.4); Mean Corpuscular Hemoglobin 28.8 pg (27.0-31.2); Mean Corpuscular Volume 84.4 fl (81-99); Nucleated Red Blood Cells % 0 %; Platelet Count 240 K/mm3 (142-424); Red Blood Count 3.65 M/mm3 (4.20-5.40); Red Cell Distribution Width-SD 41.5 fL; White Blood Count 11.7 K/mm3 (4.8-10.8)
[2025-02-14 05:51] LABS: Hemoglobin 10.4 g/dL (12.2-16.2)
[2025-02-14] MEDS: KETOROLAC 30MG/ML VIAL 30 MG IV (06:11)
[2025-02-14] MEDS: ACETAMINOPHEN 500MG TAB 1000 MG PO ×4 (06:12→23:09)
[2025-02-14] MEDS: SIMETHICONE 80MG CHEWABLE TABLET 160 MG PO (07:50)
[2025-02-14] MEDS: SENNA 8.6MG TABLET 8.6 MG PO (07:51)
--- NOTE | 2025-02-14 15:55 | P.PN_ITS ---
Subjective *Date: 02/14/25 *Time: 16:08 Interval history: Carlos Bang is a G2, P2 day #1 following a RLTCS at 39 weeks and 2 days gestation. was complicated by GDMA1. Routine delivery and course. She is doing well, sitting up in bed, and visiting with brianna corona this morning. -Reports pain is well-controlled -Reports she is tolerating p.o. without nausea or vomiting. -Reports her lochia is scant. -Undecided on contraception -She is breast-feeding her male infant -Ambulating, voiding difficulty or dysuria. Denies chest pain shortness of breath or pain in her legs. No further complaints at this time. Exam Data for Last 24 hours Vital signs and Labs for Last 24 Hours: Temp Pulse Resp BP Pulse Ox O2 Del Method 98.0 F 87 18 115/62 99 Room Air 02/13/25 09:20 02/13/25 09:20 02/13/25 09:20 02/13/25 09:20 02/13/25 09:20 02/13/25 09:20 Laboratory Results - last 24 hr 02/14/25 04:43: WBC 11.7 H D, RBC 3.65 L, Hgb 10.4 L D, Hct 30.8 L, MCV 84.4, MCH 28.8, MCHC 34.1, RDW 13.5, Plt Count 240, MPV 9.5, Neut % (Auto) 67.3, Lymph % (Auto) 22.8, [place] % (Auto) 8.8, Eos % (Auto) 0.6, Baso % (Auto) 0.2, Neut # (Auto) 7.9 H, Lymph # (Auto) 2.7, [place] # (Auto) 1.0, Eos # (Auto) 0.1, Baso # (Auto) 0.0 I & O for Last 24 hours: Intake & Output 02/11/25 02/12/25 02/13/25 02/14/25 23:59 23:59 23:59 23:59 Intake Total 1500 / 1500 Balance 1500 / 1500 Weight 194 lb 0.003 oz Narrative: General: patient is alert oriented in no acute distress and responds appropriately to questions. Appears to be in minimal pain. Sitting up in bed and doing well HEENT: NCAT, EOMI, moist mucous membranes, neck supple with full ROM Cardiovascular: RRR +S1/S2, no murmurs or rubs Pulmonary: Clear to auscultation bilaterally, nonlabored breathing, symmetric chest rise Abdominal: Fundus below the umbilicus, firm, and tenderness appropriate for the period. Extremities: trace edema, no tenderness or cyanosis noted Skin: Normal turgor, intact, warm. Negative for erythema, pallor, petechia, or lesions. Pfannenstiel skin incision well-healed. Dermabond in place Neurologic: Negative for sensory or motor deficit Psychiatric: Normal affect, normal thought process, good judgment and insight, no depression or anxious mood appreciated. Assessment and Plan *Assessment and plan (1) Obesity (BMI 35.0-39.9 without comorbidity): Status: Acute Category: Medical Code(s): E66.9 - Obesity, unspecified (2) Gestational diabetes mellitus (GDM): Status: Acute Qualifiers: Gestational diabetes mellitus control: diet-controlled Trimester: third trimester Qualified Code(s): O24.410 - Gestational diabetes mellitus in , diet controlled Category: Medical Code(s): O24.419 - Gestational diabetes mellitus in , unspecified control (3) History of primary section: Status: Acute Category: Surgical Code(s): Z98.891 - History of uterine scar from previous surgery (4) delivery, delivered, current hospitalization: Status: Acute Category: Medical Code(s): O82 - Encounter for delivery without indication Plan Stable. POD#1 s/p RLTCS -Doing well. VSS. Serial lochia and fundal checks. -Hemoglobin: 12.4--> 10.4 - asymptomatic anemia noted. Vitals stable. Continue monitoring. DC with Fe -O+/antibody negative -, male -Desires circumcision, consents signed and risks reviewed -Contraception: undecided -Follow-up 2 weeks for routine visit -Dispo: home in 1-3 days pending mother/ status #GDM A1 - Glucose on admission: 81 - Recommend a 6-week 2-hour gtt. - Discontinue Accu-Cheks
[2025-02-14] MEDS: IBUPROFEN 400 MG TABLET 800 MG PO ×2 (16:15→23:09)
[2025-02-14 19:34] VITALS: BP 109/65; PULSE 71; RESP 18; TEMP 36.9; O2SAT 98
[2025-02-14 20:11] VITALS: BMI 37.8
[2025-02-15] MEDS: OXYCODONE 5MG IMMEDIATE RELEASE TABLET 5 MG PO ×2 (02:45→08:44)
[2025-02-15 04:25] VITALS: BP 121/62; PULSE 72; RESP 18; TEMP 37; O2SAT 98
[2025-02-15] MEDS: ACETAMINOPHEN 500MG TAB 1000 MG PO (05:50)
[2025-02-15] MEDS: SENNA 8.6MG TABLET 8.6 MG PO (08:44)
[2025-02-15] MEDS: IBUPROFEN 400 MG TABLET 800 MG PO (08:44)
[2025-02-15] MEDS: FERROUS SULFATE 325MG TABLET 325 MG PO (08:44)
--- NOTE | 2025-02-15 08:44 | EXP.DC.SUM ---
General Admission date:: 02/13/25 Discharge date: 02/15/25 HPI HPI HPI: Carlos Bang is a pleasant 4-year-old G2, P1 at 39 weeks and 2 days gestation. IVETT is based on her ultrasound. was complicated by previous delivery, GDM A1, rubella nonimmune, and a EIF in the left atrium. She was followed with MFM. On presentation she endorsed good movement, denies leakage of fluid or vaginal bleeding. O+, antibody negative, rubella nonimmune, hepatitis B negative, hepatitis C negative, RPR negative, HIV negative 1 hour GTT: 167 3-hour GTT: 87/208/175/154 GBS negative Hospital Course Hospital Course Hospital Course: Carlos Bang is a 24-year-old G2, P2 day #2 from a repeat low-transverse delivery at 39 weeks and 2 days gestation. She delivered a live viable male infant on 02/13/2025 at 0 759. Infant weighed 8 pounds and 2 ounces and was 20 inches long. Apgars were 9 and 9 at 1 and 5 minutes respectively. EBL was 200. She is breast and bottlefeeding. Her breastmilk came in well this morning and she has plans to transition to breast only. Hepatitis B negative, rubella nonimmune, GBS negative, blood type: O+. Her was complicated by gestational diabetes, diet-controlled. Accu-Cheks have been discontinued and she is aware that at her 6-week visit we will need to do a 75 g 2-hour GTT. Patient desires discharge home today, routine discharge instructions reviewed in detail and the patient voiced understanding Exam Data for Last 24 hours Vital signs and Labs for Last 24 Hours: Temp Pulse Resp BP Pulse Ox O2 Del Method 98.6 F 72 18 121/62 98 Room Air 02/15/25 04:25 02/15/25 04:25 02/15/25 04:25 02/15/25 04:25 02/15/25 04:25 02/15/25 04:25 I & O for Last 24 hours: Intake & Output 02/12/25 02/13/25 02/14/25 02/15/25 23:59 23:59 23:59 23:59 Intake Total 1500 / 1500 Balance 1500 / 1500 Weight 194 lb 0.003 oz 194 lb Microbiology Reports for the Last 24 Hours: Microbiology 02/13/25 05:10 Urine,Clean Catch Urine Culture - Final Multiple organisms, suggests contamination. Narrative: General: patient is alert oriented in no acute distress and responds appropriately to questions. Appears to be in minimal pain. Sitting up in bed and doing well HEENT: NCAT, EOMI, moist mucous membranes, neck supple with full ROM Cardiovascular: RRR +S1/S2, no murmurs or rubs Pulmonary: Clear to auscultation bilaterally, nonlabored breathing, symmetric chest rise Abdominal: Fundus below the umbilicus, firm, and tenderness appropriate for the period. Extremities: trace edema, no tenderness or cyanosis noted Skin: Normal turgor, intact, warm. Negative for erythema, pallor, petechia, or lesions. Pfannenstiel skin incision well-healed. Dermabond in place Neurologic: Negative for sensory or motor deficit Psychiatric: Normal affect, normal thought process, good judgment and insight, no depression or anxious mood appreciated. DS: Diagnosis Discharge Diagnosis (1) Obesity (BMI 35.0-39.9 without comorbidity): Status: Acute Code(s): E66.9 - Obesity, unspecified (2) Gestational diabetes mellitus (GDM): Status: Acute Code(s): O24.419 - Gestational diabetes mellitus in , unspecified control Qualifiers: Gestational diabetes mellitus control: diet-controlled Trimester: third trimester Qualified Code(s): O24.410 - Gestational diabetes mellitus in , diet controlled (3) History of primary section: Status: Acute Code(s): Z98.891 - History of uterine scar from previous surgery (4) delivery, delivered, current hospitalization: Status: Acute Code(s): O82 - Encounter for delivery without indication Meds Home Medications and Allergies Home Medications ?Medication ?Instructions ?Recorded ?Confirmed ?Type vits no.126-ferrous fum 1 tab PO DAILY 08/02/24 02/13/25 History 28 mg iron-folic acid 800 mcg tablet (Classic ) ferrous sulfate 325 mg (65 mg 325 mg PO DAILY 02/13/25 02/13/25 History iron) tablet (FeroSul) acetaminophen 500 mg tablet 500 mg PO Q6H PRN fever or pain 02/15/25 Rx #30 tabs ibuprofen 800 mg tablet 800 mg PO Q8H PRN pain #60 tabs 02/15/25 Rx oxycodone 5 mg tablet 5 mg PO Q8H PRN pain #15 tabs 02/15/25 Rx sennosides 8.6 mg tablet (Senna 8.6 mg PO BIDP PRN Constipation 02/15/25 Rx Lax) #60 tabs simethicone 125 mg tablet 125 mg PO DAILY PRN abdominal 02/15/25 Rx distention #60 tabs New Prescriptions to Start Prescriptions: acetaminophen Shereen Cedeno ibuprofen Shereen Cedeno oxycodone Shereen Cedeno sennosides [Senna Lax] Shereen Cedeno simethicone Shereen Cedeno Allergies Allergy/AdvReac Type Severity Reaction Status Date / Time No Known Allergies Allergy Verified 02/13/25 06:30 Discharge Plan Disposition Patient Disposition: Home, Self-Care Discharge Order Discharge Orders: Discharge Order (Routine); Ordered 02/15/25 Ordered By: Shereen Cedeno Follow up Plan Follow up with: Shereen Cedeno DO [Staff Physician, [employer]] - Enter time for follow up Prescriptions/Medication Reconciliation: New sennosides [Senna Lax] 8.6 mg Tablet 8.6 mg PO BIDP PRN (Reason: Constipation) Qty: 60 2RF ibuprofen 800 mg tablet 800 mg PO Q8H PRN (Reason: pain) Qty: 60 2RF acetaminophen 500 mg tablet 500 mg PO Q6H PRN (Reason: fever or pain) Qty: 30 3RF simethicone 125 mg tablet 125 mg PO DAILY PRN (Reason: abdominal distention) Qty: 60 2RF oxycodone 5 mg tablet 5 mg PO Q8H PRN (Reason: pain) Qty: 15 0RF Continued Classic 28 mg iron- 800 mcg tablet 1 tab PO DAILY ferrous sulfate [FeroSul] 325 mg (65 mg iron) tablet 325 mg PO DAILY Discontinued (DME) lancets [OneTouch Delica Plus Lancet] 30 gauge misc See Rx Instructions .ROUTE .MEDSUPPLY Qty: 100 Patient Comments: USE TO TEST BLOOD SUGAR FOUR TIMES DAILY FASTING AND 2 HOURS AFTER EACH MEAL Rx Instructions: As directed (DME) OneTouch Verio test strips Strip See Rx Instructions .ROUTE .MEDSUPPLY Qty: 10 Patient Comments: USE TO TEST BLOOD SUGAR FOUR TIMES DAILY FASTING AND 2 HOURS AFTER EACH MEAL Rx Instructions: As directed (DME) blood-glucose meter [OneTouch Verio Flex meter] [facility] See Rx Instructions .ROUTE .MEDSUPPLY Qty: 1 Patient Comments: CHECK GLUCOSE FOUR TIMES DAILY FASTING AND 2 HOURS AFTER EACH MEAL Rx Instructions: As directed (DME) blood-glucose meter Kit See Rx Instructions .ROUTE .MEDSUPPLY Qty: 1 0RF Rx Instructions: Check glucose qid. Fasting & 2 hours after each meal. Problem Reconciliation Problems Reviewed?: Yes Patient Discharge Instructions ACTIVITY: Continue current activity DIET: regular diet Additional Instructions: Congratulations on the delivery of your sweet baby boy. It is my privilege to be your doctor and I am so thankful I could be a part of your special day. Discharge: 1. Take 800 mg Ibuprofen every 8 hours as needed for pain. You can also take 500-1000mg of Tylenol in between doses, every 6-8 hours. Use prescription pain medicine for pain you feel in between 8 hour interval. -No driving while taking narcotic pain medications. In order to drive you should be able to slam on the brakes without significant abdominal pain. 2. Wean from prescription pain medicine first. Do not drive while taking it. 3. Prescription pain medicine can make you constipated. Colace can be taken 1-2 times per day as you need. Make sure to drink at least 8 cups of water per day. 4. Iron supplements can make you constipated. Colace can be taken 1-2 times per day as you need. You can take iron tablets every other day if constipation is too bad. 5. Nothing in the vagina for 6 weeks - no intercourse, douching, tampons. No tub baths or swimming pools 6. Do not lift greater than 15 pounds for 6 weeks, this is the equivalent of 2 gallons of milk. 7. Reasons to return to L&D or call On-Call doctor - fever (greater than 100.4) - heavy vaginal bleeding (soaking through 1 pad in less than 2 hours or passing clots that are egg sized) - vaginal discharge (malodorous and/or purulent) - bleeding or discharge from her incision - severe headaches, leg tenderness/edema, or any other symptoms that warrant immediate medical attention. 8. depression/blues - Normal to feel anxious/overwhelmed for first 2 weeks - Talk to your doctor if: anxiety lasts over 2 weeks, trouble bonding with baby, withdrawing from other family members, thoughts of harming yourself or others Blood pressure and preeclampsia instructions -Please call if greater than 2 values are higher than: 150 systolic (the top number) or 100 diastolic (the bottom number). -Please go to the emergency room or labor and delivery triage if any value is higher than: 160 systolic (the top number) or 110 diastolic (the bottom number). -Please call if unrelenting headache (does not go away with rest or Tylenol or ibuprofen), changes in vision (spots, floaters, flashes of light), chest pain, shortness of breath, or right upper quadrant (liver) abdominal pain. Shereen Cedeno DO [facility] [phone] *Nothing in the Vagina for 6 weeks* *No strenuous activity* *No heavy lifting* *No tub baths until okay's by MD* Patient Instructions: Depression, Hemorrhage, DI for , DI for Pre-eclampsia, [facility] Post Discharge Instructions Print Language: Samoan Providers Primary Care Provider: Amanda Morgan Admit Provider: Xavier Black Attending Provider: Xavier Black
[2025-02-15] MEDS: MEASLES,MUMPS,RUBELLA VACCINE VIAL 0.5 ML SUBCUT (09:05)
== END 2025-02-15 12:47 | disposition home or self-care (01) | DRG 788 ==
PROVIDERS: Obstetrics & Gynecology; Admitting Provider Nurse Practitioner Obstetrics & Gynecology; PCP Family Medicine; Visit Provider Nurse Practitioner Obstetrics & Gynecology
PROC: 10D00Z1 Extraction of Products of Conception, Low, Open Approach (ICD-10-PCS; CPT 59514; principal; 2025-02-13 07:30)
DX: O34.211 Maternal care for low transverse scar from previous cesarean delivery (principal); O24.420 Gestational diabetes mellitus in childbirth, diet controlled; Z3A.39 39 weeks gestation of pregnancy; Z37.0 Single live birth; O99.214 Obesity complicating childbirth; O90.81 Anemia of the puerperium; Z23 Encounter for immunization
CPT/HCPCS: 36415; 51702; 59025; 80053; 81001; 82962; 85025; 86592; 86850; 87086; 90707; 94761; J0456; J0665; J0666; J0690; J1100; J1885; J2003; J2405; J2590; J3010; J7050; J7120